=== PATIENT | male | born 1955 | race Caucasian/White ===

== ENCOUNTER 2024-02-18 07:56 | Inpatient (IN) | payer MEDICARE, BC, SELFPAY ==
[2024-02-18] VITALS (40 sets, daily range): BP systolic 123–171; BP diastolic 69–112; PULSE 56–82; RESP 11–99; TEMP 36.2–37; O2SAT 93–100; BMI 36.2
--- NOTE | 2024-02-18 07:59 | EKG_ITS ---
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
--- NOTE | 2024-02-18 07:59 | XR_ITS ---
Examination: CTA carotids with intravenous contrast CTA brain, head with intravenous contrast. 2-D sagittal, coronal reconstructions. 3-D reconstructions. Exam date and time: February 18, 2024 0815 hours INDICATIONS: Stroke alert, onset focal neurologic deficit CTDI: vol (mGy) 50.22 DLP: (mGycm) 529.72 Technique: Multiple CTA axial brain, head carotid images post intravenous contrast injection 75 cc, Isovue-370. 2-D sagittal, coronal reconstructions. 3-D reconstructions, 3-D post processing including vascular maximum intensity projection images. Low dose protocols were performed. One or more of the following dose reduction techniques were used; automated exposure control, adjustment of the mA and/or KV according to patient size, use of iterative reconstruction technique. Findings: Bilateral thyroid nodules, the largest on the right side 13 mm No significant common carotid carotid bifurcation or internal carotid artery stenoses Codominant vertebral arteries with no critical stenoses Petrous juxtasellar supraclinoid internal carotid arteries do fill The M1 segments middle cerebral arteries as well as middle cerebral artery trifurcation vessels fill Basilar artery posterior cerebral arteries fill with large large vessel occlusions Anterior cerebral arteries fill IMPRESSION: Bilateral thyroid nodules, recommend dedicated thyroid sonography follow-up No significant neck arterial stenoses No cerebral large vessel arterial occlusions depicted, cerebral assessment is limited as the 3-D images are technically poor
--- NOTE | 2024-02-18 07:59 | XR_ITS ---
Examination: CT brain head without contrast. 2-D sagittal coronal reconstructions Date and time of exam:February 17, 2024 at 0803 hrs. Indications: Stroke alert, onset left-sided facial droop this morning CTDI: vol (mGy):51.2 DLP: (mGycm):1169 Technique: Multiple CT axial sections of the brain have been obtained, 5 mm slice thickness. Contrast has not been administered. 2-D sagittal, coronal reconstructions have been obtained Low dose protocols were performed. One or more of the following dose reduction techniques were used; automated exposure control, adjustment of the mA and/or KV according to patient size, use of iterative reconstruction technique. Findings: No significant ventricular enlargement. Intra-axial or extra-axial hemorrhage density is not seen. No mass effect or midline shift Basal cisterns are not remarkable. Fourth ventricle is midline. Cranial vault intact. Impression: Negative for acute hemorrhage, mass effect or midline shift
--- NOTE | 2024-02-18 08:02 | PD.EDNEURO ---
Neuro Symptoms Deficit-RME/HPI General Stated Complaint: STROKE Time Seen by Provider: 02/18/24 07:59 Arrival date/time: 02/18/24 07:56 RME / HPI RME / HPI Narrative: 68 year old male with history of seizures presents to the ED BIBA from home for evaluation of stroke like symptoms today. Per medics, family at home reported patient woke up around 5 am today at his usual state of health. Noticed at around 07:25 am today the patient had left facial droop and left sided weakness. On their evaluation patient had obvious left facial droop, slurred speech, and prehospital BS 153. While in the ED patient reports having a seizure this morning although was not witnessed by any of his family. States with his previous seizures, he typically feels tired afterward, but the symptoms today are new for him. Denies any previous history of CVA. Denies recent illness, fevers, chills, chest pain, cough, shortness of breath, abdominal pain, n/v/d, or urinary symptoms. Related Data Home Medications ?Medication ?Instructions ?Recorded ?Confirmed levetiracetam 750 mg 1,500 mg PO BID Seizures ##30 12/23/12 02/18/24 tablet,extended release 24 hr (Keppra XR) zonisamide 100 mg capsule 300 mg PO BID Seizures #0 caps 12/23/12 02/18/24 clonazepam 1 mg tablet 1 mg PO BID PRN Seizures 02/18/24 02/18/24 omeprazole 40 mg capsule,delayed 40 mg PO QDAY 02/18/24 02/18/24 release phenytoin sodium extended 100 mg 100 mg PO TID 02/18/24 02/18/24 capsule Allergies Allergy/AdvReac Type Severity Reaction Status Date / Time No Known Allergies Allergy Verified 11/23/23 09:09 Review of Systems Review of Systems Narrative Review of Systems: Constitutional: DENIES; Fevers Eyes: DENIES; Loss of vision Head/Ear/Nose: DENIES; Loss of hearing Throat: DENIES; Dysphagia Cardiovascular: DENIES; Chest pain, dyspnea or syncope Respiratory: DENIES; Shortness of breath Gastrointestinal: DENIES; Rectal bleeding or melena. Genitourinary: DENIES; Dysuria (painful or difficult urination) Musculoskeletal: DENIES; Arthralgia (pain in a joint),; Skin: DENIES; Rash Neurological: SEE HPI +Left sided weakness, slurred speech, left facial droop, seizure per patient Psychiatric: DENIES; recent major life stressor, emotional problem, illicit drug use or abuse Endocrinology: DENIES; Weight change Hematologic/Lymphatic: DENIES; Abnormal bruising Allergic/Immunologic: DENIES; Urticaria (hives) Past Medical History Past Medical History NEUROLOGIC: Positive Neurological Disorders, Seizures and Head Trauma (from seizure) RESPIRATORY: Positive Pneumonia ENT: Positive Head Trauma (from seizure) OTHER HISTORY: Positive Hospitalization, Chicken Pox, Measles and Mumps Surgical History SURGICAL: Positive Vasectomy Social History SMOKING STATUS: Never smoker ED Exam Narrative Physical exam: Physical Exam: General: The vital signs were reviewed. Patient is brought in by EMS for stroke alert has obvious dense left hemiparesis and slurring of his words. They also think he may have had a seizure prior to the onset of this see MDM for further discussion. the patient is non-toxic, in no apparent distress and appears healthy with a patent airway, no respiratory distress and has no apparent circulatory problems. Head & Scalp: Normocephalic, atraumatic. Face: Appears normal and is without lesions, deformity. Ears: Left external pinna appears normal. Right external pinna appears normal. Eyes: The sclera is anicteric. No obvious photophobia. The Left and Right Orbit/Lid/Conjunctiva appears normal without swelling, discoloration or injection. Nose: The nose is without deformity, discharge or tenderness; Throat: Appears normal. The mucous membranes are pink and moist without exudates, redness or mass seen. The tongue appears normal. Neck: The neck is supple and no apparent mass or adenopathy. Chest: The chest wall is normal in size and symmetry and has no chest wall tenderness or crepitus. The patient displays normal ventilator effort without retractions, accessory muscle use and has adequate air movement bilaterally with no wheezes and no rales. Cardiovascular: Regular rate and rhythm; No murmurs, rubs, or gallops; Gastrointestinal: The abdomen appears normal. No obvious hernias or mass. The abdomen is soft and benign, non-distended, with no pain, no guarding and no rebound tenderness. Bowel sounds are present and normal sounding. No CVA tenderness. Genitourinary: Back/Spine: Normal inspection Extremities/Musculoskeletal/lymphatic: The bilateral upper and lower extremities are warm. There is no evidence of arterial insufficiency. There is no evidence of venous insufficiency/edema. There is no apparent, injury or trauma. Skin: The skin is warm, dry and intact. No rashes. No petechia. No purpura. No abnormal bruising. The color is appropriate with no cyanosis. Mental status/Psychiatric: Mental status is appropriate for age. The patient has no apparent delusions, visual hallucinations, no apparent audible hallucinations. The patient has no apparent suicidal thoughts/ideation and no apparent homicidal thoughts/ideation. Neurological: The patient is awake, alert, interactive, cordial, cooperative and is oriented to name and situation. The patient follows commands in the ambulance bay has obvious slurring of his words hard to understand at times. He appears to answer his questions appropriately he is got weakness of his right leg 3/5 and is got a dense paresis of his left leg and left arm and can squeeze with his right arm with fairly good strength. Evidently the symptoms are acute on the left side for the last 35 minutes prior to arrival and therefore stroke alert was called. Course Quality Measures Suspected type of Stroke: Unknown at this time Last known well (date): 02/18/24 Last known well (time): 07:25 Tenecteplase given: within 60 min of arrival stroke Orders Category Date Time Status Bedside Blood Glucose NOW Care 02/18/24 07:59 Active Retail Advertising Account Executive NOW Care 02/18/24 07:59 Active Continuous Pulse Oximetry NOW Care 02/18/24 07:59 Active EKG (ED ONLY) *Do not use* NOW Care 02/18/24 07:59 Completed In and Out Catheter NEEDED Care 02/18/24 07:59 Active Insert IV NOW Care 02/18/24 07:59 Active NIH Stroke Scale now Care 02/18/24 07:59 Active NPO NOW Care 02/18/24 07:59 Active Neuro Check Q1H Care 02/18/24 08:00 Active Nurse Swallow Screen x1 Care 02/18/24 07:59 Active Consult to Neurology / Tele-Neurology Routine Cons 02/18/24 07:[address] angio stroke protocol Stat Exams 02/18/24 07:[address] stroke protocol Stat Exams 02/18/24 07:59 Completed EKG (ED Only) Stat Exams 02/18/24 07:59 Draft Blood Culture (Lab) Stat Lab 02/18/24 08:55 Received CBC Stat Lab 02/18/24 08:50 Completed Comprehensive Metabolic Panel Stat Lab 02/18/24 08:10 Completed Drug Screen,Urine Stat Lab 02/18/24 09:00 Completed HCG Titer if Positive Stat Lab 02/18/24 08:10 Completed Lactate (Lactic Acid) Stat Lab 02/18/24 08:50 Completed Magnesium Stat Lab 02/18/24 08:10 Completed Partial Thromboplastin Time Stat Lab 02/18/24 08:10 Completed Prothrombin Time with INR Stat Lab 02/18/24 08:10 Completed Troponin I Stat Lab 02/18/24 08:10 Completed Urinalysis Stat Lab 02/18/24 09:47 Ordered Urine Culture Stat Lab 02/18/24 09:47 Ordered Venous Blood Gas Stat Lab 02/18/24 08:50 Completed Ondansetron Inj [Zofran Inj] Med 02/18/24 07:59 Active 4 mg IV Q4HR PRN Tenecteplase Inj [TNKase Inj] Med 02/18/24 08:37 Discontinued 25 mg IV X1 ONE Tenecteplase Inj [TNKase Inj] Med 02/18/24 08:35 Discontinued 50 mg .ROUTE .STK-MED ONE Oxygen Delivery NOW RT 02/18/24 07:59 Active Vital Signs Vital signs: Vital Signs Pulse Rate 79 02/18/24 08:42 Respiratory Rate 20 02/18/24 08:42 Pulse Oximetry (%) 93 L 02/18/24 08:42 Pulse ox is 98% on room air which is adequate. Neuro Symptoms / Deficit MDM Narrative MDM Narrative:: IKristi am scribing for and in the presence of Dr. Weaver. Patient comes in as a stroke alert is obvious dense left hemiparesis slurring of his words and initial CT scan is negative for any blood in the teleneurologist has seen the patient and is ordered thrombolytics. Patient be an obvious admit to the ICU. On my concerns that since he might of had a seizure before all this is as a Jung's paralysis although there is no previous history of this. Critical care is been called and will be admitting this patient. Patient appears to be more alert and speaking better and moving his left leg now. Note the symptoms are rapidly improving immediately after given the TNK although I am not certain that is the cause of this.. Patient data External records reviewed:: [facility] previous records (I reviewed ED visit on 07/14/2025) Clinical information provided by:: patient and EMS (Provided prehospital course) Social determinants that could affect healthcare access:: none Patient has the following chronic illnesses:: Seizures How is presenting disease/condition affected by chronic disease/condition?: exacerbated by Evaluation data The following diagnostics were reviewed and interpreted by me:: lab results, radiology exam(s) and EKG tracing(s) (Sinus rhythm, rate 73, no STEMI. ) Lab and/or radiology exams considered but not ordered:: None Interpretation Summary: Ordering Physician: Chance Weaver MD Date of Service: 02/18/24 Procedure(s): CT stroke protocol Accession Number(s): [id number] cc: Chance Weaver MD; Kushal Mena MD~ Examination: CT brain head without contrast. 2-D sagittal coronal reconstructions Date and time of exam:February 17, 2024 at 0803 hrs. Indications: Stroke alert, onset left-sided facial droop this morning CTDI: vol (mGy):51.2 DLP: (mGycm):1169 Technique: Multiple CT axial sections of the brain have been obtained, 5 mm slice thickness. Contrast has not been administered. 2-D sagittal, coronal reconstructions have been obtained Low dose protocols were performed. One or more of the following dose reduction techniques were used; automated exposure control, adjustment of the mA and/or KV according to patient size, use of iterative reconstruction technique. Findings: No significant ventricular enlargement. Intra-axial or extra-axial hemorrhage density is not seen. No mass effect or midline shift Basal cisterns are not remarkable. Fourth ventricle is midline. Cranial vault intact. Impression: Negative for acute hemorrhage, mass effect or midline shift Dictated By: Kushal Mena MD Signed By: <Electronically signed by Kushal Mena MD in [place]> 02/18/24 0821 Ordering Physician: Chance Weaver MD Date of Service: 02/18/24 Procedure(s): CT angio stroke protocol Accession Number(s): [id number] cc: Chance Weaver MD; Kushal Mena MD~ Examination: CTA carotids with intravenous contrast CTA brain, head with intravenous contrast. 2-D sagittal, coronal reconstructions. 3-D reconstructions. Exam date and time: February 18, 2024 0815 hours INDICATIONS: Stroke alert, onset focal neurologic deficit CTDI: vol (mGy) 50.22 DLP: (mGycm) 529.72 Technique: Multiple CTA axial brain, head carotid images post intravenous contrast injection 75 cc, Isovue-370. 2-D sagittal, coronal reconstructions. 3-D reconstructions, 3-D post processing including vascular maximum intensity projection images. Low dose protocols were performed. One or more of the following dose reduction techniques were used; automated exposure control, adjustment of the mA and/or KV according to patient size, use of iterative reconstruction technique. Findings: Bilateral thyroid nodules, the largest on the right side 13 mm No significant common carotid carotid bifurcation or internal carotid artery stenoses Codominant vertebral arteries with no critical stenoses Petrous juxtasellar supraclinoid internal carotid arteries do fill The M1 segments middle cerebral arteries as well as middle cerebral artery trifurcation vessels fill Basilar artery posterior cerebral arteries fill with large large vessel occlusions Anterior cerebral arteries fill IMPRESSION: Bilateral thyroid nodules, recommend dedicated thyroid sonography follow-up No significant neck arterial stenoses No cerebral large vessel arterial occlusions depicted, cerebral assessment is limited as the 3-D images are technically poor Dictated By: Kushal Mena MD Signed By: <Electronically signed by Kushal Mena MD in [place]> 02/18/24 0922 Medications / Prescriptions Medications or Prescriptions considered but not ordered:: None Medication administrations:: Medication Administration History Acetaminophen (Acetaminophen 325 Mg Tablet) 650 mg PO Q4HR PRN PRN Reason: PAIN SCALE 1-3 (mild Stop: 03/19/24 09:18 Acetaminophen (Acetaminophen Supp 650 Mg Supp) 650 mg AK Q4HR PRN PRN Reason: PAIN SCALE 1-3 (mild Stop: 03/19/24 09:18 Al Hydrox/Mg Hydrox/Simethicone (Mg Hyd/Al Hyd/Daniel (Maalox Reg) Susp 30 Ml Udc) 30 ml PO Q4HR PRN PRN Reason: Heartburn or Upset Stomach Stop: 03/19/24 09:18 Nicardipine/Sodium Chloride (Cardene Ivpb) 20 mg in 200 mls @ 50 mls/hr IV .Q4H PRN; Protocol PRN Reason: PER PROTOCOL Stop: 03/19/24 09:23 Sodium Chloride (Ns) 1,000 mls @ 50 mls/hr IV .Q20H GERARDO Stop: 03/19/24 15:46 Labetalol HCl (Labetalol Inj 5 Mg/Ml Vial 20 Ml) 10 mg IV X1 PRN PRN Reason: BP 180/105 and HR > 70 Magnesium Hydroxide (Milk Of Magnesia Susp 30 Ml Udc) 30 ml PO QDAY PRN PRN Reason: CONSTIPATION Stop: 03/19/24 09:18 Nitroglycerin (Nitroglycerin 0.4 Mg Subl Btl #25) 0.4 mg SL Q5MIN PRN PRN Reason: CHEST PAIN Ondansetron HCl (Ondansetron Inj 2 Mg/Ml Inj 2 Ml) 4 mg IV Q4HR PRN PRN Reason: NAUSEA OR VOMITING Stop: 03/19/24 07:58 Discontinued Medications Labetalol HCl (Labetalol Inj 5 Mg/Ml Vial 20 Ml) 10 mg IV X1 PRN PRN Reason: BP 180/105 Stop: 03/19/24 09:23 Tenecteplase (Tenecteplase Inj 50 Mg Vial) 25 mg IV X1 ONE Stop: 02/18/24 08:38 Last Admin: 02/18/24 08:46 Dose: 25 mg Documented By: AM Co-signed By: MEREDITH Tenecteplase (Tenecteplase Inj 50 Mg Vial) Confirm Administered Dose 50 mg .ROUTE .STK-MED ONE Stop: 02/18/24 08:36 Last Admin: 02/18/24 08:47 Dose: Not Given Documented By: AM Non-Admin Reason: Override Medication See above Consultations Consultation(s) initiated? (list below): Yes Consultation #1 (Physician, Specialty, Details): I spoke with teleneurologist Dr. Menendez, reports patient is a candidate for TNKase and will be ordered. Time: 08:50 Consultation #2 (Physician, Specialty, Details): I spoke with burn nurse Dr. Duong as noted above. Diagnosis Neuro Differential Diagnosis: subarachnoid hemorrhage, cerebrovascular accident, transient cerebral ischemia and other (Seizure) Most likely diagnosis given after review of the tests above:: Acute left hemiparesis Slurred speech seizure disorder Admission Indicated Admission indicated?: indicated Admission Request Was there a request for admission?: Yes Admission Attestation Admission request attestation: Discussed case with [] from Hospitalist service regarding admission. Discussed patients ED course, exam findings, labs, and radiology results. The Hospitalist [agrees,declines] to accept the patient for admission. Disposition Plan Disposition Plan: Admit Critical Care Time Critical Care Time Critical Care Time: Yes Total Critical Care Time (min.): 45 Attestation: The high probability of sudden, clinically significant deterioration in the patient's condition required the highest level of my preparedness to intervene urgently. The services I provided to this patient were to treat and/or prevent clinically significant deterioration. Services included the following: chart data review, reviewing nursing notes and/or old charts, documentation time, building energy consultant collaboration regarding findings and treatment options, medication orders and management, direct patient care, vital sign assessments and ordering, interpreting and reviewing diagnostic studies and lab tests. Aggregate critical care time includes only time during which I was engaged in work directly related to the patient's care, as described above, whether at bedside or elsewhere in the Emergency Department. It did not include time spent performing other reported procedures or the services of residents, students, nurses or physician assistants. Discharge Plan Plan Patient Disposition: Admit Acute Care w/in Hospital Problem List Clinical Impression: Acute left hemiparesis, Slurred speech, Hx of seizure disorder
[2024-02-18 08:37] LABS: HCG Titer if Positive Negative
[2024-02-18 08:39] LABS: Alanine Aminotransferase 17 U/L (10-49); Albumin, Serum 4.1 gm/dL (3.4-4.8); Albumin/Globulin Ratio 1.6 (1.2-2.2); Alkaline Phosphatase 94 U/L (46-116); Anion Gap 8 (7-16); Aspartate Amino Transferase 21 U/L (0-34); BUN/Creatinine Ratio 18 Ratio (12-20); Bilirubin,Total 0.3 mg/dL (0.3-1.2); Blood Urea Nitrogen 18 mg/dL (9-23); Calcium 9.5 mg/dL (8.3-10.6); Calcium (Corrected) 9.5 mg/dL (8.5-10.1); Carbon Dioxide 22.6 mMol/L (20.0-31.0); Chloride 108 mMol/L (98-107); Estimated Creatinine Clearance 86.7 mL/min (>60); Globulin 2.5 gm/dL (2.3-3.5); Glucose 154 mg/dL (74-106); Osmolality,Calculated 282 (275-295); Potassium 3.9 mMol/L (3.4-5.1); Sodium 139 mMol/L (136-145); Total Protein 6.6 gm/dL (5.7-8.2); Troponin I < 0.020 ng/mL (0.0-0.045); eGFR > 60 See Note
[2024-02-18 08:41] LABS: INR 1.1 (0.9-1.3); Partial Thromboplastin Time 20.8 Seconds (22.0-36.0); Prothrombin Time 12.3 Seconds (9.0-12.2)
[2024-02-18] MEDS: TENECTEPLASE INJ 50 MG VIAL 25 MG IV (08:46)
--- NOTE | 2024-02-18 08:50 | PD.TNEURO ---
Tele Neuro Consultation Consultation Date 02/18/24 Laboratory-Coagulation Panel PT 12.3 Seconds (9.0-12.2) H 02/18/24 08:10 INR 1.1 (0.9-1.3) 02/18/24 08:10 APTT 20.8 Seconds (22.0-36.0) L 02/18/24 08:10 Consultation Narrative [facility] TeleNeurology Consult Services Patient Name:???Brock Mcintyre Date of :???1955 Identification Number:??? Date of Service:???02/18/2024 07:53:52 Diagnosis:?I63.89 - Cerebrovascular accident (CVA) due to other mechanism ([facility]) Impression: ?Acute onset of left-sided weakness involving the face, upper and lower extremity with considerable dysarthria, unclear if it was preceded by a seizure event. Patient has a known history of seizures, however there is no clear history of Ujng's paralysis after seizure. Will treat this as an acute vascular event. ?Concern is for right basal ganglia versus pontine infarct. ?Head CT appears unremarkable with no hemorrhage or acute ischemic changes. ?Patient qualifies for IV thrombolysis. Last well-known less than 4-1/2 hours. ?Risks and benefits of IV thrombolysis was discussed in detail with the who was reached at [phone]. Indications and contraindications were also discussed in detail. ? agrees to IV thrombolytic treatment recommendation. ?TNKase was administered without any complication. ? ?Seizure recommendations ?Patient displayed considerable improvement soon after TNKase administration. Likely Jung's paralysis after breakthrough seizures. ?Please obtain Dilantin level. Restart home seizure medications. Obtain MRI brain with and without contrast. If MRI brain is negative for any acute ischemia, most likely postseizure Jung's paralysis. May need AED adjustment. Our recommendations are outlined below. Recommendations: IV Tenecteplase recommended. I confirmed the following. (Patient name, , MRN, Blood Pressure, dose of Thrombolytic and waste, weight completed by stretcher/scale not stated weight, have ED staff inform ED MD of thrombolytic decision) Thrombolytic bolus given Without Complication. IV Tenecteplase Total Dose ? 25.0 mg Routine post Thrombolytic monitoring including neuro checks and blood pressure control during/after treatment Monitor blood pressure Check blood pressure and neuro assessment every 15 min for 2 h, then every 30 min for 6 h, and finally every hour for 16 h. Manage Blood Pressure per post Thrombolytic protocol. ? Follow designated hospital protocol for admission and post thrombolytic care ? CT brain 24 hours post Thrombolytic ? NPO until swallowing screen performed and passed ? No antiplatelet agents or anticoagulants (including heparin for DVT prophylaxis) in first 24 hours ? No Cohen catheter, nasogastric tube, arterial catheter or central venous catheter for 24 hr, unless absolutely necessary ? Telemetry ? Bedside swallow evaluation ? HOB less than 30 degrees ? Euglycemia ? Avoid hyperthermia, PRN acetaminophen ? DVT prophylaxis ? Inpatient Neurology Consultation ? Stroke evaluation as per inpatient neurology recommendations Discussed with ED physician Advanced Imaging:Advanced imaging has been ordered. Results pending. Metrics: Last Known Well: 02/18/2024 06:00:00 Dispatch Time: 02/18/2024 07:53:52 Arrival Time: 02/18/2024 07:53:57 Initial Response Time: 02/18/2024 07:58:06Symptoms: Left sided weakness. Initial patient interaction: 02/18/2024 08:13:56 NIHSS Assessment Completed: 02/18/2024 08:16:30Patient is a candidate for Thrombolytic. Thrombolytic Medical Decision: 02/18/2024 08:19:08 Needle Time: 02/18/2024 08:44:43Weight Noted by Staff: 108.4 kg I personally Reviewed the CT Head and it Showed no acute changes Primary Provider Notified of Diagnostic Impression and Management Plan on: 02/18/2024 08:48:24 Thrombolytic Contraindications: Last Known Well > 4.5 hours:?No CT Head showing hemorrhage:?No Ischemic stroke within 3 months:?No Severe head trauma within 3 months:?No Intracranial/intraspinal surgery within 3 months:?No History of intracranial hemorrhage:?No Symptoms and signs consistent with an SAH:?No GI malignancy or GI bleed within 21 days:?No Coagulopathy: Platelets <100 000 /mm3, INR >1.7, aPTT>40 s, or PT >15 s:?No Treatment dose of LMWH within the previous 24 hrs:?No Use of NOACs in past 48 hours:?No Glycoprotein IIb/IIIa receptor inhibitors use:?No Symptoms consistent with infective endocarditis:?No Suspected aortic arch dissection:?No Intra-axial intracranial neoplasm:?No Thrombolytic Decision and Management Plan: Management with thrombolytic treatment was explained to the Family as was risks and benefits and alternatives to the treatment. Patient agrees with the decision to proceed with thrombolytic treatment. . All questions were answered and the Family expressed understanding of the treatment plan. History of Present Illness:Patient is a 68 year old Male. Patient was brought by EMS for symptoms of Left sided weakness. Patient is a 68-year-old male with a past medical history of seizures, GERD is being evaluated for concerns of left-sided weakness. Patient woke up at approximately 6 AM this morning. As per who was reached at [phone] patient was normal and went and took a shower at approximately 6 to 6:30 AM. Soon after that patient had a seizure, unclear if the witnessed it. And after that he has been having left-sided weakness involving the face and arm. mentions that he regularly takes his seizure medications. His medications for seizures include Dilantin, Keppra, zonisamide and clonazepam. Patient mentions that he typically does not have weakness after his seizure. Mentions that this is all new. ? Past Medical History: ?Stroke ?Seizures ?There is no history of Hypertension ?There is no history of Diabetes Mellitus ?There is no history of Hyperlipidemia Other PMH:? GERD Medications: No Anticoagulant use? No Antiplatelet use Reviewed EMR for current medications Allergies:? Description:?As per chart Social History: Smoking: No Alcohol Use: No Drug Use: No Family History: There is no family history of premature cerebrovascular disease pertinent to this consultation ROS : 14 Points Review of Systems was performed and was negative except mentioned in HPI. Past Surgical History: There Is No Surgical History Contributory To Today?s Visit ? Examination: BP(142/78),?Pulse(72),?Blood Glucose(153) 1A: Level of Consciousness - Alert; keenly responsive?+ 0 1B: Ask Month and Age - Both Questions Right?+ 0 1C: Blink Eyes & Squeeze Hands - Performs Both Tasks?+ 0 2: Test Horizontal Extraocular Movements - Normal?+ 0 3: Test Visual Oneal - No Visual Loss?+ 0 4: Test Facial Palsy (Use Grimace if Obtunded) - Minor paralysis (flat nasolabial fold, smile asymmetry)?+ 1 5A: Test Left Arm Motor Drift - No Effort Against [place]?+ 3 5B: Test Right Arm Motor Drift - No Drift for 10 Seconds?+ 0 6A: Test Left Leg Motor Drift - Drift, hits bed?+ 2 6B: Test Right Leg Motor Drift - No Drift for 5 Seconds?+ 0 7: Test Limb Ataxia (FNF/Heel-Powell) - No Ataxia?+ 0 8: Test Sensation - Normal; No sensory loss?+ 0 9: Test Language/Aphasia - Normal; No aphasia?+ 0 10: Test Dysarthria - Severe Dysarthria: Unintelligble Slurring or Out of Proportion to Aphasia?+ 2 11: Test Extinction/Inattention - No abnormality?+ 0 NIHSS Score:?8 Pre-Morbid Modified Kenton Scale:Unable to assess Spoke with :?ED Provider This consult was conducted in real time using interactive audio and video technology. Patient was informed of the technology being used for this visit and agreed to proceed. Patient located in hospital and provider located at home/office setting. Patient is being evaluated for possible acute neurologic impairment and high probability of imminent or life-threatening deterioration. I spent total of 60 minutes providing care to this patient, including time for face to face visit via telemedicine, review of medical records, imaging studies and discussion of findings with providers, the patient and/or family. Dr Rajeev Menendez [facility] For Inpatient follow-up with [facility] physician please call [facility] at . As we are not an outpatient service for any post hospital discharge needs please contact the hospital for assistance. If you have any questions for the [facility] physicians or need to reconsult for clinical or diagnostic changes please contact us via [facility] at . ?
--- NOTE | 2024-02-18 09:05 | PC.NURSE ---
blood pressure cuff readjusted.
[2024-02-18 09:14] LABS: Collection Type, Urine Catheter; Squamous Epithelial Cell,Urine 0 /hpf (0-5)
[2024-02-18 09:18] LABS: Base Excess, Venous -4 (-3-3); O2 Saturation, Venous 97 % (96-97); PCO2, Venous 42 mmHg (36-56); PO2, Venous 81 mmHg (15-58); pH, Venous 7.32 (7.33-7.66)
[2024-02-18 09:19] LABS: Lactate (Lactic Acid) 1.6 mMol/L (0.4-2.0)
--- NOTE | 2024-02-18 09:22 | ECHO_ITS ---
Transthoracic Echo Report Ht (in): 68 Wt (lb): 239 Exam Location: Portable Status: Preadmit Fast Food Manager: Sharda Mora Indications: Procedure Performed: BP: 138 / 81 HR: 60 Rhythm: Sinus Technical Quality: Technically difficult study Contrast: Agitated Saline Total Dose (mL): MEASUREMENTS (Male / Female) Normal Values 2D ECHO LV Diastolic Diameter PLAX 4.7 cm 4.2 - 5.9 / 3.9 - 5.3 cm LV Systolic Diameter PLAX 3.3 cm IVS Diastolic Thickness 1.0 cm 0.6 - 1.0 / 0.6 - 0.9 cm LVPW Diastolic Thickness 1.0 cm 0.6 - 1.0 / 0.6 - 0.9 cm LV Relative Wall Thickness 0.4 LVOT Diameter 1.8 cm LA Volume Index 22.7 cm?/m? 16 - 28 cm?/m? Ascending Aorta Diameter 3.3 cm M-MODE Aortic Root Diameter MM 2.9 cm LA Systolic Diameter MM 4.0 cm LA Ao Ratio MM 1.4 AV Cusp Separation MM 1.7 cm DOPPLER AV Peak Velocity 112.0 cm/s AV Peak Gradient 5.0 mmHg AV Mean Gradient 3.0 mmHg AV Velocity Time Integral 26.6 cm LVOT Peak Velocity 96.1 cm/s LVOT Peak Gradient 3.7 mmHg LVOT Velocity Time Integral 23.0 cm LVOT Cardiac Index 1510.8 cm?/min?m? AV Area Cont Eq vti 2.2 cm? AV Area Cont Eq pk 2.2 cm? MV Peak Velocity 80.3 cm/s MV Peak Gradient 2.6 mmHg MV Mean Velocity 44.2 cm/s MV Mean Gradient 1.0 mmHg MV Area PHT 3.4 cm? MR Peak Velocity 349.0 cm/s MR Peak Gradient 48.7 mmHg Mitral E Point Velocity 64.0 cm/s Mitral A Point Velocity 89.2 cm/s Mitral E to A Ratio 0.7 LV E' Lateral Velocity 10.4 cm/s Mitral E to LV E' Lateral Ratio 6.2 LV E' Septal Velocity 8.2 cm/s Mitral E to LV E' Septal Ratio 7.8 FINDINGS Left Ventricle Normal left ventricular size, wall thickness, systolic function with no obvious regional wall motion abnormalities. The ejection fraction is visually estimated at 55-60%. Right Ventricle The right ventricle is normal in size and systolic function. Left Atrium The left atrium is normal by two-dimensional, color flow and Doppler imaging with no structural abnormalities, no thrombus formation present. Right Atrium The right atrium is normal by two-dimensional imaging, color flow and Doppler imaging with no struct ural abnormalities, no thrombus formation present. Atrial Septum The interatrial septum appears normal with no evidence of a shunt. Aorta The aorta is normal by two-dimensional, color flow and Doppler interrogation. Mitral Valve The mitral valve is normal by two-dimensional, color flow and Doppler interrogation. There is mild m itral valve regurgitation. Aortic Valve The aortic valve is trileaflet and normal by two-dimensional, color flow and Doppler interrogation. There is trace aortic valve regurgitation. Tricuspid Valve The tricuspid valve is normal by two-dimensional, color flow and Doppler interrogation. There is tra ce tricuspid valve regurgitation. Pulmonic Valve There is trace pulmonic valve regurgitation. Vessels The pulmonary artery appears normal. The inferior vena cava pulmonary and hepatic veins appear kae l. Pericardium The pericardium is normal by two-dimensional imaging. There is no significant pericardial effusion. CONCLUSIONS Indication: CVA Negative bubble study. Suboptimal images due to body habitus. Consider LIAT if high clinical suspicio n. Normal LV size and function. Stage I diastolic dyfunction. Estimated EF 55-60% Normal RV size and function. Mild MR. Trace AI, TR. PI. Constantine Thompson (Electronically Signed) Final Date: 18 February 2024 18:00
[2024-02-18 09:23] LABS: Bilirubin,Urine Negative (Negative); Blood,Urine Negative (Negative); Clarity,Urine Clear (Clear/Hazy); Color,Urine Colorless (Lt Yel-Yel); Glucose, Urine Negative (Negative); Ketones,Urine Negative (Negative); Leukocyte Esterase,Urine Negative (Negative); Nitrite,Urine Negative (Negative); Protein,Urine Negative (Neg - Trace); RBC,Urine < 1 /hpf (0-3); Urobilinogen,Urine Negative mg/dL (0.0-1.0); WBC,Urine < 1 /hpf (0-5)
[2024-02-18 09:24] LABS: Basophils % (Auto) 1 % (0-2.5); Eosinophils # (Auto) 0.2 Thou/mm3 (0.0-0.5); Eosinophils % (Auto) 2 % (0-10); Hematocrit 41.4 % (41.0-53.0); Immature Granulocytes % (Auto) 2 % (0-0); Immature Granulocytes Auto 0.13 Thou/mm3 (0.00-0.00); Lymphocytes # (Auto) 1.2 Thou/mm3 (1.0-4.8); Lymphocytes % (Auto) 16 % (10-50); Mean Corpuscular HGB Conc 33.8 g/dl (31.0-37.0); Mean Corpuscular Hemoglobin 32.9 pg (25.0-35.0); Mean Corpuscular Volume 97 fL (80-100); Monocytes # (Auto) 0.9 Thou/mm3 (0.0-0.8); Monocytes % (Auto) 11 % (0-12); Neutrophils # (Auto) 5.4 Thou/mm3 (1.8-7.7); Neutrophils % (Auto) 69 % (37-80); Nucleated Red Blood Cell % 0 /100 WBC (0); Platelet Count 251 Thou/mm3 (140-440); RDW Standard Deviation 47.7 fL (35.1-43.9); Red Blood Count 4.25 Miln/mm3 (4.50-5.90); White Blood Count 7.9 Thou/mm3 (3.8-10.6)
[2024-02-18 09:32] LABS: Amphetamine/Methamp Scrn,U Negative (Negative); Benzodiazepines Screen,Urine Negative (Negative); Benzoylecgonine Screen, Ur Negative (Negative); Opiate Screen,Urine Negative (Negative); THC Screen,Urine Negative (Negative)
--- NOTE | 2024-02-18 09:32 | PC.NURSE ---
client project coordinator: late entry for 0835 - noted difficulty placing IV, requiring multiple attempts by bedside RN.
--- NOTE | 2024-02-18 10:04 | PC.NURSE ---
pt now has a left sided facial droop and cannot left left arm. Charge nurse notified because another stroke alert was going to be called. per charge nurse, Pt does not need another stroke alert, just call the admitting doctor.
--- NOTE | 2024-02-18 10:11 | PC.NURSE ---
Dr. Diego contacted . Charge nurse called department coordinator. Kandice at bedside. Kandice calling Dr. Dumont for another head CT.
--- NOTE | 2024-02-18 10:19 | PC.NURSE ---
1017 pt still has slight facial droop, but pt can move left arm now.
--- NOTE | 2024-02-18 11:22 | PC.NURSE ---
Pt back in room. Pt was taken to CT but was not able to be seen due to procedure being performed. Pt was taken to MRI, but MRI was unable completed diagnostic due to pt having a VNS.
--- NOTE | 2024-02-18 11:22 | PC.NURSE ---
[employer]: Case # [id number] has been created for a second teleneuro consult,
--- NOTE | 2024-02-18 11:25 | PC.NURSE ---
neuro tele doc talking to stacie
--- NOTE | 2024-02-18 11:32 | PC.CC ---
Patient is a 68 year-old male BIBA from home for CVA. Ayse OQUENDO made [id number] contact with patient. ASW introduced self, role, and reason for visit. Patient was able to answerr questions by nodding head in yes or no. Patient appeared alert and oriented to self, location, and situation. At bedside was patient's Diane Mcintyre whom patient provided consent to remain in the room during assessment. Patient engaged in assessment as well. Patient lives at home with his and confirmed information on demographics. Prior to patient coming to the hospital he was able to complete his own ADLs and ambulate independently. However, RN Samia reports the patient could no longer stand and is unstable. Patient receives primary care with Dr. Fulton and uses [facility] for prescription medication. Upon discharge patient's reported she is open to the patient going to a SNF if this is what he needs as she is not able to assist with ADLs as patient is much bigger than her. guest services agent to follow up with any discharge needs.
--- NOTE | 2024-02-18 11:42 | XR_ITS ---
Examination: CT brain head without contrast. 2-D sagittal coronal reconstructions Date and time of exam:February 18, 2024 1146 hours Comparison February 18, 2024 0808 hours CTDI: vol (mGy):48.9 DLP: (mGycm):999 Technique: Multiple CT axial sections of the brain have been obtained, 5 mm slice thickness. Contrast has not been administered. 2-D sagittal, coronal reconstructions have been obtained Low dose protocols were performed. One or more of the following dose reduction techniques were used; automated exposure control, adjustment of the mA and/or KV according to patient size, use of iterative reconstruction technique. Findings: No significant ventricular enlargement. Intra-axial or extra-axial hemorrhage density is not seen. No mass effect or midline shift Basal cisterns are not remarkable. Fourth ventricle is midline. Cranial vault intact. Impression: Examination is postcontrast which significantly limits assessment for hemorrhage No mass effect No gross hemorrhage
--- NOTE | 2024-02-18 11:56 | PD.TNEURO ---
Tele Neuro Consultation Consultation Date 02/18/24 Most Recent Vital Signs Last Vital Signs Pulse 60 02/18/24 11:20 Resp 19 02/18/24 11:20 BP 138/81 H 02/18/24 11:20 Pulse Ox 98 02/18/24 11:20 O2 Del Method Room Air 02/18/24 11:20 Laboratory-Coagulation Panel PT 12.3 Seconds (9.0-12.2) H 02/18/24 08:10 INR 1.1 (0.9-1.3) 02/18/24 08:10 APTT 20.8 Seconds (22.0-36.0) L 02/18/24 08:10 Consultation Narrative [facility] Tele[facility]urology Consult Services Patient Name:???Brock Mcintyre Date of :???1955 Identification Number:??? Date of Service:???02/18/2024 11:22:16 Diagnosis:?I63.89 - Cerebrovascular accident (CVA) Impression: ?68 y/o with h/o epilepsy s/p VNS who presented to the ED with left sided weakness s/p seizure. TNK given already. Pending admission Our recommendations are outlined below. Recommendations: ? Neuro Checks ? Bedside Swallow Eval ? DVT Prophylaxis ? IV Fluids, Normal Saline ? Head of Bed 30 Degrees ? Euglycemia and Avoid Hyperthermia (PRN Acetaminophen) ?Admit to ICU s/p TNK Sign Out: ? Discussed with Primary Attending ? Discussed with Rapid Response Team Advanced Imaging: Advanced Imaging Deferred because: Already done Metrics: Last Known Well: 02/18/2024 06:00:00 Dispatch Time: 02/18/2024 11:22:16 Arrival Time: 02/18/2024 07:53:00 Initial Response Time: 02/18/2024 11:24:36Symptoms: left sided weakness. Initial patient interaction: 02/18/2024 11:24:36 NIHSS Assessment Completed: 02/18/2024 11:32:58Patient is not a candidate for Thrombolytic. Thrombolytic Medical Decision: 02/18/2024 11:32:58Patient was not deemed candidate for Thrombolytic because of following reasons: other diagnosis suspected Patient already received another TNK. I personally Reviewed the CT Head and it Showed No Acute Hemorrhage or Acute Core Infarct Primary Provider Notified of Diagnostic Impression and Management Plan on: 02/18/2024 11:55:25 History of Present Illness:Patient is a 68 year old Male. Patient was brought by EMS for symptoms of left sided weakness. 68 y/o with h/o epilepsy s/p VNS who presented to the ED with left sided weakness s/p seizure. Last known well at 0600. Patient received TNK at 0844. Repeat stroke alert called for left sided weakness. NIHSS [address] Menendez's initial consult. Pending admission s/p TNK. CT brain, CTA head and CTA neck done earlier. NIHSS 3 now. Patient reports his symptoms have improved since TNK. He denies headache. Repeat CT brain reviewed. Past Medical History: ?There is no history of Hypertension ?There is no history of Diabetes Mellitus ?There is no history of Hyperlipidemia ?There is no history of Atrial Fibrillation ?There is no history of Coronary Artery Disease ?There is no history of Stroke ?There is no history of Covid-19 ?There is no history of Seizures ?There is no history of Migraine Headaches ?There is no history of Dementia/MCI Other PMH:? as per HPI Medications: No Anticoagulant use? No Antiplatelet use Reviewed EMR for current medications Allergies:? NKDA Social History: Smoking: No Alcohol Use: No Drug Use: No Family History: There is no family history of premature cerebrovascular disease pertinent to this consultation ROS : 14 Points Review of Systems was performed and was negative except mentioned in HPI. Past Surgical History: There Is No Surgical History Contributory To Today?s Visit Examination: BP(138/81),?Pulse(61),?Blood Glucose(162) 1A: Level of Consciousness - Alert; keenly responsive?+ 0 1B: Ask Month and Age - Both Questions Right?+ 0 1C: Blink Eyes & Squeeze Hands - Performs Both Tasks?+ 0 2: Test Horizontal Extraocular Movements - Normal?+ 0 3: Test Visual Oneal - No Visual Loss?+ 0 4: Test Facial Palsy (Use Grimace if Obtunded) - Minor paralysis (flat nasolabial fold, smile asymmetry)?+ 1 5A: Test Left Arm Motor Drift - No Drift for 10 Seconds?+ 0 5B: Test Right Arm Motor Drift - No Drift for 10 Seconds?+ 0 6A: Test Left Leg Motor Drift - Drift, but doesn't hit bed?+ 1 6B: Test Right Leg Motor Drift - No Drift for 5 Seconds?+ 0 7: Test Limb Ataxia (FNF/Heel-Powell) - No Ataxia?+ 0 8: Test Sensation - Normal; No sensory loss?+ 0 9: Test Language/Aphasia - Normal; No aphasia?+ 0 10: Test Dysarthria - Mild-Moderate Dysarthria: Slurring but can be understood?+ 1 11: Test Extinction/Inattention - No abnormality?+ 0 NIHSS Score:?3 Pre-Morbid Modified Hancock Scale:0 Points = No symptoms at all Spoke with :?Dr. Amezcua (Maintenance Pipefitter) This consult was conducted in real time using interactive audio and video technology. Patient was informed of the technology being used for this visit and agreed to proceed. Patient located in hospital and provider located at home/office setting. Patient is being evaluated for possible acute neurologic impairment and high probability of imminent or life-threatening deterioration. I spent total of 35 minutes providing care to this patient, including time for face to face visit via telemedicine, review of medical records, imaging studies and discussion of findings with providers, the patient and/or family. Dr Andrés Guadalupe [facility] For Inpatient follow-up with [facility] physician please call [facility] at . As we are not an outpatient service for any post hospital discharge needs please contact the hospital for assistance. If you have any questions for the [facility] physicians or need to reconsult for clinical or diagnostic changes please contact us via [facility] at .
--- NOTE | 2024-02-18 12:09 | ESHP_ITS ---
<Statement entered by Jordan Duong MD - 02/19/24 14:03> TOTAL TIME: 45MINUTES ON DIRECT MEDICAL CARE, MANAGEMENT - COORDINATION AND COUNSELING > 50% OF TOTAL TIME I saw and evaluated the patient. I reviewed the resident?s note and agree with findings and plan as documented in the resident?s note. Documentation for date of: 02/18/24 HPI History of Present Illness History of present illness: Mr. Mcintyre is a 68-year-old male with past medical history significant of seizure disorder (on Keppra and zonisamide) since the age of 57 years old. Patient's at bedside and contributed to the majority of the history. Pt. this morning has a seizure which according to his is very typical because he has a seizure every single day. after the seizure which lasted 30 mins.. Pt denied postictal state, pt. showered and sat down for breakfast. after a few minutes he was not able to move his left arm and also felt like his coffee was leaking from the side of his mouth on the left and felt as though his lips were swelling. Pts observed his left side of the face was drooping. At this time, the said he did not have slurred speech but was unable to finish sentences. Pt. denied syncope, dizziness, changes to vision, nausea or vomiting. Patient's states that approximately a week ago patient fell and hit the back of his head, the patient denied any headaches or prior history of similar episodes. Patient sees Dr. Vences outpatient for the management of seizure disorder patient states he has a vagal nerve stimulator. ED course: Initial vitals included blood pressure 171/89 and all other labs include CBC, CMP, VBG, urinalysis and urine toxicology was within normal limits. In the ED patient received tenecteplase 25 Mg x 1 at 8:37 AM and tele -neuro was consulted at that time NIHSS score was 8 Images: Head CT-negative for acute hemorrhage, mass effect or midline shift Head/Neck CTA-bilateral thyroid nodules, no significant neck arterial stenosis, no cerebral large vessel arterial occlusion depicted EKG- sinus rhythm with first-degree AV block Echo- stage 1 diastolic dysfunction with ejection fraction 55 to 60% Home meds: Dilantin, Keppra, zonisamide and clonazepam Social: denies tobacco use, alcohol use or illicit drugs Review of Systems Review of Systems Systems Reviewed: All systems reviewed, normal except as documented Exam Vital Signs Pulse Resp BP Pulse Ox O2 Del Method 60 19 138/81 H 98 Room Air 02/18/24 11:20 02/18/24 11:20 02/18/24 11:20 02/18/24 11:20 02/18/24 11:20 Narrative Exam GENERAL: A&Ox3 . Awake, Not in acute distress NEURO: no focal neurological deficits HEENT: Atraumatic, Normocephalic. mucous membranes moist. Eyes open, symmetrical, & clear HEART: Normal Heart Sounds LUNGS: Clear to auscultation with no wheezing or crackles. ABDOMEN: soft, non-distended, non-tender, bowel sounds heard, no guarding or rebound tenderness SKIN: No Rash or ecchymoses EXTREMITIES: No edema, tenderness, able to move all 4 extremities, pedal pulses palpated Results: Labs 02/18/24 08:50 02/18/24 08:10 Labs: Short CBC 02/18/24 Range/Units 08:50 WBC 7.9 (3.8-10.6) Thou/mm3 Hgb 14.0 (13.5-16.0) g/dL Hct 41.4 (41.0-53.0) % Plt Count 251 (140-440) Thou/mm3 BMP 02/18/24 08:10 Sodium 139 Potassium 3.9 Chloride 108 H Carbon Dioxide 22.6 BUN 18 Creatinine 1.0 Glucose 154 H Calcium 9.5 Cardiac Enzymes 02/18/24 Range/Units 08:10 Troponin I < 0.020 (0.0-0.045) ng/mL Liver Function 02/18/24 Range/Units 08:10 Total Bilirubin 0.3 (0.3-1.2) mg/dL AST 21 (0-34) U/L ALT 17 (10-49) U/L Alkaline Phosphatase 94 (46-116) U/L Albumin 4.1 (3.4-4.8) gm/dL Urine 02/18/24 Range/Units 09:00 Urine Color Colorless A (Lt Yel-Yel) Urine Clarity Clear (Clear/Hazy) Urine pH 7.0 (5.0-7.0) Ur Specific [place] 1.020 (1.001-1.035) Urine Protein Negative (Neg - Trace) Urine Glucose (UA) Negative (Negative) ABG Interpretation ABG results: 02/18/24 08:50 VBG pH 7.32 L VBG pCO2 42 VBG pO2 81 H VBG Base Excess -4 L Quality Measures Quality Measures stroke Suspected type of Stroke: Unknown at this time Last known well (date): 02/18/24 Last known well (time): 07:25 Tenecteplase given: within 60 min of arrival Rehab services: Speech Language Pathology eval ordered VTE Prophylaxis: not indicated Antithrombotic by day 2:: contraindicated (describe) (pt. received TKA) Statin ordered: not ordered Anticoagulation ordered for A-fib or flutter (current or hx): not indicated Advance care planning discussed with:: patient and spouse Medications Home Medications and Allergies Home Medications ?Medication ?Instructions ?Recorded ?Confirmed ?Type levetiracetam 750 mg 1,500 mg PO BID Seizures ##30 12/23/12 02/18/24 History tablet,extended release 24 hr (Keppra XR) zonisamide 100 mg capsule 300 mg PO BID Seizures #0 caps 12/23/12 02/18/24 History clonazepam 1 mg tablet 1 mg PO BID PRN Seizures 02/18/24 02/18/24 History omeprazole 40 mg capsule,delayed 40 mg PO QDAY 02/18/24 02/18/24 History release phenytoin sodium extended 100 mg 100 mg PO TID 02/18/24 02/18/24 History capsule Allergies Allergy/AdvReac Type Severity Reaction Status Date / Time No Known Allergies Allergy Verified 11/23/23 09:09 Visit Medications Acetaminophen (Acetaminophen 325 Mg Tablet) 650 mg PO Q4HR PRN PRN Reason: PAIN SCALE 1-3 (mild Stop: 03/19/24 09:18 Acetaminophen (Acetaminophen Supp 650 Mg Supp) 650 mg [place] Q4HR PRN PRN Reason: PAIN SCALE 1-3 (mild Stop: 03/19/24 09:18 Al Hydrox/Mg Hydrox/Simethicone (Mg Hyd/Al Hyd/Daniel (Maalox Reg) Susp 30 Ml Udc) 30 ml PO Q4HR PRN PRN Reason: Heartburn or Upset Stomach Stop: 03/19/24 09:18 Nicardipine/Sodium Chloride (Cardene Ivpb) 20 mg in 200 mls @ 50 mls/hr IV .Q4H PRN; Protocol PRN Reason: PER PROTOCOL Stop: 03/19/24 09:23 Labetalol HCl (Labetalol Inj 5 Mg/Ml Vial 20 Ml) 10 mg IV X1 PRN PRN Reason: BP 180/105 Stop: 03/19/24 09:23 Magnesium Hydroxide (Milk Of Magnesia Susp 30 Ml Udc) 30 ml PO QDAY PRN PRN Reason: CONSTIPATION Stop: 03/19/24 09:18 Nitroglycerin (Nitroglycerin 0.4 Mg Subl Btl #25) 0.4 mg SL Q5MIN PRN PRN Reason: CHEST PAIN Ondansetron HCl (Ondansetron Inj 2 Mg/Ml Inj 2 Ml) 4 mg IV Q4HR PRN PRN Reason: NAUSEA OR VOMITING Stop: 03/19/24 07:58 Discontinued Medications Tenecteplase (Tenecteplase Inj 50 Mg Vial) 25 mg IV X1 ONE Stop: 02/18/24 08:38 Last Admin: 02/18/24 08:46 Dose: 25 mg Assessment & Plan Plan Mr. Mcintyre is a 68-year-old male with past medical history significant of seizure disorder (on Keppra and zonisamide) since the age of 57 years old. Patient's at bedside and contributed to the majority of the history. Pt. this morning has a seizure which according to his is very typical because he has a seizure every single day. after the seizure which lasted 30 mins.. Pt denied postictal state, pt. showered and sat down for breakfast. after a few minutes he was not able to move his left arm and also felt like his coffee was leaking from the side of his mouth on the left and felt as though his lips were swelling. Pts observed his left side of [facility] face was drooping. At this time, the said he did not have slurred speech but was unable to finish sentences. Pt. denied syncope, dizziness, changes to vision, nausea or vomiting. Neuro: #stroke like symptoms DDx: Acute CVA vs. TIA vs todds paralysis -LKW: 6 am -NIHSS Score: 8 -pre morbid rank scale- Unable to assess -Tele neuro consulted, recommendations appreciated -Head/Neck CTA : bilateral thyroid nodules, no significant neck arterial stenosis, no cerebral large vessel arterial occlusion depicted -Head CT: negative for acute hemorrhage, mass effect or midline shift -Echo: stage 1 diastolic dysfunction with ejection fraction 55 to 60%, Negative bubble study Plan: -patient received tenecteplase 25 Mg x 1 at 8:37 AM on 02/17 - Neuro checks q4HR - Keep head of bed elevated at 30 degrees - Euglycemia and Avoid Hyperthermia (PRN Acetaminophen) -?allow permissive HTN for first 24 hours than slowly and gradually goal normotension thereafter -?MRI brain pending -No antiplatelet agents or anticoagulants (including heparin for DVT prophylaxis) in first 24 hours -Repeat CT brain 24 hours post thrombolytic - follow up lipid panel, HbA1c, TSH with free T4 Cardiovasc: #stage 1 diastolic dysfunction -echo done 02/17- EF 55-60% -does not appear to be in CHF exacerbation, not fluid overload -continue to monitor -outpatient follow up with cardiology Pulm: #no active problems Renal: #no active problems GI: #GI ppx - non indicated #Diet - NPO until nurse swallow screen performed and passed Endo: #Thyroid Nodules -Head/Neck CTA-bilateral thyroid nodules -TSH and free T4 ordered Heme/Onc: #DVT ppx - Pt received TKA, will deffer DVT prophylaxis at this time Infxs: #no active problems Skin/Musc #no active problems Disposition: ICU for 24 hour monitoring post TKA DVT Prophylaxis: Pt received TKA, will deffer DVT prophylaxis at this time GI Prophylaxis: no indicated Diet: NPO until nurse swallow screen performed and passed Code status: Full Assessment and plan discussed with my attending physician Dr. Dr. Diego (PGY-1)- Internal medicine resident
[2024-02-18 14:30] LABS: Fentanyl Screen,Urine Negative (Negative)
[2024-02-18 15:32] LABS: Barbiturate Screen,Urine Negative (Negative)
[2024-02-18] MEDS: ZONISAMIDE 100 MG CAPSULE 300 MG PO (20:03)
[2024-02-18] MEDS: levETIRAcetam 250 MG TABLET 1500 MG PO (20:03)
[2024-02-18] MEDS: PHENYTOIN 100 MG CAPSR PO (21:16)
[2024-02-19] VITALS (18 sets, daily range): BP systolic 110–150; BP diastolic 67–97; PULSE 50–78; RESP 12–99; TEMP 36.2–37.1; O2SAT 95–99; BMI 34.2; BMI 12.0
--- NOTE | 2024-02-19 | XR_ITS ---
Examinations: MRI Brain without intravenous contrast. MRA brain without intravenous contrast. MRA carotids without intravenous contrast 3-D vascular reconstructions Date and time of exam: February 19, 2024 1440 hours INDICATIONS: Onset focal neurologic deficit left-sided body weakness slurred speech beginning yesterday Technique: Multiple axial and sagittal images of the brain have been obtained Limited images Findings: Sell[place] is not enlarged. The optic chiasm and infundibular stalk are not remarkable. Prepontine and interpeduncular cisterns are not enlarged. No localized enlargement of the medulla or jessica. Fourth ventricle and cerebellar tonsils normal in position. Subacute hemorrhage is not seen. Fourth ventricle is midline. Mass in the cerebellopontine angle region is not evident. 7th and 8th nerve complexes exhibits symmetry. Globes are symmetrical with no retro-orbital mass. Increased white matter signal moderate Diffusion-weighted images demonstrate 25 mm focus restricted diffusion right caudate nucleus Mass-effect upon the ventricular system is not identified. 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
[2024-02-19] MEDS: PHENYTOIN 100 MG CAPSR PO ×3 (05:07→21:34)
[2024-02-19 06:05] LABS: Basophils # (Auto) 0.1 Thou/mm3 (0.0-0.2); Basophils % (Auto) 1 % (0-2.5); Eosinophils # (Auto) 0.2 Thou/mm3 (0.0-0.5); Eosinophils % (Auto) 2 % (0-10); Hematocrit 42.8 % (41.0-53.0); Hemoglobin 14.5 g/dL (13.5-16.0); Immature Granulocytes % (Auto) 2 % (0-0); Lymphocytes # (Auto) 1.8 Thou/mm3 (1.0-4.8); Lymphocytes % (Auto) 18 % (10-50); Mean Corpuscular HGB Conc 33.9 g/dl (31.0-37.0); Mean Corpuscular Hemoglobin 32.7 pg (25.0-35.0); Mean Corpuscular Volume 96 fL (80-100); Monocytes % (Auto) 11 % (0-12); Neutrophils # (Auto) 6.3 Thou/mm3 (1.8-7.7); Neutrophils % (Auto) 66 % (37-80); Nucleated Red Blood Cell % 0 /100 WBC (0); Platelet Count 248 Thou/mm3 (140-440); Red Blood Count 4.44 Miln/mm3 (4.50-5.90); White Blood Count 9.6 Thou/mm3 (3.8-10.6)
[2024-02-19 06:10] LABS: Glucose Estimated Average 108 mg/dL (80-131); Hemoglobin A1C 5.4 % Hgb (4.8-6.0)
[2024-02-19 06:37] LABS: Albumin, Serum 4.3 gm/dL (3.4-4.8); Anion Gap 7 (7-16); BUN/Creatinine Ratio 15 Ratio (12-20); Blood Urea Nitrogen 15 mg/dL (9-23); Calcium 9.7 mg/dL (8.3-10.6); Calcium (Corrected) 9.7 mg/dL (8.5-10.1); Carbon Dioxide 26.1 mMol/L (20.0-31.0); Cardiac Risk Estimate 3.5 RATIO (4.0-6.7); Chloride 108 mMol/L (98-107); Cholesterol 183 mg/dL (132-200); Estimated Creatinine Clearance 84.4 mL/min (>60); Free T4 (Free Thyroxine) 1.04 ng/dL (0.89-1.76); Glucose 99 mg/dL (74-106); HDL Cholesterol 53 mg/dL (40-60); LDL Cholesterol,Calculated 110 mg/dL (0-130); Magnesium 2.2 mg/dL (1.6-2.6); Osmolality,Calculated 282 (275-295); Phosphorous 3.2 mg/dL (2.4-5.1); Potassium 4.9 mMol/L (3.4-5.1); Sodium 141 mMol/L (136-145); Thyroid Stimulating Hormone 1.82 uIU/mL (0.55-4.78); Triglycerides 101 mg/dL (30-150); eGFR > 60 See Note
[2024-02-19] MEDS: ZONISAMIDE 100 MG CAPSULE 300 MG PO ×2 (09:06→21:34)
[2024-02-19] MEDS: levETIRAcetam 250 MG TABLET 1500 MG PO ×2 (09:06→21:34)
--- NOTE | 2024-02-19 09:29 | PC.SS ---
[employer] conducted bedside contact with the patient. Patient confirmed plan to transition to SNF upon discharge. No preferred SNF identified. SNF referral to be submitted.
--- NOTE | 2024-02-19 09:47 | PC.SS ---
SNF referrals submitted on [facility]. Awaiting responses.
--- NOTE | 2024-02-19 09:54 | ESPR_ITS ---
<Statement entered by Jordan Duong MD - 02/20/24 20:50> TOTAL TIME: 45MINUTES ON DIRECT MEDICAL CARE, MANAGEMENT - COORDINATION AND COUNSELING > 50% OF TOTAL TIME I saw and evaluated the patient. I reviewed the resident?s note and agree with findings and plan as documented in the resident?s note. still has left sided weakness and facial droop (ipsilateral symptoms) pending MRI once Dr. Vences deactivates neuro stimulator BP is within acceptable limits Documentation for date of: 02/19/24 Subjective Subjective Interval history: 02/18: no acute overnight events. Pt. neurological symptoms remain stable, he continues to have mild weakness in the left upper and lower extremities. Pt has mild drooping of the his left sided lips. His BP remains stable, he has no other complaints. MRI read is pending. Exam Vital Signs Temp Pulse Resp BP Pulse Ox O2 Del Method 97.2 F 61 16 150/84 H 97 Room Air 02/19/24 04:00 02/19/24 07:00 02/19/24 07:00 02/19/24 07:00 02/19/24 07:00 02/19/24 07:00 Narrative Exam GENERAL: A&Ox3 . Awake, Not in acute distress NEURO: no neurologic deficit noted HEENT: Atraumatic, Normocephalic. mucous membranes moist. Eyes open, symmetrical, & clear HEART: Normal Heart Sounds LUNGS: Clear to auscultation with no wheezing or crackles. ABDOMEN: soft, non-distended, non-tender, bowel sounds heard, no guarding or rebound tenderness SKIN: No Rash or ecchymoses EXTREMITIES: No edema, tenderness, weakness in left upper and lower extremities, pedal pulses palpated Objective Labs 02/19/24 05:22 02/19/24 05:22 Labs: Laboratory Results - last 24 hr 02/18/24 02/18/24 02/19/24 08:50 09:00 05:22 WBC 7.9 9.6 RBC 4.25 L 4.44 L Hgb 14.0 14.5 Hct 41.4 42.8 MCV 97 96 MCH 32.9 32.7 MCHC 33.8 33.9 RDW Std Deviation 47.7 H 47.0 H Plt Count 251 248 Neut % (Auto) 69 66 Lymph % (Auto) 16 18 [place] % (Auto) 11 11 Eos % (Auto) 2 2 Baso % (Auto) 1 1 Neut # (Auto) 5.4 6.3 Lymph # (Auto) 1.2 1.8 [place] # (Auto) 0.9 H 1.0 H Eos # (Auto) 0.2 0.2 Baso # (Auto) 0.0 0.1 Immature Gran # (Auto) 0.13 H 0.20 H Absolute Nucleated RBC 0.00 0.00 Immature Gran % 2 H 2 H Nucleated RBC % 0 0 Sodium 141 Potassium 4.9 D Chloride 108 H Carbon Dioxide 26.1 Anion Gap 7 BUN 15 Creatinine 1.0 Estim Creat Clear Calc 84.4 eGFR > 60 BUN/Creatinine Ratio [address] Glu mg/dL 108 Hemoglobin A1c 5.4 Calculated Osmolality 282 Calcium 9.7 Corrected Calcium 9.7 Phosphorus 3.2 Magnesium 2.2 Albumin 4.3 Triglycerides 101 Cholesterol 183 LDL Cholesterol, Calc 110 HDL Cholesterol 53 Cholesterol/HDL Ratio 3.5 L TSH 1.82 Free T4 1.04 Urine Fentanyl Screen Negative Ur Barbiturates Screen Negative ABG Interpretation ABG results: 02/18/24 08:50 VBG pH 7.32 L VBG pCO2 42 VBG pO2 81 H VBG Base Excess -4 L Quality Measures Quality Measures stroke Suspected type of Stroke: Acute Ischemic Last known well (date): 02/18/24 Last known well (time): 07:25 Tenecteplase given: within 60 min of arrival Rehab services: Speech Language Pathology eval ordered VTE Prophylaxis: not ordered Antithrombotic by day 2:: not indicated (describe) Statin ordered: not ordered Anticoagulation ordered for A-fib or flutter (current or hx): not indicated Advance care planning discussed with:: patient and spouse Assessment & Plan Assessment Current Active Medications: Generic Name Dose Route Start Last Admin Trade Name Freq PRN Reason Stop Dose Admin Acetaminophen 650 mg 02/18/24 09:19 Acetaminophen 325 Mg Tablet PO 03/19/24 09:18 Q4HR PRN PAIN SCALE 1-3 (mild Acetaminophen 650 mg 02/18/24 09:19 Acetaminophen Supp 650 Mg Supp [place] 03/19/24 09:18 Q4HR PRN PAIN SCALE 1-3 (mild Al Hydrox/Mg Hydrox/Simethicone 30 ml 02/18/24 09:19 Mg Hyd/Al Hyd/Daniel (Maalox Reg) Susp 30 Ml Udc PO 03/19/24 09:18 Q4HR PRN Heartburn or Upset Stomach Clonazepam 1 mg 02/18/24 18:44 Clonazepam 0.5 Mg Tablet PO 02/23/24 18:43 BID PRN Seizures Labetalol HCl 10 mg 02/18/24 15:48 Labetalol Inj 5 Mg/Ml Vial 20 Ml IV X1 PRN BP 180/105 and HR > 70 Levetiracetam 1,500 mg 02/18/24 21:00 02/19/24 09:06 Levetiracetam 250 Mg Tablet PO 03/19/24 20:59 1,500 mg BID GERARDO Administration Magnesium Hydroxide 30 ml 02/18/24 09:19 Milk Of Magnesia Susp 30 Ml Udc PO 03/19/24 09:18 QDAY PRN CONSTIPATION Nitroglycerin 0.4 mg 02/18/24 09:19 Nitroglycerin 0.4 Mg Subl Btl #25 SL Q5MIN PRN CHEST PAIN Ondansetron HCl 4 mg 02/18/24 07:59 Ondansetron Inj 2 Mg/Ml Inj 2 Ml IV 03/19/24 07:58 Q4HR PRN NAUSEA OR VOMITING Phenytoin 100 mg 02/18/24 22:00 02/19/24 05:07 Phenytoin 100 Mg Capsr PO 03/19/24 21:59 100 mg TID GERARDO Administration Zonisamide 300 mg 02/18/24 21:00 02/19/24 09:06 Zonisamide 100 Mg Capsule PO 03/19/24 20:59 300 mg BID GERARDO Administration Plan Mr. Mcintyre is a 68-year-old male with past medical history significant of seizure disorder (on Keppra and zonisamide) since the age of 57 years old. Patient's at bedside and contributed to the majority of the history. Pt. this morning has a seizure which according to his is very typical because he has a seizure every single day. after the seizure which lasted 30 mins.. Pt denied postictal state, pt. showered and sat down for breakfast. after a few minutes he was not able to move his left arm and also felt like his coffee was leaking from the side of his mouth on the left and felt as though his lips were swelling. Pts observed his left side of thh face was drooping. At this time, the said he did not have slurred speech but was unable to finish sentences. Pt. denied syncope, dizziness, changes to vision, nausea or vomiting. Neuro: #stroke like symptoms- resolving DDx: Acute CVA vs. evolving TIA vs todds paralysis -LKW: 6 am -NIHSS Score: 8 -pre morbid rank scale- Unable to assess -Tele neuro consulted, recommendations appreciated -Head/Neck CTA : bilateral thyroid nodules, no significant neck arterial stenosis, no cerebral large vessel arterial occlusion depicted -Head CT: negative for acute hemorrhage, mass effect or midline shift -Echo: stage 1 diastolic dysfunction with ejection fraction 55 to 60%, Negative bubble study Plan: -patient received tenecteplase 25 Mg x 1 at 8:37 AM on 02/17 - Neuro checks q4HR - Keep head of bed elevated at 30 degrees - Euglycemia and Avoid Hyperthermia (PRN Acetaminophen) -?allow permissive HTN for first 24 hours than slowly and gradually goal normotension thereafter -?MRI brain done- pending reading -No antiplatelet agents or anticoagulants (including heparin for DVT prophylaxis) in first 24 hours -Hospitalist team may consider Repeat CT brain 24 hours post thrombolytic - follow up lipid panel, HbA1c, TSH with free T4- all came back within normal limits Cardiovasc: #stage 1 diastolic dysfunction -echo done 02/17- EF 55-60% -does not appear to be in CHF exacerbation, not fluid overload -continue to monitor -outpatient follow up with cardiology Pulm: #no active problems Renal: #no active problems GI: #GI ppx - non indicated #Diet- dysphagia 3-advance Endo: #Thyroid Nodules -Head/Neck CTA-bilateral thyroid nodules -TSH (1.82) and free T4 (1.04) Heme/Onc: #DVT ppx -hospitalist team may resume Lovenox for DVT prophylaxis as it has been more than 24 hours since Infxs: #no active problems Skin/Musc #no active problems Disposition: ICU for 24 hour monitoring post tenecteplase administration DVT Prophylaxis: hospitalist team may resume Lovenox for DVT prophylaxis as it has been more than 24 hours since GI Prophylaxis: no indicated Diet: dysphagia 3-advance Code status: Full Assessment and plan discussed with my attending physician Dr. Dr. Diego (PGY-1)- Internal medicine resident
--- NOTE | 2024-02-19 09:54 | PC.SS ---
PASSR completed. Level I criteria. No PASSR follow up required.
--- NOTE | 2024-02-19 10:59 | PD.RESPRO ---
Documentation for date of: 02/19/24 Subjective Subjective Interval history: Patient received tpa yesterday at 8:37 AM. Seen and examined this AM in ICU, current NIHSS 9. Exam Vital Signs Temp Pulse Resp BP Pulse Ox O2 Del Method 98.7 F 53 L 15 130/82 99 Room Air 02/19/24 08:00 02/19/24 10:00 02/19/24 10:00 02/19/24 10:00 02/19/24 10:00 02/19/24 10:00 Narrative Exam GENERAL: Awake, alert and oriented. No acute distress. HEENT: Normocephalic, atraumatic and nontender.? Pupils are equal and reactive to light and accommodation.? Oral mucosa moist. NECK: Supple without adenopathy. [place] midline. Nontender, carotid pulse 2+ bilaterally without bruits, no JVD.? CHEST: Heart rate and rythm normal, no murmurs, gallops auscultated. S1 & 2 normal insensity. Nontender on palpation, no deformity and no crepitus. LUNGS: Lung sounds are clear.? No wheezing, rales or ronchi.? No intercostal subcostal retraction. Room air ABDOMEN: Soft,symmetric , nontender, no guarding or rebound tenderness. No abnormal masses palpated.?? Bowel sounds are normoactive in all 4 quadrants. SKIN: No rashes noted. NEURO:? 1A: Level of Consciousness - Alert; keenly responsive?+ 0 1B: Ask Month and Age - Both Questions Right?+ 0 1C: Blink Eyes & Squeeze Hands - Performs Both Tasks?+ 0 2: Test Horizontal Extraocular Movements - Normal?+ 0 3: Test Visual Noeal - No Visual Loss?+ 0 4: Test Facial Palsy (Use Grimace if Obtunded) - Minor paralysis (flat nasolabial fold, smile asymmetry)?+ 2 5A: Test Left Arm Motor Drift - No Effort Against [place]?+ 3 5B: Test Right Arm Motor Drift - No Drift for 10 Seconds?+ 0 6A: Test Left Leg Motor Drift - No effort agains gravity?+ 3 6B: Test Right Leg Motor Drift - No Drift for 5 Seconds?+ 0 7: Test Limb Ataxia (FNF/Heel-Powell) - No Ataxia?+ 0 8: Test Sensation - Normal; No sensory loss?+ 0 9: Test Language/Aphasia - Normal; No aphasia?+ 0 10: Test Dysarthria - Severe Dysarthria: Slurring but can be understood?+ 1 11: Test Extinction/Inattention - No abnormality?+ 0 NIHSS Score:?9 Objective Labs 02/20/24 04:29 02/20/24 04:29 Labs: Laboratory Results - last 24 hr 02/18/24 02/19/24 09:00 05:22 WBC 9.6 RBC 4.44 L Hgb 14.5 Hct 42.8 MCV 96 MCH 32.7 MCHC 33.9 RDW Std Deviation 47.0 H Plt Count 248 Neut % (Auto) 66 Lymph % (Auto) 18 [place] % (Auto) 11 Eos % (Auto) 2 Baso % (Auto) 1 Neut # (Auto) 6.3 Lymph # (Auto) 1.8 [place] # (Auto) 1.0 H Eos # (Auto) 0.2 Baso # (Auto) 0.1 Immature Gran # (Auto) 0.20 H Absolute Nucleated RBC 0.00 Immature Gran % 2 H Nucleated RBC % 0 Sodium 141 Potassium 4.9 D Chloride 108 H Carbon Dioxide 26.1 Anion Gap 7 BUN 15 Creatinine 1.0 Estim Creat Clear Calc 84.4 eGFR > 60 BUN/Creatinine Ratio [address] Glu mg/dL 108 Hemoglobin A1c 5.4 Calculated Osmolality 282 Calcium 9.7 Corrected Calcium 9.7 Phosphorus 3.2 Magnesium 2.2 Albumin 4.3 Triglycerides 101 Cholesterol 183 LDL Cholesterol, Calc 110 HDL Cholesterol 53 Cholesterol/HDL Ratio 3.5 L TSH 1.82 Free T4 1.04 Urine Fentanyl Screen Negative Ur Barbiturates Screen Negative ABG Interpretation ABG results: 02/18/24 08:50 VBG pH 7.32 L VBG pCO2 42 VBG pO2 81 H VBG Base Excess -4 L Quality Measures Quality Measures stroke Suspected type of Stroke: Unknown at this time Last known well (date): 02/18/24 Last known well (time): 07:25 Tenecteplase given: within 60 min of arrival Rehab services: PT evaluation ordered and Speech Language Pathology eval ordered VTE Prophylaxis: not indicated Antithrombotic by day 2:: not indicated (describe) Statin ordered: >75 y/o moderate or high intensity dose Anticoagulation ordered for A-fib or flutter (current or hx): not indicated Advance care planning discussed with:: patient Assessment & Plan Assessment Current Active Medications: Generic Name Dose Route Start Last Admin Trade Name Freq PRN Reason Stop Dose Admin Acetaminophen 650 mg 02/18/24 09:19 Acetaminophen 325 Mg Tablet PO 03/19/24 09:18 Q4HR PRN PAIN SCALE 1-3 (mild Acetaminophen 650 mg 02/18/24 09:19 Acetaminophen Supp 650 Mg Supp [place] 03/19/24 09:18 Q4HR PRN PAIN SCALE 1-3 (mild Al Hydrox/Mg Hydrox/Simethicone 30 ml 02/18/24 09:19 Mg Hyd/Al Hyd/Daniel (Maalox Reg) Susp 30 Ml Udc PO 03/19/24 09:18 Q4HR PRN Heartburn or Upset Stomach Clonazepam 1 mg 02/18/24 18:44 Clonazepam 0.5 Mg Tablet PO 02/23/24 18:43 BID PRN Seizures Labetalol HCl 10 mg 02/18/24 15:48 Labetalol Inj 5 Mg/Ml Vial 20 Ml IV X1 PRN BP 180/105 and HR > 70 Levetiracetam 1,500 mg 02/18/24 21:00 02/19/24 09:06 Levetiracetam 250 Mg Tablet PO 03/19/24 20:59 1,500 mg BID GERARDO Administration Magnesium Hydroxide 30 ml 02/18/24 09:19 Milk Of Magnesia Susp 30 Ml Udc PO 03/19/24 09:18 QDAY PRN CONSTIPATION Nitroglycerin 0.4 mg 02/18/24 09:19 Nitroglycerin 0.4 Mg Subl Btl #25 SL Q5MIN PRN CHEST PAIN Ondansetron HCl 4 mg 02/18/24 07:59 Ondansetron Inj 2 Mg/Ml Inj 2 Ml IV 03/19/24 07:58 Q4HR PRN NAUSEA OR VOMITING Phenytoin 100 mg 02/18/24 22:00 02/19/24 05:07 Phenytoin 100 Mg Capsr PO 03/19/24 21:59 100 mg TID GERARDO Administration Zonisamide 300 mg 02/18/24 21:00 02/19/24 09:06 Zonisamide 100 Mg Capsule PO 03/19/24 20:59 300 mg BID GERARDO Administration Plan 68-year-old male with past medical history significant of seizure disorder (on Keppra and zonisamide). Patient had a seizure the morning of admission which lasted 30 mins, denied postictal state, showered and sat down for breakfast after a few minutes he was not able to move his left arm and also felt like his coffee was leaking from the side of his mouth. Patient presented to the ED and received tpa at 8:37, admitted to ICU for observation #Acute CVA -Initial NIHSS score 8 -Initial CT no hemorrhage, no midline shift. -Teleneuro consulted, TPA given at 8:37 -Current NIHSS 9 -Follow up MRI -Can start Plavix today after MRI rules out bleeding Patient's care discussed with attending physician, Dr Vangie Tubbs MD PGY3 Attending Provider Attestation/Addendum I personally have seen and examined the patient at the bedside and agree with resident findings, assessment and plan of care. Continue with aspirin, Plavix and statin. Reassurance given to the patient and family regarding the acute stroke involving the right basal ganglia. His left hemiparesis including the face arm and leg should improve with time gradually with the inpatient rehab. Continue to monitor him closely for breakthrough seizures on current AEDs.
--- NOTE | 2024-02-19 13:44 | PC.PT ---
PT Eval completed. Patient will benefit for an acute rehab placement.
--- NOTE | 2024-02-19 15:08 | XR_ITS ---
Examination: CT brain head without contrast. 2-D sagittal coronal reconstructions Date and time of exam:February 19, 2024 1803 hrs. Comparison February 18, 2024 Indications: History stroke alert, 24 hours post TPA CTDI: vol (mGy):51.9 DLP: (mGycm):1155 Technique: Multiple CT axial sections of the brain have been obtained, 5 mm slice thickness. Contrast has not been administered. 2-D sagittal, coronal reconstructions have been obtained Low dose protocols were performed. One or more of the following dose reduction techniques were used; automated exposure control, adjustment of the mA and/or KV according to patient size, use of iterative reconstruction technique. Findings: No significant ventricular enlargement. Acute nonhemorrhagic infarct right caudate nucleus Intra-axial or extra-axial hemorrhage density is not seen. No mass effect or midline shift Basal cisterns are not remarkable. Fourth ventricle is midline. Cranial vault intact. Impression: Acute nonhemorrhagic infarct right caudate nucleus No hemorrhagic transformation
[2024-02-19] MEDS: LIDOCAINE 5% 1 PATCH TOP (15:20)
--- NOTE | 2024-02-19 15:35 | PD.RESEVENT ---
Documentation for date of: 02/19/24 Event Note Event Note: Mr. Mcintyre is a 68-year-old male with past medical history significant of seizure disorder (on Keppra and zonisamide) since the age of 57 years old presented to the ED after episode of weakness of left arm. Patient has daily seizures in the mornings but he had new symptoms of left arm weakness. Patient was given TNK at 8:37 AM 02/17 and observed in the ICU. CT/CTA/echo negative for stroke workup and MRI pending. Seizure meds were resumed and diet started dysphagia 3. Patient is comfortable and vital signs are stable. Dr. Vences, neurologist is following. We will assume care starting tomorrow 02/20/2024 at 0700 The patient's plan was discussed with attending Dr. Baker and senior residents Dr. Mandy Monge, DO PGY1 Internal Medicine
--- NOTE | 2024-02-19 21:06 | PC.NURSE ---
Called warehouse assistant to bring Zonisamide 300 mg.
[2024-02-20] VITALS (9 sets, daily range): BP systolic 123–148; BP diastolic 73–89; PULSE 60–80; RESP 16–96; TEMP 36–36.6; O2SAT 96–98; BMI 35.1
[2024-02-20 05:21] LABS: Basophils # (Auto) 0.1 Thou/mm3 (0.0-0.2); Basophils % (Auto) 1 % (0-2.5); Eosinophils # (Auto) 0.2 Thou/mm3 (0.0-0.5); Eosinophils % (Auto) 2 % (0-10); Hematocrit 44.5 % (41.0-53.0); Hemoglobin 15.1 g/dL (13.5-16.0); Immature Granulocytes % (Auto) 3 % (0-0); Immature Granulocytes Auto 0.26 Thou/mm3 (0.00-0.00); Lymphocytes # (Auto) 1.6 Thou/mm3 (1.0-4.8); Lymphocytes % (Auto) 15 % (10-50); Mean Corpuscular HGB Conc 33.9 g/dl (31.0-37.0); Mean Corpuscular Volume 94 fL (80-100); Monocytes % (Auto) 10 % (0-12); Neutrophils % (Auto) 70 % (37-80); Nucleated Red Blood Cell % 0 /100 WBC (0); Platelet Count 274 Thou/mm3 (140-440); RDW Standard Deviation 46.3 fL (35.1-43.9); Red Blood Count 4.72 Miln/mm3 (4.50-5.90); White Blood Count 10.1 Thou/mm3 (3.8-10.6)
[2024-02-20] MEDS: PHENYTOIN 100 MG CAPSR PO ×3 (05:37→21:14)
[2024-02-20 06:02] LABS: Albumin, Serum 4.5 gm/dL (3.4-4.8); Anion Gap 8 (7-16); BUN/Creatinine Ratio 18 Ratio (12-20); Blood Urea Nitrogen 18 mg/dL (9-23); Calcium 9.6 mg/dL (8.3-10.6); Calcium (Corrected) 9.6 mg/dL (8.5-10.1); Carbon Dioxide 24.1 mMol/L (20.0-31.0); Chloride 107 mMol/L (98-107); Estimated Creatinine Clearance 84.4 mL/min (>60); Glucose 95 mg/dL (74-106); Osmolality,Calculated 279 (275-295); Phosphorous 3.4 mg/dL (2.4-5.1); Potassium 3.9 mMol/L (3.4-5.1); Sodium 139 mMol/L (136-145); eGFR > 60 See Note
[2024-02-20] MEDS: levETIRAcetam 250 MG TABLET 1500 MG PO ×2 (09:15→21:14)
[2024-02-20] MEDS: CLOPIDOGREL BISULFATE 75 MG TABLET PO (09:16)
--- NOTE | 2024-02-20 09:23 | ESPR_ITS ---
Documentation for date of: 02/20/24 Subjective Subjective Interval history: Patient reports 2 seizures overnight. States that they last about 25 to 30 minutes. Patient was twitching of his upper extremities and would say 4 letter words. His eyes rolled back. Witnessed by spouse. She states that these are common for him and happen daily. States that at home when these happen she does not usually give as needed clonazepam because it does not make much of a difference. He states that his weakness on his left side is about the same as yesterday. His says that his slurred speech sometimes worse sometimes better throughout the day. He denies chest pain or shortness of breath, visual changes or headache. Exam Vital Signs Temp Pulse Resp BP Pulse Ox O2 Del Method 96.8 F 60 18 146/88 H 98 Room Air 02/20/24 08:00 02/20/24 08:00 02/20/24 08:00 02/20/24 08:00 02/20/24 08:00 02/20/24 08:00 Narrative Exam General: Well appearing, well nourished, in no distress. HEENT: Normocephalic, atraumatic, conjunctiva clear, sclera non-icteric, EOM intact, left facial droop Heart: Regular rate and rhythm, no murmur or gallop Lungs: Clear to auscultation, no wheezing Abdomen: Soft, nondistended, nontender Extremities: No amputations or deformities, cyanosis, edema or varicosities, peripheral pulses intact Neurologic: NIHSS 7 for left arm no effort against gravity and left leg some effort against gravity, left facial droop Psychiatric: Cooperative, normal mood and affect. Objective Labs 02/20/24 04:29 02/21/24 05:20 Labs: Laboratory Results - last 24 hr 02/20/24 04:29 WBC 10.1 RBC 4.72 Hgb 15.1 Hct 44.5 MCV 94 MCH 32.0 MCHC 33.9 RDW Std Deviation 46.3 H Plt Count 274 Neut % (Auto) 70 Lymph % (Auto) 15 [place] % (Auto) 10 Eos % (Auto) 2 Baso % (Auto) 1 Neut # (Auto) 7.0 Lymph # (Auto) 1.6 [place] # (Auto) 1.0 H Eos # (Auto) 0.2 Baso # (Auto) 0.1 Immature Gran # (Auto) 0.26 H Absolute Nucleated RBC 0.00 Immature Gran % 3 H Nucleated RBC % 0 Sodium 139 Potassium 3.9 D Chloride 107 Carbon Dioxide 24.1 Anion Gap 8 BUN 18 Creatinine 1.0 Estim Creat Clear Calc 84.4 eGFR > 60 BUN/Creatinine Ratio 18 Glucose 95 Calculated Osmolality 279 Calcium 9.6 Corrected Calcium 9.6 Phosphorus 3.4 Albumin 4.5 ABG Interpretation ABG results: 02/18/24 08:50 VBG pH 7.32 L VBG pCO2 42 VBG pO2 81 H VBG Base Excess -4 L Quality Measures Quality Measures stroke Suspected type of Stroke: Acute Ischemic Last known well (date): 02/18/24 Last known well (time): 07:25 Tenecteplase given: within 60 min of arrival Rehab services: PT evaluation ordered and Speech Language Pathology eval ordered VTE Prophylaxis: mechanical Antithrombotic by day 2:: ordered Statin ordered: >75 y/o moderate or high intensity dose Anticoagulation ordered for A-fib or flutter (current or hx): not indicated Advance care planning discussed with:: patient and spouse Assessment & Plan Assessment Current Active Medications: Generic Name Dose Route Start Last Admin Trade Name Freq PRN Reason Stop Dose Admin Acetaminophen 650 mg 02/18/24 09:19 Acetaminophen 325 Mg Tablet PO 03/19/24 09:18 Q4HR PRN PAIN SCALE 1-3 (mild Acetaminophen 650 mg 02/18/24 09:19 Acetaminophen Supp 650 Mg Supp [place] 03/19/24 09:18 Q4HR PRN PAIN SCALE 1-3 (mild Al Hydrox/Mg Hydrox/Simethicone 30 ml 02/18/24 09:19 Mg Hyd/Al Hyd/Daniel (Maalox Reg) Susp 30 Ml Udc PO 03/19/24 09:18 Q4HR PRN Heartburn or Upset Stomach Clonazepam 1 mg 02/18/24 18:44 Clonazepam 0.5 Mg Tablet PO 02/23/24 18:43 BID PRN Seizures Clopidogrel Bisulfate 75 mg 02/20/24 09:00 02/20/24 09:16 Clopidogrel Bisulfate 75 Mg Tablet PO 03/21/24 08:59 75 mg QDAY GERARDO Administration Labetalol HCl 10 mg 02/18/24 15:48 Labetalol Inj 5 Mg/Ml Vial 20 Ml IV X1 PRN BP 180/105 and HR > 70 Levetiracetam 1,500 mg 02/18/24 21:00 02/20/24 09:15 Levetiracetam 250 Mg Tablet PO 03/19/24 20:59 1,500 mg BID GERARDO Administration Magnesium Hydroxide 30 ml 02/18/24 09:19 Milk Of Magnesia Susp 30 Ml Udc PO 03/19/24 09:18 QDAY PRN CONSTIPATION Nitroglycerin 0.4 mg 02/18/24 09:19 Nitroglycerin 0.4 Mg Subl Btl #25 SL Q5MIN PRN CHEST PAIN Ondansetron HCl 4 mg 02/18/24 07:59 Ondansetron Inj 2 Mg/Ml Inj 2 Ml IV 03/19/24 07:58 Q4HR PRN NAUSEA OR VOMITING Phenytoin 100 mg 02/18/24 22:00 02/20/24 05:37 Phenytoin 100 Mg Capsr PO 03/19/24 21:59 100 mg TID GERARDO Administration Zonisamide 300 mg 02/18/24 21:00 02/19/24 21:34 Zonisamide 100 Mg Capsule PO 03/19/24 20:59 300 mg BID GERARDO Administration Plan Mr. Mcintyre is a 68-year-old male with past medical history significant of seizure disorder (on Keppra and zonisamide) since the age of 57 years old. Patient was admitted for CVA workup. MRI showed acute infarct of right caudate nucleus. Patient was admitted for further workup and SNF placement. #Acute CVA #25mm acute infarct right caudate nucleus LKW: 6 am 02/17 NIHSS Score: 8 Tele neuro consulted, recommendations appreciated Head/Neck CTA : bilateral thyroid nodules, no significant neck arterial stenosis, no cerebral large vessel arterial occlusion depicted Head CT: negative for acute hemorrhage, mass effect or midline shift-> repeat 24 hours after TNK negative for hemorrhagic conversion Echo: stage 1 diastolic dysfunction with ejection fraction 55 to 60%, Negative bubble study MRI showed 25mm acute infarct right caudate nucleus patient received tenecteplase 25 Mg x 1 at 8:37 AM on 02/17 Plan: - Neuro checks q4HR - Keep head of bed elevated at 30 degrees - Euglycemia, normotension and Avoid Hyperthermia (PRN Acetaminophen) - Plavix 75mg #Seizures Hx of gran Mal/partial seizures since 7 years old Reports daily seizures Dr. Vences is his Neurologist Patient reports 2 seizures overnight and also to during the day today. Patient's notified nurse 20 minutes since his seizures and by the time physician arrived patient was already coming out of seizure. We will give as needed Klonopin 3 times daily scheduled to see if this improves symptoms. Will follow-up with neurologist -Renee precautions -Keppra 1500mg BID -Phenytoin 100mg PO TID -Zonisamide 300mg PO BID -Clonazepam PO 0.5mg TID GERARDO #HFpEF stage 1 diastolic dysfunction echo done 02/17- EF 55-60% does not appear to be in CHF exacerbation, not fluid overload -continue to monitor -outpatient follow up with cardiology #Thyroid Nodules Head/Neck CTA-bilateral thyroid nodules, largest on the right 15mm TSH (1.82) and free T4 (1.04) -Follow up outpatient Disposition:Telemetry DVT Prophylaxis: SCDs GI Prophylaxis: not indicated Diet: dysphagia 3-advance Code status: Full The patient's plan was discussed with attending Dr. Baker and senior resident Dr. Mandy Monge, DO PGY1 Internal Medicine Senior resident attestation: Patient evaluated and examined at the bedside, plan of care discussed with rest of the team including my attending physician, except as noted. The patient is a 68-year-old male with past medical history significant of seizure disorder (on Keppra and zonisamide) since the age of 57 years old presented to the ED after episode of weakness of left arm. Patient has daily seizures in the mornings but he had new symptoms of left arm weakness. Patient was given TNK at 8:37 AM 02/17 and observed in the ICU. CT/CTA/echo negative for stroke workup and MRI pending. Seizure meds were resumed and diet started dysphagia 3. Patient is comfortable and vital signs are stable. Dr. Vences, neurologist is following. #Acute CVA s/p tPA Acute ischemic CVA cardiac lobe, status post tenecteplase, neurology following, recommended dual antiplatelet medications, started on aspirin and Plavix. Started high intensity statin atorvastatin 80 mg daily. #History of epilepsy #Partial seizures #Myoclonic jerks Patient has a history of epilepsy since childhood, currently on 3 antiseizure medications, levetiracetam, zonisamide and phenytoin. Patient has repeated episodes of myoclonic jerks patient is awake throughout the episode which last 15 to 20 minutes, but feels exhausted after, reports no loss of consciousness or altered mental status. Myoclonic jerking movements localized to the right upper extremity and face. is present at the bedside, who reported patient has these episodes multiple times a day at his baseline. Less likely petit mal seizures, likely myoclonic jerks. Patient has as needed p.o. Klonopin ordered, but is unable to get it in time to terminate the episode. Will schedule Klonopin 0.5 mg 3 times daily for migraine chills. Continue with antiepileptic medications. Quresh PGY2 Attending Provider Attestation/Addendum I have examined the patient, reviewed labs and imaging findings, discussed the case with the resident(s), and reviewed entered orders. I agree with the plan of care as outlined in this note, with these additional summaries/recommendations: Patient seen at bedside. Patient was downgraded overnight from the ICU. Patient presented with acute onset left-sided weakness involving the face, upper and lower extremity with considerable dysarthria. Dysarthria has significantly improved although facial droop and left-sided weakness persists. Patient did receive IV tenecteplase in the ICU. MRI revealed 25 mm acute infract right caudate nucleus. Echocardiogram showed negative bubble study with EF 55 to 60%. Continue Plavix and atorvastatin 80 mg p.o. at bedtime. Swallow evaluation completed and on dysphagia 3 diet. Patient was evaluated by physical therapy. In-house neurology consulted and recommendations appreciated on starting aspirin. Patient has a lengthy history of seizure disorder since childhood and we will continue home antiepileptic regimen Keppra 1500 mg twice daily, phenytoin 100 mg 3 times daily, and zonisamide 300 mg twice daily. Patient has multiple seizures throughout the day which is his baseline. He reportedly does not lose consciousness during seizures and has generalized shaking. Appreciate neuro recs on antiepileptic regimen. Continue strict blood pressure control for CVA. Patient and updated at bedside. Repeat hematology and chemistry panel in AM. Dr. Baker
[2024-02-20] MEDS: ZONISAMIDE 100 MG CAPSULE 300 MG PO ×2 (10:25→20:17)
[2024-02-20] MEDS: ATORVASTATIN CALCIUM 20 MG TABLET 80 MG PO (13:42)
--- NOTE | 2024-02-20 14:20 | PC.SS ---
SS follow up note; SS spoke to patient's , Diane in regards to SNF choice, First choice is [facility] due to private room. SS contacted Opal and informed her that patient would be discharging tomorrow after his 3 Midnights. SS will stand by for further needs.
--- NOTE | 2024-02-20 15:06 | PC.SS ---
SS follow up note; [facility]SR sent via Fax to [facility].
[2024-02-20] MEDS: ASPIRIN EC 81 MG TABEC PO (18:06)
[2024-02-20] MEDS: LORazepam 2 MG/ML VIAL IVP (20:22)
[2024-02-20] MEDS: clonazePAM 0.5 MG TABLET PO (21:14)
--- NOTE | 2024-02-20 21:24 | PD.NEUROPROG ---
Documentation for date of: 02/20/24 Subjective Subjective Interval history: Patient was seen in [facility] today with his at the bedside. Continues to have left hemiparesis affecting the face arm and leg. He did have 2 seizures today with postictal state. Exam - Neurology Vital Signs Temp Pulse Resp BP Pulse Ox O2 Del Method 97.9 F 71 17 129/87 H 96 Room Air 02/20/24 21:00 02/20/24 21:00 02/20/24 21:00 02/20/24 21:00 02/20/24 21:00 02/20/24 21:00 Narrative Exam GENERAL APPEARANCE: Well-developed, obese built white male in no acute distress. HEENT: Normocephalic, atraumatic, extraocular movements intact. Pupils: Equal reacting to light NECK: Supple, no JVD or bruits. CARDIOVASULAR: Heart: S1, S2 heard, regular without S3-S4 or murmur no rubs or gallops. LUNGS/CHEST: Clear to auscultation bilaterally. No rails, rhonchi, or wheezing. Normal inspection. ABDOMEN: Soft, nontender, with normal bowel sounds. No pulsatile masses. No rebound, rigidity, or guarding. Normal inspection and palpation. EXTREMITIES: Normal inspection and palpation. No edema, clubbing or cyanosis. SKIN: Warm and dry without rashes. Normal inspection. MUSCULOSKELETAL: No cervical, thoracic, lumbar or midline bony tenderness. Normal inspection. NEURO: Alert, awake and oriented x3. Cranial nerves: II through XII grossly intact with exception of left facial weakness of the neuron.. Speech and language: Mild dysarthria. Motor system: Tone and bulk: Normal: Strength: Left hemiparesis affecting the distal more than the proximal, pronator drift on the left. Deep tendon reflexes: 2+ bilaterally symmetrical. Plantar reflex: Downgoing bilaterally. Sensory system: Impaired to all modalities of sensation on the left rest of the exam: Limited. no signs of meningeal irritation noted. PSYCHIATRIC: Seems depressed and kind of irritable Objective Labs 02/20/24 04:29 02/20/24 04:29 Labs: Laboratory Results - last 24 hr 02/20/24 04:29 WBC 10.1 RBC 4.72 Hgb 15.1 Hct 44.5 MCV 94 MCH 32.0 MCHC 33.9 RDW Std Deviation 46.3 H Plt Count 274 Neut % (Auto) 70 Lymph % (Auto) 15 [place] % (Auto) 10 Eos % (Auto) 2 Baso % (Auto) 1 Neut # (Auto) 7.0 Lymph # (Auto) 1.6 [place] # (Auto) 1.0 H Eos # (Auto) 0.2 Baso # (Auto) 0.1 Immature Gran # (Auto) 0.26 H Absolute Nucleated RBC 0.00 Immature Gran % 3 H Nucleated RBC % 0 Sodium 139 Potassium 3.9 D Chloride 107 Carbon Dioxide 24.1 Anion Gap 8 BUN 18 Creatinine 1.0 Estim Creat Clear Calc 84.4 eGFR > 60 BUN/Creatinine Ratio 18 Glucose 95 Calculated Osmolality 279 Calcium 9.6 Corrected Calcium 9.6 Phosphorus 3.4 Albumin 4.5 ABG Interpretation ABG results: 02/18/24 08:50 VBG pH 7.32 L VBG pCO2 42 VBG pO2 81 H VBG Base Excess -4 L Assessment & Plan Additional Assessment & Plan Additional Plan: 68-year-old male with past medical history significant of seizure disorder (on Keppra and zonisamide). Patient had a seizure the morning of admission which lasted 30 mins, denied postictal state, showered and sat down for breakfast after a few minutes he was not able to move his left arm and also felt like his coffee was leaking from the side of his mouth. Patient presented to the ED and received tpa at 8:37, admitted to ICU for observation #Acute CVA -Initial NIHSS score 8 -Initial CT no hemorrhage, no midline shift. -Teleneuro consulted, TPA given at 8:37 -Current NIHSS 9 -MRI brain showed acute infarction involving the right basal ganglia. Continue with aspirin, Plavix and statin. Continue with physical therapy. He would need inpatient rehab. # Intractable epilepsy with multiple AEDs on board and nonfunctioning VNS -Continue with the current AEDs, follow seizure precautions and continue with Ativan as needed for breakthrough seizures.
--- NOTE | 2024-02-20 22:15 | PC.NURSE ---
1950 pt noted to have seizure that lasted 4 minutes long, notified new order for Ativan administered. Safety reviewed with at bedside. Side rails padded suction at bedside.
[2024-02-21] VITALS (7 sets, daily range): BP systolic 118–143; BP diastolic 72–86; PULSE 60–82; RESP 17–94; TEMP 35.9–36.2; O2SAT 91–96
[2024-02-21] MEDS: PHENYTOIN 100 MG CAPSR PO ×3 (05:17→21:05)
[2024-02-21] MEDS: clonazePAM 0.5 MG TABLET PO ×3 (05:17→21:05)
[2024-02-21 06:30] LABS: Albumin, Serum 4.7 gm/dL (3.4-4.8); Anion Gap 11 (7-16); BUN/Creatinine Ratio 21 Ratio (12-20); Blood Urea Nitrogen 21 mg/dL (9-23); Carbon Dioxide 21.1 mMol/L (20.0-31.0); Chloride 106 mMol/L (98-107); Estimated Creatinine Clearance 85.3 mL/min (>60); Glucose 104 mg/dL (74-106); Osmolality,Calculated 278 (275-295); Phosphorous 3.5 mg/dL (2.4-5.1); Potassium 4.3 mMol/L (3.4-5.1); Sodium 138 mMol/L (136-145); eGFR > 60 See Note
[2024-02-21 07:59] LABS: Basophils # (Auto) 0.1 Thou/mm3 (0.0-0.2); Basophils % (Auto) 1 % (0-2.5); Eosinophils # (Auto) 0.2 Thou/mm3 (0.0-0.5); Eosinophils % (Auto) 2 % (0-10); Hematocrit 46.8 % (41.0-53.0); Hemoglobin 15.6 g/dL (13.5-16.0); Immature Granulocytes % (Auto) 3 % (0-0); Immature Granulocytes Auto 0.28 Thou/mm3 (0.00-0.00); Lymphocytes # (Auto) 1.4 Thou/mm3 (1.0-4.8); Lymphocytes % (Auto) 12 % (10-50); Mean Corpuscular HGB Conc 33.3 g/dl (31.0-37.0); Mean Corpuscular Volume 96 fL (80-100); Monocytes # (Auto) 0.9 Thou/mm3 (0.0-0.8); Monocytes % (Auto) 8 % (0-12); Neutrophils # (Auto) 8.4 Thou/mm3 (1.8-7.7); Neutrophils % (Auto) 75 % (37-80); Nucleated Red Blood Cell % 0 /100 WBC (0); Platelet Count 241 Thou/mm3 (140-440); RDW Standard Deviation 46.2 fL (35.1-43.9); Red Blood Count 4.88 Miln/mm3 (4.50-5.90); White Blood Count 11.2 Thou/mm3 (3.8-10.6)
[2024-02-21] MEDS: ZONISAMIDE 100 MG CAPSULE 300 MG PO ×2 (09:12→21:07)
[2024-02-21] MEDS: levETIRAcetam 250 MG TABLET 1500 MG PO ×2 (09:14→21:05)
[2024-02-21] MEDS: ATORVASTATIN CALCIUM 20 MG TABLET 80 MG PO (09:14)
[2024-02-21] MEDS: ASPIRIN EC 81 MG TABEC PO (09:14)
[2024-02-21] MEDS: CLOPIDOGREL BISULFATE 75 MG TABLET PO (09:14)
[2024-02-21] MEDS: Milk Of Magnesia Susp 30 ML UDC PO (09:48)
[2024-02-21 11:36] LABS: Lactate (Lactic Acid) 1.5 mMol/L (0.4-2.0)
[2024-02-21 11:54] LABS: Creatine Kinase 262 U/L (34-171)
--- NOTE | 2024-02-21 12:42 | ESPR_ITS ---
Documentation for date of: 02/21/24 Subjective Subjective Interval history: Patient seen today at the bedside fine awake, alert, oriented x 3. Overnight patient had a seizure for which Ativan was given. Left-sided deficits improving at this time. Vital signs stable at this time, labs unremarkable. CK was ordered due to seizure activity was found slightly elevated however patients baseline is 1-2 seizures every day. Spoke to neurology Dr Vences recommends no need to change seizure medications and continue to monitor. Anticipate discharge in the next 24-48 hours. Exam Vital Signs Temp Pulse Resp BP Pulse Ox O2 Del Method 96.6 F L 78 18 143/84 H 96 Room Air 02/21/24 07:30 02/21/24 07:35 02/21/24 07:35 02/21/24 07:30 02/21/24 07:30 02/21/24 07:30 Narrative Exam Physical Exam GENERAL: NAD, AAOx3 HEENT: Moist mucosa. Eyes open, symmetrical, & clear, able to raise eyebrows symmetrically, no symmetrical smile CARDIO: Heart RRR, no obvious murmurs PULM: No noted coughing/dyspnea CTA B/L, no R/W/R GI: Abdomen soft, nondistended, no pain on palpation. BSx4 SKIN/MSK/EXT: No wounds/rashes/edema/amputations, no pain on palpation. Pedal pulses present B/L NEURO: AAOx3, continues with left upper extremity and left lower extremity weakness although improving, speech has improved Objective Labs 02/21/24 06:50 02/21/24 05:20 Labs: Laboratory Results - last 24 hr 02/21/24 02/21/24 02/21/24 05:20 06:50 11:18 WBC 11.2 H RBC 4.88 Hgb 15.6 Hct 46.8 MCV 96 MCH 32.0 MCHC 33.3 RDW Std Deviation 46.2 H Plt Count 241 D Neut % (Auto) 75 Lymph % (Auto) 12 [place] % (Auto) 8 Eos % (Auto) 2 Baso % (Auto) 1 Neut # (Auto) 8.4 H Lymph # (Auto) 1.4 [place] # (Auto) 0.9 H Eos # (Auto) 0.2 Baso # (Auto) 0.1 Immature Gran # (Auto) 0.28 H Absolute Nucleated RBC 0.00 Immature Gran % 3 H Nucleated RBC % 0 Sodium 138 Potassium 4.3 Chloride 106 Carbon Dioxide 21.1 Anion Gap 11 BUN 21 Creatinine 1.0 Estim Creat Clear Calc 85.3 eGFR > 60 BUN/Creatinine Ratio 21 H Glucose 104 Calculated Osmolality 278 Lactic Acid 1.5 Calcium 10.0 Corrected Calcium 10.0 Phosphorus 3.5 Total Creatine Kinase 262 H Albumin 4.7 ABG Interpretation ABG results: 02/18/24 08:50 VBG pH 7.32 L VBG pCO2 42 VBG pO2 81 H VBG Base Excess -4 L Quality Measures Quality Measures stroke Suspected type of Stroke: Acute Ischemic Last known well (date): 02/18/24 Last known well (time): 07:25 Tenecteplase given: within 60 min of arrival Rehab services: PT evaluation ordered VTE Prophylaxis: not indicated Antithrombotic by day 2:: ordered Statin ordered: >75 y/o moderate or high intensity dose Anticoagulation ordered for A-fib or flutter (current or hx): not indicated Advance care planning discussed with:: patient and spouse Assessment & Plan Assessment Current Active Medications: Generic Name Dose Route Start Last Admin Trade Name Freq PRN Reason Stop Dose Admin Acetaminophen 650 mg 02/18/24 09:19 Acetaminophen 325 Mg Tablet PO 03/19/24 09:18 Q4HR PRN PAIN SCALE 1-3 (mild Acetaminophen 650 mg 02/18/24 09:19 Acetaminophen Supp 650 Mg Supp LA 03/19/24 09:18 Q4HR PRN PAIN SCALE 1-3 (mild Al Hydrox/Mg Hydrox/Simethicone 30 ml 02/18/24 09:19 Mg Hyd/Al Hyd/Daniel (Maalox Reg) Susp 30 Ml Udc PO 03/19/24 09:18 Q4HR PRN Heartburn or Upset Stomach Aspirin 81 mg 02/20/24 17:45 02/21/24 09:14 Aspirin Ec 81 Mg Tabec PO 03/21/24 17:44 81 mg QDAY GERARDO Administration Atorvastatin Calcium 80 mg 02/21/24 09:00 02/21/24 09:14 Atorvastatin Calcium 20 Mg Tablet PO 03/22/24 08:59 80 mg QAM GERARDO Administration Clonazepam 0.5 mg 02/20/24 22:00 02/21/24 05:17 Clonazepam 0.5 Mg Tablet PO 02/25/24 21:59 0.5 mg TID GERARDO Administration Clopidogrel Bisulfate 75 mg 02/20/24 09:00 02/21/24 09:14 Clopidogrel Bisulfate 75 Mg Tablet PO 03/21/24 08:59 75 mg QDAY GERARDO Administration Labetalol HCl 10 mg 02/18/24 15:48 Labetalol Inj 5 Mg/Ml Vial 20 Ml IV X1 PRN BP 180/105 and HR > 70 Levetiracetam 1,500 mg 02/18/24 21:00 02/21/24 09:14 Levetiracetam 250 Mg Tablet PO 03/19/24 20:59 1,500 mg BID GERARDO Administration Lorazepam 2 mg 02/20/24 20:16 02/20/24 20:22 Lorazepam 2 Mg/Ml Vial IVP 2 mg Q30M PRN Administration Seizure lasting >1min Magnesium Hydroxide 30 ml 02/18/24 09:19 02/21/24 09:48 Milk Of Magnesia Susp 30 Ml Udc PO 03/19/24 09:18 30 ml QDAY PRN Administration CONSTIPATION Nitroglycerin 0.4 mg 02/18/24 09:19 Nitroglycerin 0.4 Mg Subl Btl #25 SL Q5MIN PRN CHEST PAIN Ondansetron HCl 4 mg 02/18/24 07:59 Ondansetron Inj 2 Mg/Ml Inj 2 Ml IV 03/19/24 07:58 Q4HR PRN NAUSEA OR VOMITING Phenytoin 100 mg 02/18/24 22:00 02/21/24 05:17 Phenytoin 100 Mg Capsr PO 03/19/24 21:59 100 mg TID GERARDO Administration Zonisamide 300 mg 02/18/24 21:00 02/21/24 09:12 Zonisamide 100 Mg Capsule PO 03/19/24 20:59 300 mg BID GERARDO Administration Plan 68-year-old male with past medical history significant of seizure disorder (on Keppra and zonisamide) since the age of 57 years old. Patient was admitted for CVA workup. MRI showed acute infarct of right caudate nucleus. Patient was admitted for further workup and SNF placement. #Acute CVA #25mm acute infarct right caudate nucleus LKW: 6 am 02/17, NIHSS Score: 8, received tenecteplase 25 Mg x 1 at 8:37 AM on 02/17 Tele neuro consulted, recommendations appreciated Head/Neck CTA : bilateral thyroid nodules, no significant neck arterial stenosis, no cerebral large vessel arterial occlusion depicted Head CT: negative for acute hemorrhage, mass effect or midline shift-> repeat 24 hours after TNK negative for hemorrhagic conversion Echo: stage 1 diastolic dysfunction with ejection fraction 55 to 60%, Negative bubble study MRI showed 25mm acute infarct right caudate nucleus -Neuro checks q4HR -HOB more than 30 degrees -Euglycemia, normotension and Avoid Hyperthermia (PRN Acetaminophen) -Plavix 75mg -Aspirin 81 mg -Atorvastatin 80 mg daily #Seizures Hx of gran Mal/partial seizures since 7 years old Reports daily seizures, sees Dr. Vences, neurology We will give as needed Klonopin 3 times daily scheduled to see if this improves symptoms. Will follow-up with neurologist -Seizure precautions -Keppra 1500mg BID -Phenytoin 100mg PO TID -Zonisamide 300mg PO BID -Clonazepam PO 0.5mg TID [facility] -Neurology consulted, appreciate recommendations #HFpEF stage 1 diastolic dysfunction echo done 02/17- EF 55-60% does not appear to be in CHF exacerbation, not fluid overload -continue to monitor -outpatient follow up with cardiology #Thyroid Nodules Head/Neck CTA-bilateral thyroid nodules, largest on the right 15mm TSH (1.82) and free T4 (1.04) -Follow up outpatient Case discussed with my senior Dr. Galvan PGY-[address] Olivia Pantoja MD PGY-1 Disposition:Telemetry DVT Prophylaxis: SCDs GI Prophylaxis: not indicated Diet: dysphagia 3-advance Code status: Full code Senior resident attestation: Patient evaluated and examined at the bedside, plan of care discussed with rest of the team including my attending physician, except as noted. The patient is a 68-year-old male with past medical history significant of seizure disorder (on Keppra and zonisamide) since the age of 57 years old presented to the ED after episode of weakness of left arm. Patient has daily seizures in the mornings but he had new symptoms of left arm weakness. Patient was given TNK at 8:37 AM 02/17 and observed in the ICU. CT/CTA/echo negative for stroke workup and MRI pending. Seizure meds were resumed and diet started dysphagia 3. Patient is comfortable and vital signs are stable. Dr. Vences, neurologist is following. #Acute CVA s/p tPA Acute ischemic CVA cardiac lobe, status post tenecteplase, neurology following, recommended dual antiplatelet medications, started on aspirin and Plavix. Started high intensity statin atorvastatin 80 mg daily. #Myoclonic jerks #History of epilepsy #Partial seizures Patient has a history of epilepsy since childhood, currently on 3 antiseizure medications, levetiracetam, zonisamide and phenytoin. Patient has repeated episodes of myoclonic jerks patient is awake throughout the episode which last 15 to 20 minutes, but feels exhausted after, reports no loss of consciousness or altered mental status. Myoclonic jerking movements localized to the right upper extremity and face. is present at the bedside, who reported patient has these episodes multiple times a day at his baseline. Less likely petit mal seizures, likely myoclonic jerks. Patient has as needed p.o. Klonopin ordered, but is unable to get it in time to terminate the episode. Will schedule Klonopin 0.5 mg 3 times daily for myoclonic jerks. Continue with antiepileptic medications. ?Spoke to neurologist Dr Vences regarding seizures/myoclonic jerking, recommended continuing monitoring. No change in antiseizure medications. ?As needed Ativan added for seizures Quresh PGY2 Attending Provider Attestation/Addendum I have examined the patient, reviewed labs and imaging findings, discussed the case with the resident(s), and reviewed entered orders. I agree with the plan of care as outlined in this note, with these additional summaries/recommendations: Patient seen at bedside. Overnight patient had a seizure episode requiring IV Ativan. Patient presented with acute onset left-sided weakness involving the face, upper and lower extremity with considerable dysarthria. Dysarthria has significantly improved although facial droop and left-sided weakness persists. Patient did receive IV tenecteplase in the ICU. MRI revealed 25 mm acute infract right caudate nucleus. Echocardiogram showed negative bubble study with EF 55 to 60%. Continue Plavix, atorvastatin 80 mg p.o. at bedtime, and aspirin 81mg PO QD. Swallow evaluation completed and tolerating dysphagia 3 diet. Patient was evaluated by physical therapy. In-house neurologyfollowing. Patient has a lengthy history of seizure disorder since childhood and we will continue home antiepileptic regimen Keppra 1500 mg twice daily, phenytoin 100 mg 3 times daily, and zonisamide 300 mg twice daily. Patient has multiple seizures throughout the day which is his baseline but appears overnight seizure was longer than usual. He reportedly does not lose consciousness during seizures and has generalized shaking. Appreciate neuro recs on antiepileptic regimen. Continue strict blood pressure control for CVA. Patient and updated at bedside. Repeat hematology and chemistry panel in AM. Anticipate discharge in the next [address] Baker
--- NOTE | 2024-02-21 13:52 | PC.SS ---
Rounding: Pending Vangie blackburn
[2024-02-21] MEDS: LACTULOSE SYRUP 20 GM/30 ML UDC PO (15:07)
--- NOTE | 2024-02-21 16:05 | PC.SS ---
PAS[facility] file exchanged to [facility]
--- NOTE | 2024-02-21 23:34 | VVPN_ITS ---
Telemedicine visit statement This visit was conducted with the use of interactive audio and video telecommunications system that permits real time communication between the patient and the provider. Patient's verbal consent for virtual visit was obtained on 02/21/24 at 2334. Documentation for date of: 02/21/24 Virtual exam Vital Signs Temp Pulse Resp BP Pulse Ox O2 Del Method 97 F 82 18 122/86 H 94 L Room Air 02/21/24 21:00 02/21/24 21:00 02/21/24 21:00 02/21/24 21:00 02/21/24 21:00 02/21/24 21:00 Objective Labs 02/21/24 06:50 02/21/24 05:20 Labs: Laboratory Results - last 24 hr 02/21/24 02/21/24 02/21/24 05:20 06:50 11:18 WBC 11.2 H RBC 4.88 Hgb 15.6 Hct 46.8 MCV 96 MCH 32.0 MCHC 33.3 RDW Std Deviation 46.2 H Plt Count 241 D Neut % (Auto) 75 Lymph % (Auto) 12 [place] % (Auto) 8 Eos % (Auto) 2 Baso % (Auto) 1 Neut # (Auto) 8.4 H Lymph # (Auto) 1.4 [place] # (Auto) 0.9 H Eos # (Auto) 0.2 Baso # (Auto) 0.1 Immature Gran # (Auto) 0.28 H Absolute Nucleated RBC 0.00 Immature Gran % 3 H Nucleated RBC % 0 Sodium 138 Potassium 4.3 Chloride 106 Carbon Dioxide 21.1 Anion Gap 11 BUN 21 Creatinine 1.0 Estim Creat Clear Calc 85.3 eGFR > 60 BUN/Creatinine Ratio 21 H Glucose 104 Calculated Osmolality 278 Lactic Acid 1.5 Calcium 10.0 Corrected Calcium 10.0 Phosphorus 3.5 Total Creatine Kinase 262 H Albumin 4.7 ABG Interpretation ABG results: 02/18/24 08:50 VBG pH 7.32 L VBG pCO2 42 VBG pO2 81 H VBG Base Excess -4 L
[2024-02-22] VITALS (10 sets, daily range): BP systolic 119–135; BP diastolic 71–79; PULSE 58–85; RESP 15–18; TEMP 35.8–36.4; O2SAT 95–99; BMI 34.9; BMI 12.0
[2024-02-22] MEDS: PHENYTOIN 100 MG CAPSR PO ×3 (05:10→21:24)
[2024-02-22] MEDS: clonazePAM 0.5 MG TABLET PO ×3 (05:10→21:25)
[2024-02-22] MEDS: ZONISAMIDE 100 MG CAPSULE 300 MG PO ×2 (09:50→21:25)
[2024-02-22] MEDS: ASPIRIN EC 81 MG TABEC PO (09:50)
[2024-02-22] MEDS: CLOPIDOGREL BISULFATE 75 MG TABLET PO (09:50)
[2024-02-22] MEDS: ATORVASTATIN CALCIUM 20 MG TABLET 80 MG PO (09:51)
[2024-02-22] MEDS: levETIRAcetam 250 MG TABLET 1500 MG PO ×2 (09:52→21:24)
--- NOTE | 2024-02-22 09:55 | PC.SS ---
Addendum entered by Kassi Velazco 02/22/24 16:05: Pt has not had bowel movement. Original Note: Follow up note: Pt will go to [facility] upon dc. Neuro recommendations are pending.
[2024-02-22] MEDS: SENNA TABLET 1 TAB PO (11:44)
[2024-02-22] MEDS: POLYETHYLENE GLYCOL 17 GM PACKET PO ×2 (11:44→21:22)
--- NOTE | 2024-02-22 14:36 | PD.ADDDSCHGE ---
Addendum Discharge Addendum Date of report being addended: 02/22/24 Narrative: Attending's attestation: I reviewed labs, imaging, EKG, home medications and prior available records. Face to face evaluation was performed by me. I have personally examined the patient and discussed assessment and plan with the IM team. I reviewed the resident note and agree with the plan with exceptions as below. Breakthrough seizures Acute right called a nuclea CVA Status post tPA Constipation Debility Echo with bubbles is negative Continue aspirin, Plavix, and atorvastatin Enema for the bowel movement Resume Keppra, phenytoin, and zonisamide. Outpatient follow-up with neurology PT recommended SNF Time spent is 40 minutes. More than 50% of the time was spent on patient education and coordination of care.
--- NOTE | 2024-02-22 15:02 | ESPR_ITS ---
<Statement entered by Mariza Ross MD - 02/22/24 15:29> Patient was seen and examined at bedside. Patient vitals within normal limits. On questioning patient reported significant improvement of his Left-sided mobility. He was able to raise his arm up to his cheek level. Still has severe distal muscle weakness, and facial droop. Repeat CT scan after tPA was negative for any hemorrhagic changes. Patient at this time on aspirin and Plavix and high-dose of atorvastatin 80 mg p.o. Patient reported that he has not had any bowel movement since admission for that reason patient was prescribed p.o. and HI laxatives. Will also pending neurological recommendations for discharge. Regarding his seizures, patient at baseline has 1-2 seizures a day, he is on 3 antiseizure medication including Keppra 1500 mg twice daily phenytoin 100 mg p.o. 3 times daily, zonisamide 300 mg twice daily and clonazepam 0.5 mg 3 times daily scheduled. He was on Ativan as needed as needed. His echo study showed HFpEF stage I for that reason the patient will need to follow-up in outpatient settings. Also found to have thyroid nodule although his TSH and free T4 within normal limits the patient has to follow-up with his primary care physician to rule out any emergency. - Patient's plan and care discussed with my attending, Dr. Mario Ross MD Internal Medicine PGY-2 Documentation for date of: 02/22/24 Subjective Subjective Interval history: Pt examined at bedside today. No acute overnight events. Pt reports he is doing okay, had a bowel movement yet. Patient has been trying to move around. No other complaints at this time Exam Vital Signs Temp Pulse Resp BP Pulse Ox O2 Del Method 96.6 F L 85 18 131/76 H 95 Room Air 02/22/24 11:53 02/22/24 11:53 02/22/24 11:53 02/22/24 11:53 02/22/24 11:53 02/22/24 11:53 Narrative Exam GENERAL: NAD, AAOx3 HEENT: Moist mucosa. Eyes open, symmetrical, & clear, able to raise eyebrows symmetrically, no symmetrical smile CARDIO: Heart RRR, no obvious murmurs PULM: No noted coughing/dyspnea CTA B/L, no R/W/R GI: Abdomen soft, nondistended, no pain on palpation. BSx4 SKIN/MSK/EXT: No wounds/rashes/edema/amputations, no pain on palpation. Pedal pulses present B/L NEURO: AAOx3, continues with left upper extremity and left lower extremity weakness although improving (more weakness with the L side of body), speech has improved, L facial droop present Objective Labs 02/23/24 04:40 02/23/24 04:40 ABG Interpretation ABG results: 02/18/24 08:50 VBG pH 7.32 L VBG pCO2 42 VBG pO2 81 H VBG Base Excess -4 L Quality Measures Quality Measures stroke Suspected type of Stroke: Acute Ischemic Last known well (date): 02/18/24 Last known well (time): 07:25 Tenecteplase given: within 60 min of arrival Rehab services: PT evaluation ordered VTE Prophylaxis: mechanical Antithrombotic by day 2:: not indicated (describe) Statin ordered: >75 y/o moderate or high intensity dose Anticoagulation ordered for A-fib or flutter (current or hx): not indicated Advance care planning discussed with:: patient Assessment & Plan Assessment Current Active Medications: Generic Name Dose Route Start Last Admin Trade Name Freq PRN Reason Stop Dose Admin Acetaminophen 650 mg 02/18/24 09:19 Acetaminophen 325 Mg Tablet PO 03/19/24 09:18 Q4HR PRN PAIN SCALE 1-3 (mild Acetaminophen 650 mg 02/18/24 09:19 Acetaminophen Supp 650 Mg Supp HI 03/19/24 09:18 Q4HR PRN PAIN SCALE 1-3 (mild Al Hydrox/Mg Hydrox/Simethicone 30 ml 02/18/24 09:19 Mg Hyd/Al Hyd/Daniel (Maalox Reg) Susp 30 Ml Udc PO 03/19/24 09:18 Q4HR PRN Heartburn or Upset Stomach Aspirin 81 mg 02/20/24 17:45 02/22/24 09:50 Aspirin Ec 81 Mg Tabec PO 03/21/24 17:44 81 mg QDAY GERARDO Administration Atorvastatin Calcium 80 mg 02/21/24 09:00 02/22/24 09:51 Atorvastatin Calcium 20 Mg Tablet PO 03/22/24 08:59 80 mg QAM GERARDO Administration Clonazepam 0.5 mg 02/20/24 22:00 02/22/24 13:55 Clonazepam 0.5 Mg Tablet PO 02/25/24 21:59 0.5 mg TID GERARDO Administration Clopidogrel Bisulfate 75 mg 02/20/24 09:00 02/22/24 09:50 Clopidogrel Bisulfate 75 Mg Tablet PO 03/21/24 08:59 75 mg QDAY GERARDO Administration Labetalol HCl 10 mg 02/18/24 15:48 Labetalol Inj 5 Mg/Ml Vial 20 Ml IV X1 PRN BP 180/105 and HR > 70 Levetiracetam 1,500 mg 02/18/24 21:00 02/22/24 09:52 Levetiracetam 250 Mg Tablet PO 03/19/24 20:59 1,500 mg BID GERARDO Administration Lorazepam 2 mg 02/20/24 20:16 02/20/24 20:22 Lorazepam 2 Mg/Ml Vial IVP 2 mg Q30M PRN Administration Seizure lasting >1min Magnesium Hydroxide 30 ml 02/18/24 09:19 02/21/24 09:48 Milk Of Magnesia Susp 30 Ml Udc PO 03/19/24 09:18 30 ml QDAY PRN Administration CONSTIPATION Nitroglycerin 0.4 mg 02/18/24 09:19 Nitroglycerin 0.4 Mg Subl Btl #25 SL Q5MIN PRN CHEST PAIN Ondansetron HCl 4 mg 02/18/24 07:59 Ondansetron Inj 2 Mg/Ml Inj 2 Ml IV 03/19/24 07:58 Q4HR PRN NAUSEA OR VOMITING Phenytoin 100 mg 02/18/24 22:00 02/22/24 13:55 Phenytoin 100 Mg Capsr PO 03/19/24 21:59 100 mg TID GERARDO Administration Polyethylene Glycol 17 gm 02/22/24 21:00 Polyethylene Glycol 17 Gm Packet PO 03/23/24 20:59 BID GERARDO Zonisamide 300 mg 02/18/24 21:00 02/22/24 09:50 Zonisamide 100 Mg Capsule PO 03/19/24 20:59 300 mg BID GERARDO Administration Plan 68-year-old male with past medical history significant of seizure disorder (on Keppra and zonisamide) since the age of 57 years old. Patient was admitted for CVA workup. MRI showed acute infarct of right caudate nucleus. Patient was admitted for further workup and SNF placement. #Acute CVA #25mm acute infarct right caudate nucleus LKW: 6 am 02/17, NIHSS Score: 8, received tenecteplase 25 Mg x 1 at 8:37 AM on 02/17 Tele neuro consulted, recommendations appreciated Head/Neck CTA : bilateral thyroid nodules, no significant neck arterial stenosis, no cerebral large vessel arterial occlusion depicted Head CT: negative for acute hemorrhage, mass effect or midline shift-> repeat 24 hours after TNK negative for hemorrhagic conversion Echo: stage 1 diastolic dysfunction with ejection fraction 55 to 60%, Negative bubble study MRI showed 25mm acute infarct right caudate nucleus Plan: ?Neuro on consult, appreciate recs -Neuro checks q4HR -HOB more than 30 degrees -Euglycemia, normotension and Avoid Hyperthermia (PRN Acetaminophen) -Plavix 75mg -Aspirin 81 mg -Atorvastatin 80 mg daily #Seizures Hx of gran Mal/partial seizures since 7 years old Reports daily seizures, sees Dr. Vences, neurology We will give as needed Klonopin 3 times daily scheduled to see if this improves symptoms. Will follow-up with neurologist Plan: -Seizure precautions -Keppra 1500mg BID -Phenytoin 100mg PO TID -Zonisamide 300mg PO BID -Clonazepam PO 0.5mg TID GERARDO -Neurology consulted, appreciate recommendations ?As above #Constipation #Abdominal Bloating Awaiting bowel movement from patient as he has not had 1 during admission Given enema, no bowel movement still Patient reports a lot of gas Plan: ?Continue with MiraLAX, senna, Dulcolax ?Simethicone #HFpEF stage 1 diastolic dysfunction echo done 02/17- EF 55-60% does not appear to be in CHF exacerbation, not fluid overload Plan: -continue to monitor -outpatient follow up with cardiology #Thyroid Nodules Head/Neck CTA-bilateral thyroid nodules, largest on the right 15mm TSH (1.82) and free T4 (1.04) Plan: -Follow up outpatient #Health Maintenance Disposition: Telemetry DVT prophylaxis: SCDs GI prophylaxis: Simethicone Diet: Dysphagia 3 CODE STATUS: Full Patient seen and care discussed with my senior resident, Dr. Ross, and my attending physician, Dr. Mario Zimmerman, PGY-1 Attending Provider Attestation/Addendum I reviewed labs, imaging, EKG, home medications and prior available records. Face to face evaluation was performed by me. I have personally examined the patient and discussed assessment and plan with the IM team. I reviewed the resident note and agree with the plan with exceptions as below. Please see my separate addendum for the same date of service
--- NOTE | 2024-02-22 15:31 | XR_ITS ---
Examination: Abdomen AP single view Technique: AP portable supine abdomen, single view Exam date and time: February 22, 2024 1539 hrs. Indications: Constipation this week. Findings: Moderate air and stool throughout the colon No obstruction No free air Mildly air distended stomach Impression: Moderate air and stool throughout the colon
[2024-02-22] MEDS: bisacodyL 10 MG SUPP PR (16:05)
[2024-02-22] MEDS: SIMETHICONE 80 MG CHEW PO (16:05)
--- NOTE | 2024-02-22 23:21 | ESPR_ITS ---
Documentation for date of: 02/22/24 Subjective Subjective Interval history: Patient was seen in [facility] today with his at the bedside. Continues to have left hemiparesis affecting the face arm and leg. He has not had any seizures after given Ativan per his . Exam - Neurology Vital Signs Temp Pulse Resp BP Pulse Ox O2 Del Method 97.2 F 73 15 121/77 96 Room Air 02/22/24 20:00 02/22/24 20:00 02/22/24 20:00 02/22/24 20:00 02/22/24 20:00 02/22/24 20:00 Narrative Exam GENERAL APPEARANCE: Well-developed, obese built white male in no acute distress. HEENT: Normocephalic, atraumatic, extraocular movements intact. Pupils: Equal reacting to light NECK: Supple, no JVD or bruits. CARDIOVASULAR: Heart: S1, S2 heard, regular without S3-S4 or murmur no rubs or gallops. LUNGS/CHEST: Clear to auscultation bilaterally. No rails, rhonchi, or wheezing. Normal inspection. ABDOMEN: Soft, nontender, with normal bowel sounds. No pulsatile masses. No rebound, rigidity, or guarding. Normal inspection and palpation. EXTREMITIES: Normal inspection and palpation. No edema, clubbing or cyanosis. SKIN: Warm and dry without rashes. Normal inspection. MUSCULOSKELETAL: No cervical, thoracic, lumbar or midline bony tenderness. Normal inspection. NEURO: Alert, awake and oriented x3. Cranial nerves: II through XII grossly intact with exception of left facial weakness of the neuron.. Speech and language: Mild dysarthria. Motor system: Tone and bulk: Normal: Strength: Left hemiparesis affecting the distal more than the proximal, pronator drift on the left. Deep tendon reflexes: 2+ bilaterally symmetrical. Plantar reflex: Downgoing bilaterally. Sensory system: Impaired to all modalities of sensation on the left rest of the exam: Limited. no signs of meningeal irritation noted. PSYCHIATRIC: Seems depressed and kind of irritable Objective Labs 02/23/24 04:40 02/21/24 05:20 ABG Interpretation ABG results: 02/18/24 08:50 VBG pH 7.32 L VBG pCO2 42 VBG pO2 81 H VBG Base Excess -4 L Assessment & Plan Additional Assessment & Plan Additional Plan: 68-year-old male with past medical history significant of seizure disorder (on Keppra and zonisamide). Patient had a seizure the morning of admission which lasted 30 mins, denied postictal state, showered and sat down for breakfast after a few minutes he was not able to move his left arm and also felt like his coffee was leaking from the side of his mouth. Patient presented to the ED and received tpa at 8:37, admitted to ICU for observation #Acute CVA -Initial NIHSS score 8 -Initial CT no hemorrhage, no midline shift. -Teleneuro consulted, TPA given at 8:37 -Current NIHSS 9 -MRI brain showed acute infarction involving the right basal ganglia. Continue with aspirin, Plavix and statin. Continue with physical therapy. He would need inpatient rehab. [facility] got [facility]. Encouraged him to participate with physical therapy. # Intractable epilepsy with multiple AEDs on board and nonfunctioning VNS -Continue with the current AEDs, follow seizure precautions and continue with Ativan as needed for breakthrough seizures.
[2024-02-23] VITALS: BP 128/71; PULSE 62; RESP 16; TEMP 36.9; O2SAT 96
[2024-02-23 04:00] VITALS: BP 127/72; PULSE 67; PULSE 68; RESP 16; TEMP 36.9; O2SAT 95
[2024-02-23] MEDS: PHENYTOIN 100 MG CAPSR PO ×2 (05:55→13:50)
[2024-02-23] MEDS: clonazePAM 0.5 MG TABLET PO ×2 (05:55→13:50)
[2024-02-23 06:00] VITALS: BMI 36.1
[2024-02-23 06:09] LABS: Basophils # (Auto) 0.1 Thou/mm3 (0.0-0.2); Basophils % (Auto) 1 % (0-2.5); Eosinophils # (Auto) 0.3 Thou/mm3 (0.0-0.5); Eosinophils % (Auto) 2 % (0-10); Hematocrit 43.2 % (41.0-53.0); Hemoglobin 14.8 g/dL (13.5-16.0); Immature Granulocytes % (Auto) 3 % (0-0); Immature Granulocytes Auto 0.33 Thou/mm3 (0.00-0.00); Lymphocytes # (Auto) 1.8 Thou/mm3 (1.0-4.8); Lymphocytes % (Auto) 15 % (10-50); Mean Corpuscular HGB Conc 34.3 g/dl (31.0-37.0); Mean Corpuscular Hemoglobin 32.7 pg (25.0-35.0); Mean Corpuscular Volume 95 fL (80-100); Monocytes # (Auto) 1.2 Thou/mm3 (0.0-0.8); Monocytes % (Auto) 10 % (0-12); Neutrophils # (Auto) 8.5 Thou/mm3 (1.8-7.7); Neutrophils % (Auto) 70 % (37-80); Nucleated Red Blood Cell % 0 /100 WBC (0); Platelet Count 275 Thou/mm3 (140-440); Red Blood Count 4.53 Miln/mm3 (4.50-5.90); White Blood Count 12.1 Thou/mm3 (3.8-10.6)
[2024-02-23 06:50] LABS: Alanine Aminotransferase 11 U/L (10-49); Albumin, Serum 4.2 gm/dL (3.4-4.8); Albumin/Globulin Ratio 1.7 (1.2-2.2); Alkaline Phosphatase 99 U/L (46-116); Anion Gap 9 (7-16); Aspartate Amino Transferase 14 U/L (0-34); BUN/Creatinine Ratio 23 Ratio (12-20); Bilirubin,Total 0.6 mg/dL (0.3-1.2); Blood Urea Nitrogen 21 mg/dL (9-23); Calcium 9.5 mg/dL (8.3-10.6); Calcium (Corrected) 9.5 mg/dL (8.5-10.1); Carbon Dioxide 22.8 mMol/L (20.0-31.0); Chloride 106 mMol/L (98-107); Creatinine (Component) 0.9 mg/dL (0.6-1.3); Estimated Creatinine Clearance 96.3 mL/min (>60); Globulin 2.5 gm/dL (2.3-3.5); Glucose 95 mg/dL (74-106); Magnesium 2.2 mg/dL (1.6-2.6); Osmolality,Calculated 278 (275-295); Phosphorous 3.1 mg/dL (2.4-5.1); Potassium 3.7 mMol/L (3.4-5.1); Sodium 138 mMol/L (136-145); Total Protein 6.7 gm/dL (5.7-8.2); eGFR > 60 See Note
[2024-02-23 08:00] VITALS: BP 124/69; PULSE 63; PULSE 65; RESP 17; TEMP 36.2; O2SAT 95
[2024-02-23] MEDS: POLYETHYLENE GLYCOL 17 GM PACKET PO (09:03)
[2024-02-23] MEDS: CLOPIDOGREL BISULFATE 75 MG TABLET PO (09:04)
[2024-02-23] MEDS: ASPIRIN EC 81 MG TABEC PO (09:04)
[2024-02-23] MEDS: levETIRAcetam 250 MG TABLET 1500 MG PO (09:04)
[2024-02-23] MEDS: ATORVASTATIN CALCIUM 20 MG TABLET 80 MG PO (09:04)
[2024-02-23] MEDS: ZONISAMIDE 100 MG CAPSULE 300 MG PO (09:13)
--- NOTE | 2024-02-23 10:43 | ESDS_ITS ---
<Statement entered by Mariza Ross MD - 02/23/24 17:12> Patient was seen and examined at bedside. I agree on the discharge assessment and plan. Patient is 68-year-old male patient with past medical history of seizure disorder was admitted to the hospital on 18 February 2024 after he was found to have left upper and lower extremity weakness associated with facial dr oop. Head CT did not show any hemorrhage or mass effect CT angio did not show any major vascular stenosis. Patient was admitted to the ICU for tPA, he stayed in the ICU for 24 hours for observation repeat CT scan after 24 hours was negative for any hemorrhagic conversion. MRI was done and showed 25 mm acute infarct of the right carotid nucleus. Echo was negative for PFO however it was positive for HFpEF stage I. Incidental finding of thyroid nodule was also noticed on the head and neck CT scan. Patient was downgraded to the floors and was to continue the treatment with aspirin, Plavix, high-dose of atorvastatin as per the neurology recommendations. The patient has episodes of seizure at the hospital. Even though the patient was already in his seizure home medications. Neurology informed that the patient baseline is to have 1-2 seizures per day and will continue the patient on his seizure medications. Patient cleared for discharge from neurology standpoint. - Patient's plan and care discussed with my attending, Dr. Olivia Ross MD Internal Medicine PGY-2 Planned Discharge Date 02/23/24 DS: Providers Provider Date of admission: 02/18/24 09:19 Primary care physician: Asael Fulton MD Admitting Provider: Jordan Duong MD Attending Provider on Admission: Jordan Duong MD Consults: 02/18/24 07:59 Consult to Neurology / Tele-Neurology Routine Comment: Consulting Provider: [facility] 02/18/24 09:28 Referral Physical Therapy Routine Comment: Physician Instructions: 02/18/24 09:29 Consult to Neurology / Tele-Neurology Routine Comment: Consulting Provider: Jasson Vences Referral Speech Therapy Routine Comment: Attending Provider on DC: Edmond Baker MD Discharging Provider: Edmond Baker MD DS: Diagnosis Problem List Completed Was Problem List Reviewed/Reconciled?: Yes Hospital Course Hospital Course Hospital course: Brock is a 68-year-old male with past medical history significant of seizure disorder who was admitted on 02/18/2024 to [facility] for Acute CVA with 25 mm acute infarct of the R Caudate nucleus. Prior to arriving to the ED, pt had experienced left upper and lower extremity weakness in addition with left facial droop. Patient, and the following vitals of a blood pressure 171/89, CBC CMP VBG UA and U tox were unremarkable. CT head was done for patient which showed no acute hemorrhage, mass effect or midline shift, head/neck CTA showed bilateral thyroid nodules, however no significant neck stenosis or large vessel occlusion. EKG showed normal sinus rhythm with first-degree AV block. Teleneuro was consulted and had assessed patient with NIHSS score of 8, since patient was within time window, was given tenecteplase 25 mg x1. Pt was then upgraded to the ICU for post tPA observation. Patient had echo done which was a negative bubble study, grade 1 diastolic dysfunction and EF of 55 to 60%. MRI was done for patient which showed acute CVA with 25 mm acute infarct of the right caudate nucleus. CT head was repeated to rule out hemorrhagic conversion, which showed no hemorrhagic transformation. Patient was then downgraded to the floors for further management. Neurology had continued recommendation with no changes to seizure medicines and to discharge on dual antiplatelet therapy. Also recommended to follow-up with neurology outpatient. Patient was discharged to SNF with recommendations to follow up with PCP for further evaluation and for further workup of thyroid nodules. Follow-up with your primary care physician within 1 week from discharge Follow-up with a neurologist within 2 weeks from discharge Use medications as prescribed We did an echocardiogram and we noticed that you have what is called diastolic heart failure for that reason you need to follow-up with a shellfish farming supervisor within 2 weeks from discharge On imaging we noticed that you have a thyroid nodule that need to be followed up for further imaging or sampling by your primary care physician. In case of worsening of her symptoms please return to the ED as soon as possible You are prescribed 2 types of blood thinners, please monitor any signs or symptoms of bleeding and inform your provider or present to the ED in case of bleeding. #Acute CVA #25mm acute infarct right caudate nucleus #Seizures #Constipation #Abdominal Bloating #HFpEF stage 1 diastolic dysfunction #Thyroid Nodules Patient seen and care discussed with my senior resident, Dr. Ross, and my attending physician, Dr. Olivia Zimmerman, PGY-1 Time Spent with Patient Time attestation: Total time spent providing and/or coordinating discharge services: Time spent: Greater than 30 minutes Quality: Stroke Pt Provided Written Stroke Discharge Instructions: Yes Exam Vital Signs Temp Pulse Resp BP Pulse Ox O2 Del Method 97.1 F 63 17 124/69 95 Room Air 02/23/24 08:00 02/23/24 08:00 02/23/24 08:00 02/23/24 08:00 02/23/24 08:00 02/23/24 08:00 Narrative Exam GENERAL: NAD, AAOx3 HEENT: Moist mucosa. Eyes open, symmetrical, & clear, able to raise eyebrows symmetrically, no symmetrical smile CARDIO: Heart RRR, no obvious murmurs PULM: No noted coughing/dyspnea CTA B/L, no R/W/R GI: Abdomen soft, nondistended, no pain on palpation. BSx4 SKIN/MSK/EXT: No wounds/rashes/edema/amputations, no pain on palpation. Pedal pulses present B/L NEURO: AAOx3, continues with left upper extremity and left lower extremity weakness although improving (more weakness with the L side of body), speech has improved, L facial droop present Discharge Plan Plan Patient Disposition: Xfer Skilled Nsg Fac (SNF) Patient condition on transfer: Stable and Benefits outweigh risks Care Plan Goals: Follow-up with your primary care physician within 1 week from discharge Follow-up with a neurologist within 2 weeks from discharge Use medications as prescribed We did an echocardiogram and we noticed that you have what is called diastolic heart failure for that reason you need to follow-up with a shellfish farming supervisor within 2 weeks from discharge On imaging we noticed that you have a thyroid nodule that need to be followed up for further imaging or sampling by your primary care physician. In case of worsening of her symptoms please return to the ED as soon as possible You are prescribed 2 types of blood thinners, please monitor any signs or symptoms of bleeding and inform your provider or present to the ED in case of bleeding. Prescriptions/Referrals Prescriptions/Med Rec: New aspirin 81 mg Tablet,Delayed Release (Dr/Ec) 81 mg PO QDAY 30 Days Qty: 30 0RF atorvastatin 80 mg tablet 80 mg PO QDAY Qty: 30 0RF pantoprazole 40 mg tablet,delayed release (DR/EC) 40 mg PO QDAY 14 Days Qty: 14 0RF clopidogrel [Plavix] 75 mg tablet 75 mg PO QDAY 30 Days Qty: 30 0RF Continued zonisamide 100 MG capsule 300 mg PO BID Qty: 0 levetiracetam [Keppra XR] 750 MG tablet extended release 24 hr 1,500 mg PO BID Qty: 30 clonazepam 1 mg tablet 1 mg PO BID PRN (Reason: Seizures) Patient Comments: TAKE 1 TABLET BY MOUTH TWICE DAILY NEEDED FOR SEIZURES phenytoin sodium extended 100 mg capsule 100 mg PO TID Patient Comments: TAKE 1 CAPSULE BY MOUTH 3 TIMES DAILY ALTERNATING WITH 2 CAPSULES BY MOUTH TWICE DAILY Discontinued omeprazole 40 mg capsule,delayed release(DR/EC) 40 mg PO QDAY Patient Comments: TAKE 1 CAPSULE BY MOUTH DAILY 30 MINUTES BEFORE BREAKFAST FOR GERD Referrals: Asael Fulton MD [Primary Care Provider] - Patient/Caregiver Discharge Instructions Discharge Activity: as per physical therapy Other Discharge Activity Instructions:: Follow-up with your primary care physician within 1 week from discharge Follow-up with a neurologist within 2 weeks from discharge Use medications as prescribed We did an echocardiogram and we noticed that you have what is called diastolic heart failure for that reason you need to follow-up with a shellfish farming supervisor within 2 weeks from discharge On imaging we noticed that you have a thyroid nodule that need to be followed up for further imaging or sampling by your primary care physician. In case of worsening of symptoms please return to the ED as soon as possible You are prescribed 2 types of blood thinners, please monitor any signs or symptoms of bleeding and inform your provider or present to the ED in case of bleeding. Education Materials: Stroke Mood Swings Depression, Discharge Instructions for Epilepsy, Stroke Regaining Movement, Stroke Swallowing Problems Caregiving, Healthy Lifestyle to Prevent ... Print Language: Maldivian Stand Alone Forms: Lucy Award Info., Patient Portal Info Letter Discharge Order Discharge Orders: Discharge (Routine); Ordered 02/23/24 Ordered By: Mariza Ross Quality Discharge Quality Measures VTE prophylaxis (SCDs) Attestestation MD Attestation I have examined the patient, reviewed labs and imaging findings, discussed the case with the resident(s), and reviewed entered orders. I agree with the plan of care as outlined in this note. Dr. Baker
[2024-02-23 12:00] VITALS: BP 115/66; PULSE 71; RESP 17; TEMP 36.2; O2SAT 96
--- NOTE | 2024-02-23 12:30 | PC.SS ---
SS attempted to setup gurney transportation with [facility] but was unsuccessful. Per Melva at [facility] they are not the transportation vendor. SS called Daisy from [employer] who explained they do not have staff for transportation today. had provided credit care for payment to [facility] [employer]. is aware. SS setup gurney transportation with [facility]. SS has sent patient's facesheet, ambulance form, and KYLE signed by director housekeeping to [facility] using [facility]. Transport is set for 2pm to [facility]. Pt and are aware. Bedside nurse, Karel is aware. Radha at [facility] is aware.
--- NOTE | 2024-02-23 12:38 | PC.NURSE ---
Report given to [facility] nurse from [facility], all questions answered.
== END 2024-02-23 14:57 | disposition skilled nursing facility (03) | DRG 62 ==
LOC: SERX 09:45 → SERHOLD 09:47 → S2SX 12:05 → S3SX 02-19 19:08 → S3NX 02-21 19:21
PROVIDERS: Student in an Organized Health Care Education/Training Program; Admitting Provider Internal Medicine; Emergency Provider Emergency Medicine; PCP Family Medicine; Visit Provider Student in an Organized Health Care Education/Training Program
DX: I63.9 Cerebral infarction, unspecified (principal); G40.419 Other generalized epilepsy and epileptic syndromes, intractable, without status epilepticus; G81.94 Hemiplegia, unspecified affecting left nondominant side; I50.30 Unspecified diastolic (congestive) heart failure; R29.810 Facial weakness; R47.1 Dysarthria and anarthria; E04.2 Nontoxic multinodular goiter; I44.0 Atrioventricular block, first degree; R29.708 NIHSS score 8; Z79.02 Long term (current) use of antithrombotics/antiplatelets; Z79.899 Other long term (current) drug therapy; K59.00 Constipation, unspecified
CPT/HCPCS: 36415; 70450; 70496; 70498; 70544; 74018; 80053; 80061; 80069; 80307; 81001; 82550; 82803; 83036; 83605; 83735; 84100; 84439; 84443; 84484; 84703; 85025; 85610; 85730; 87040; 87081; 87086; 92507; 92523; 92526; 92610; 93005; 93225; 93306; 97129; 97162; 99291; A4649; J2060; J3101; J7030; Q9967; A9270

== ENCOUNTER 2024-03-02 15:09 | Inpatient (IN) | payer MEDICARE, BC, SELFPAY ==
[2024-03-02] VITALS (13 sets, daily range): BP systolic 135–170; BP diastolic 68–130; PULSE 22–112; RESP 18–93; TEMP 37–39; O2SAT 94–99; BMI 30.4
--- NOTE | 2024-03-02 15:10 | EKG_ITS ---
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1955 Requested By: Devon Araujo Order Number: [id number] Reading MD: Devon Araujo Measurements Intervals [place] Rate: 103 P: LA: QRS: 48 QRSD: 97 T: 36 QT: 340 QTc: 446 Interpretive Statements ATRIAL FIBRILLATION WITH RAPID VENTRICULAR RESPONSE WITH ABERRANT CONDUCTION OR VENTRICULAR PREMATURE COMPLEXES MINIMAL ST DEPRESSION [0.025+ mV ST DEPRESSION] ABNORMAL RHYTHM ECG Compared to ECG 02/18/2024 08:55:32 Ventricular premature complex(es) now present Aberrant conduction of supraventricular beat(s) now present ST (T wave) deviation now present Sinus rhythm no longer present Sinus arrhythmia no longer present First degree AV block no longer present /store/S0/[id number].pdf
--- NOTE | 2024-03-02 15:10 | PC.NURSE ---
Patient to er via SNF with c/o left sided deficit and seizure activity, h/o cva and sz. stroke alert called, patient gone to ct via [facility] with RN, Dr. Urena, telenuerologist, evaluated patient and states no alteplase candidate.
--- NOTE | 2024-03-02 15:10 | XR_ITS ---
Examination: CT brain head without contrast. 2-D sagittal coronal reconstructions Date and time of exam:March 02, 2024 at 1515 hrs. Comparison February 19, 2024 Indications: Stroke alert, onset focal neurologic deficit including altered mental status beginning 12:00 PM today, acute infarct right caudate nucleus on CT brain scan February 19, 2024 CTDI: vol (mGy):51.1 DLP: (mGycm):1060 Technique: Multiple CT axial sections of the brain have been obtained, 5 mm slice thickness. Contrast has not been administered. 2-D sagittal, coronal reconstructions have been obtained Low dose protocols were performed. One or more of the following dose reduction techniques were used; automated exposure control, adjustment of the mA and/or KV according to patient size, use of iterative reconstruction technique. Findings: No significant ventricular enlargement. Subacute infarct right caudate nucleus Old appearing infarct left cerebellar hemisphere but clinical correlation advised Intra-axial or extra-axial hemorrhage density is not seen. No mass effect or midline shift Basal cisterns are not remarkable. Fourth ventricle is midline. Cranial vault intact. Mildly hyperdense area in the posterior right parietal lobe axial image 8, measuring 20 mm, which may be prominent sagittal sinus, small hyperdense mass not excluded Impression: Negative for acute hemorrhage, mass effect or midline shift Mildly hyperdense area in the posterior right parietal lobe, axial image 8, measuring 20 mm, which may be prominent sagittal sinus, small hyperdense mass at the convexity not excluded, such as incidental meningioma Suggest repeat brain MRI MRA pre and post contrast follow-up
--- NOTE | 2024-03-02 15:10 | XR_ITS ---
Examination: CTA carotids with intravenous contrast CTA brain, head with intravenous contrast. 2-D sagittal, coronal reconstructions. 3-D reconstructions. Exam date and time: March 02, 2024 1926 hrs. Indications: Stroke alert today, onset focal neurologic deficit CTDI: vol (mGy) 23.2 DLP: (mGycm) 467 Technique: Multiple CTA axial brain, head carotid images post intravenous contrast injection 100 cc, [id number]. 2-D sagittal, coronal reconstructions. 3-D reconstructions, 3-D post processing including vascular maximum intensity projection images. Low dose protocols were performed. One or more of the following dose reduction techniques were used; automated exposure control, adjustment of the mA and/or KV according to patient size, use of iterative reconstruction technique. Findings: Right thyromegaly Numerous bilateral thyroid nodules, the largest in the right lobe of the thyroid 12 mm No significant common carotid carotid bifurcation or internal carotid artery stenoses Mildly dominant left vertebral artery with no critical stenoses No cerebral large vessel arterial occlusions thrombus dissection or cerebral aneurysm Impression: Right thyromegaly Bilateral numerous thyroid nodules, recommend dedicated thyroid sonography follow-up No significant neck arterial stenoses No cerebral large vessel arterial occlusions or thrombus Recommend repeat brain MRI follow-up stroke protocol to compare with the February 19, 2024 exam
--- NOTE | 2024-03-02 15:13 | PD.EDADULT ---
ED General RME/HPI General Chief complaint: Altered Mental Status Stated complaint: AMS Time Seen by Provider: 03/02/24 15:10 Arrival date/time: 03/02/24 15:09 CC: Altered mental status HPI patient presents the ER via EMS who state the patient was thought to have had a seizure, however afterwards the patient had altered mental status. EMS reports stable vital signs with mild hypertension and route. At the time of initial assessment patient is not tracking the squeezing with his right hand no response with his left hand or left leg. After stroke protocol was initiated review of medical records show that the patient was here in this facility on 02/18/2024 for stroke received tenecteplase for an NIHSS score of 8. Related Data Home Medications ?Medication ?Instructions ?Recorded ?Confirmed levetiracetam 750 mg 1,500 mg PO BID Seizures ##30 12/23/12 02/18/24 tablet,extended release 24 hr (Keppra XR) zonisamide 100 mg capsule 300 mg PO BID Seizures #0 caps 12/23/12 02/18/24 clonazepam 1 mg tablet 1 mg PO BID PRN Seizures 02/18/24 02/18/24 phenytoin sodium extended 100 mg 100 mg PO TID 02/18/24 02/18/24 capsule Previous Rx's ?Medication ?Instructions ?Recorded Plavix 75 mg tablet (clopidogrel) 75 mg PO QDAY 1 month #30 tabs 02/22/24 aspirin 81 mg tablet,delayed 81 mg PO QDAY 30 days #30 tabs 02/22/24 release atorvastatin 80 mg tablet 80 mg PO QDAY #30 tabs 02/22/24 pantoprazole 40 mg tablet,delayed 40 mg PO QDAY 2 weeks #14 tabs 02/22/24 release Allergies Allergy/AdvReac Type Severity Reaction Status Date / Time No Known Allergies Allergy Verified 11/23/23 09:09 Review of Systems Review of Systems ROS Unobtainable: unobtainable due to mental status Past Medical History Past Medical History NEUROLOGIC: Positive Neurological Disorders (Vagal nerve stimulator), Seizures and Head Trauma; Negative Cerebrovascular Accident CARDIAC: Negative Cardiac Disorders or Congestive Heart Failure RESPIRATORY: Positive Pneumonia; Negative Chronic Obstructive Pulmonary Disease (COPD) or Asthma GASTROINTESTINAL: Positive Obesity; Negative Gastrointestinal Disorders or Esophageal Varices GENITOURINARY: Negative Genitourinary Disorders or Renal Disease MUSCULOSKELETAL: Negative Musculoskeletal Disorders ENT: Positive Head Trauma ENDOCRINE: Negative Endocrine Disorders, Diabetes Mellitus Type 1 or Diabetes Mellitus Type 2 HEMATOLOGIC: Negative Blood Disorders OTHER HISTORY: Positive Hospitalization, Chicken Pox, Measles and Mumps; Negative Autoimmune Disease, Falls, Blood Transfusions, Anesthesia Reactions or Cancer Surgical History SURGICAL: Positive Vasectomy Social History SMOKING STATUS: Never smoker ED Exam Narrative Physical exam: [General: Appears not in any acute distress Head normocephalic HEENT: Eyes: Pupils are PERRLA and tracking no entrapment. All other subsystems HEENT are within acceptable limits Neck is supple nontender Chest equal chest rise nontender to palpation Respiratory: Clear to auscultation no wheezes crackles or rubs CV: Rate rhythm is regular no murmurs rubs or clicks Abdomen is soft nontender no masses positive bowel sounds all 4 quadrants Back: No CVA tenderness no spinous process tenderness from cervical spine thoracic and lumbar spine Skin: Intact no petechiae rash induration ulceration or crepitus Extremities: Left sided flaccidity. Moving all other extremities against resistance cap refill less than 2 seconds neurosensory intact Neuro: Awake following commands Course Course Course Narrative: At 1850, the at bedside states the patient's flickering eyebrows were indicative of a seizure and that he only says what or foul language which the patient was doing. This time I ordered a gram of phenytoin and a milligram of Ativan. At shift change 1710 I was notified by the new nurse that the patient's core temp was 102.0. Quality Measures none Orders Category Date Time Status Bedside Blood Glucose NOW Care 03/02/24 15:10 Active Transportation Dispatcher NOW Care 03/02/24 15:10 Active Transportation Dispatcher STAT Care 03/02/24 19:07 Active Continuous Pulse Oximetry NOW Care 03/02/24 15:10 Completed Continuous Pulse Oximetry STAT Care 03/02/24 19:07 Completed EKG (ED ONLY) *Do not use* NOW Care 03/02/24 15:10 Completed EKG (ED ONLY) *Do not use* NOW Care 03/02/24 19:07 Active In and Out Catheter NEEDED Care 03/02/24 15:10 Active Insert IV NOW Care 03/02/24 15:10 Active NIH Stroke Scale now Care 03/02/24 15:10 Active NPO NOW Care 03/02/24 15:10 Active NPO STAT Care 03/02/24 19:07 Active Nurse Swallow Screen x1 Care 03/02/24 15:10 Active Strict Intake and Output Routine Care 03/02/24 19:07 Ordered Consult to Neurology / Tele-Neurology Routine Cons 03/02/24 15:[address] angio stroke protocol Stat Exams 03/02/24 15:[address] stroke protocol Stat Exams 03/02/24 15:10 Completed EKG (ED Only) Stat Exams 03/02/24 15:10 Draft EKG (ED Only) Stat Exams 03/02/24 19:07 Ordered XR chest 1V Stat Exams 03/02/24 19:07 Completed B-Type Natriuretic Peptide Stat Lab 03/02/24 19:53 Completed Blood Culture (Lab) Stat Lab 03/02/24 19:53 Received CBC Stat Lab 03/02/24 15:11 Completed CBC Stat Lab 03/02/24 19:53 Completed Comprehensive Metabolic Panel Stat Lab 03/02/24 15:11 Completed Comprehensive Metabolic Panel Stat Lab 03/02/24 19:53 Completed Drug Screen,Urine Stat Lab 03/02/24 19:24 Received HCG Titer if Positive Stat Lab 03/02/24 15:11 Completed LDH (Lactate Dehydrogenase) Stat Lab 03/02/24 19:53 Completed Lactate (Lactic Acid) Stat Lab 03/02/24 19:53 Completed Lipase Stat Lab 03/02/24 19:53 Completed Magnesium Stat Lab 03/02/24 15:11 Completed Magnesium Stat Lab 03/02/24 19:53 Completed Partial Thromboplastin Time Stat Lab 03/02/24 15:11 Completed Phosphorous Stat Lab 03/02/24 19:53 Completed Procalcitonin Stat Lab 03/02/24 19:53 Completed Prothrombin Time with INR Stat Lab 03/02/24 15:11 Completed Troponin I Stat Lab 03/02/24 15:11 Completed Troponin I Stat Lab 03/02/24 19:53 Completed Urinalysis Stat Lab 03/02/24 19:24 Completed Urine Culture Stat Lab 03/02/24 19:24 Received Acetaminophen Supp [Tylenol Supp] Med 03/02/24 19:08 Discontinued 650 mg MN X1 ONE LORazepam [Ativan Inj] Med 03/02/24 18:44 Discontinued 1 mg IVP X1 ONE Ondansetron Inj [Zofran Inj] Med 03/02/24 15:10 Active 4 mg IV Q4HR PRN Phenytoin Inj [Dilantin Inj] Med 03/02/24 18:44 Discontinued 1,000 mg IV X1 ONE Sodium Chloride 0.9% 1000 ml [Ns] 1,000 ml Med 03/02/24 20:35 Active IV 999 mls/hr cefTRIAXone/D5w 1gm IV premix [Rocephin/D5w 1gm IV Med 03/02/24 20:38 Active premix] 50 ml IV X1 levETIRAcetam INJ [Keppra Inj] Med 03/02/24 15:43 Discontinued 1,000 mg IVP X1 ONE Oxygen Delivery NOW RT 03/02/24 15:10 Active Vital Signs Vital signs: Vital Signs Pulse Rate 94 03/02/24 15:55 Respiratory Rate 22 H 03/02/24 15:55 Blood Pressure 138/98 H 03/02/24 15:55 Pulse Oximetry (%) 98 03/02/24 15:55 Oxygen Delivery Method Room Air 03/02/24 15:55 [facility] Patient data External records reviewed:: 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 Seizure disorder How is presenting disease/condition affected by chronic disease/condition?: exacerbated by Evaluation data The following diagnostics were reviewed and interpreted by me:: lab results, radiology exam(s) and EKG tracing(s) Lab and/or radiology exams considered but not ordered:: EKG performed at 1643 shows a ventricular rate of 103 QRS of 9 7 QTc of 400 is A-fib with RVR. COVID influenza is negative CBC shows 23,000 white count, no anemia thrombocytopenia Coags within acceptable limits CMP shows a glucose of 132 no other electrolyte imbalances renal impairment transaminitis or T. bili elevation. Troponin and BNP are negative CT of the head is interpreted by me read by radiology as negative Urine is positive for urinary tract infection Interpretation Summary: Sukhi neurologist was involved with this patient prior to her knowledge the patient had previously been admitted for a CVA and had received tPA. During the course of the workup, including a long delay in getting the CTA due to nonavailability of IV access. The patient spiked a fever of 102. Sepsis was initiated. At 2041 patient appears to have a urinary tract infection was loaded with fluids and Rocephin, patient will be admitted to the hospitalist for further medical management. Medications Medications considered but not ordered:: None Medication administrations:: Medication Administration History Sodium Chloride (Ns) 1,000 mls @ 999 mls/hr IV .Q1H1M ONE Stop: 03/02/24 21:35 Ceftriaxone Sodium/Dextrose (Rocephin/D5w 1gm Iv Premix) 50 mls @ 100 mls/hr IV X1 ONE Stop: 03/02/24 21:07 Ondansetron HCl (Ondansetron Inj 2 Mg/Ml Inj 2 Ml) 4 mg IV Q4HR PRN PRN Reason: NAUSEA OR VOMITING Stop: 04/01/24 15:09 Last Admin: 03/02/24 17:54 Dose: 4 mg Documented By: ROSIO Discontinued Medications Acetaminophen (Acetaminophen Supp 650 Mg Supp) 650 mg MN X1 ONE Stop: 03/02/24 19:09 Last Admin: 03/02/24 19:23 Dose: 650 mg Documented By: EDU Levetiracetam (Levetiracetam Inj 100 Mg/Ml Vial 5ml) 1,000 mg IVP X1 ONE Stop: 03/02/24 15:44 Last Admin: 03/02/24 17:54 Dose: 1,000 mg Documented By: ROSIO Lorazepam (Lorazepam 2 Mg/Ml Vial) 1 mg IVP X1 ONE Stop: 03/02/24 18:45 Last Admin: 03/02/24 18:54 Dose: 1 mg Documented By: ROSIO Phenytoin Sodium (Phenytoin Inj 50 Mg/Ml Vial 5 Ml) 1,000 mg IV X1 ONE Stop: 03/02/24 18:45 Last Admin: 03/02/24 19:46 Dose: 1,000 mg Documented By: EDU None Consultations Consultation(s) initiated? (list below): Yes Consultation #1 (Physician, Specialty, Details): Teleneurology Time: 19:00 Diagnosis Differential Diagnosis ED Complaint MDM: CVA TIA seizure disorder status epilepticus sepsis UTI Most likely diagnosis given after review of the tests above:: Seizure disorder UTI sepsis Admission Indicated Admission indicated?: indicated Explain why admission is indicated or not indicated:: Further medical management Admission Request Was there a request for admission?: No Disposition Plan Disposition Plan: Admit Medical Decision Making Differential Diagnosis Differential Diagnosis: CVA TIA seizure disorder status epilepticus sepsis UTI Lab Data 03/02/24 19:53 03/02/24 19:53 Labs: Lab Results 03/02/24 03/02/24 03/02/24 Range/Units 15:11 19:24 19:53 WBC 23.5 H 26.3 H (3.8-10.6) Thou/mm3 RBC 4.90 4.80 (4.50-5.90) Miln/mm3 Hgb 15.8 15.4 (13.5-16.0) g/dL Hct 46.2 45.5 (41.0-53.0) % MCV 94 95 (80-100) fL MCH 32.2 32.1 (25.0-35.0) pg MCHC 34.2 33.8 (31.0-37.0) g/dl RDW Std Deviation 44.7 H 45.1 H (35.1-43.9) fL Plt Count 266 263 (140-440) Thou/mm3 Neut % (Auto) 85 H 88 H (37-80) % Lymph % (Auto) 4 L 3 L (10-50) % Caroline % (Auto) 10 8 (0-12) % Eos % (Auto) 0 0 (0-10) % Baso % (Auto) 0 0 (0-2.5) % Neut # (Auto) 20.0 H 23.1 H (1.8-7.7) Thou/mm3 Lymph # (Auto) 1.0 0.8 L (1.0-4.8) Thou/mm3 Caroline # (Auto) 2.2 H 2.2 H (0.0-0.8) Thou/mm3 Eos # (Auto) 0.0 0.0 (0.0-0.5) Thou/mm3 Baso # (Auto) 0.0 0.1 (0.0-0.2) Thou/mm3 Immature Gran # (Auto) 0.20 H 0.25 H (0.00-0.00) Thou/mm3 Absolute Nucleated RBC 0.00 0.00 (0.00-0.00) Thou/mm3 Immature Gran % 1 H 1 H (0-0) % Nucleated RBC % 0 0 (0) /100 WBC PT 11.9 (9.0-12.2) Seconds INR 1.1 (0.9-1.3) APTT 32.0 D (22.0-36.0) Seconds Sodium 137 136 (136-145) mMol/L Potassium 4.1 3.9 (3.4-5.1) mMol/L Chloride 106 104 (98-107) mMol/L Carbon Dioxide 21.3 22.6 (20.0-31.0) mMol/L Anion Gap 10 9 (7-16) BUN 19 20 (9-23) mg/dL Creatinine 1.2 1.0 (0.6-1.3) mg/dL Estim Creat Clear Calc Not Performed. 92.3 eGFR > 60 > 60 (60 - ) See Note BUN/Creatinine Ratio 16 20 (12-20) Ratio Glucose 132 H 118 H (74-106) mg/dL Calculated Osmolality 278 275 (275-295) Lactic Acid 1.1 (0.4-2.0) mMol/L Calcium 9.8 9.5 (8.3-10.6) mg/dL Corrected Calcium 9.8 9.5 (8.5-10.1) mg/dL Phosphorus 3.1 (2.4-5.1) mg/dL Magnesium 1.9 1.9 (1.6-2.6) mg/dL Total Bilirubin 0.6 0.6 (0.3-1.2) mg/dL AST 15 13 (0-34) U/L ALT 12 14 (10-49) U/L Alkaline Phosphatase 107 102 (46-116) U/L Lactate Dehydrogenase 145 (120-246) U/L Troponin I < 0.020 < 0.020 (0.0-0.045) ng/mL B-Natriuretic Peptide 59 (0-100) pg/mL Total Protein 7.2 7.2 (5.7-8.2) gm/dL Albumin 4.5 4.5 (3.4-4.8) gm/dL Globulin 2.7 2.7 (2.3-3.5) gm/dL Albumin/Globulin Ratio 1.7 1.7 (1.2-2.2) Lipase 30 (12-53) U/L Procalcitonin 0.59 H (0.0-0.49) ng/ml Ur Collection Type Catheter Urine Color Yellow (Lt Yel-Yel) Urine Clarity Clear (Clear/Hazy) Urine pH 6.0 (5.0-7.0) Ur Specific [place] > 1.035 H (1.001-1.035) Urine Protein 1+ A (Neg - Trace) Urine Glucose (UA) Negative (Negative) Urine Ketones 2+ A (Negative) Urine Blood 3+ A (Negative) Urine Nitrite Negative (Negative) Urine Bilirubin Negative (Negative) Urine Urobilinogen (Auto) 2.0 (0.0-1.0) mg/dL Ur Leukocyte Esterase Positive (Negative) Urine RBC 109 H (0-3) /hpf Urine WBC 103 H (0-5) /hpf Ur Squamous Epith Cells 1 (0-5) /hpf Urine Bacteria None (None) HCG (Qual) Negative Discharge Plan Plan Patient Disposition: HOME (Self Care) Patient condition on transfer: Stable Prescriptions/Referrals Prescriptions/Med Rec: No Action zonisamide 100 MG capsule 300 mg PO BID Qty: 0 levetiracetam [Keppra XR] 750 MG tablet extended release 24 hr 1,500 mg PO BID Qty: 30 clonazepam 1 mg tablet 1 mg PO BID PRN (Reason: Seizures) Patient Comments: TAKE 1 TABLET BY MOUTH TWICE DAILY NEEDED FOR SEIZURES phenytoin sodium extended 100 mg capsule 100 mg PO TID Patient Comments: TAKE 1 CAPSULE BY MOUTH 3 TIMES DAILY ALTERNATING WITH 2 CAPSULES BY MOUTH TWICE DAILY aspirin 81 mg Tablet,Delayed Release (Dr/Ec) 81 mg PO QDAY 30 Days Qty: 30 0RF atorvastatin 80 mg tablet 80 mg PO QDAY Qty: 30 0RF pantoprazole 40 mg tablet,delayed release (DR/EC) 40 mg PO QDAY 14 Days Qty: 14 0RF clopidogrel [Plavix] 75 mg tablet 75 mg PO QDAY 30 Days Qty: 30 0RF Referrals: Michael Fulton MD [Primary Care Provider] - In 1 week Problem List Clinical Impression: Seizure disorder, CVA (cerebral vascular accident), Fever, UTI (urinary tract infection) due to urinary indwelling catheter Patient/Caregiver Discharge Instructions Print Language: Guyanese Stand Alone Forms: Lucy Award Info., Patient Portal Info Letter PA/CREDENTIALS SPECIALIST Supervising Physician PA/CREDENTIALS SPECIALIST Supervising Physician: Devon Arce ENP
[2024-03-02 15:17] LABS: Basophils % (Auto) 0 % (0-2.5); Eosinophils % (Auto) 0 % (0-10); Hematocrit 46.2 % (41.0-53.0); Hemoglobin 15.8 g/dL (13.5-16.0); Immature Granulocytes % (Auto) 1 % (0-0); Lymphocytes % (Auto) 4 % (10-50); Mean Corpuscular HGB Conc 34.2 g/dl (31.0-37.0); Mean Corpuscular Hemoglobin 32.2 pg (25.0-35.0); Mean Corpuscular Volume 94 fL (80-100); Monocytes # (Auto) 2.2 Thou/mm3 (0.0-0.8); Monocytes % (Auto) 10 % (0-12); Neutrophils % (Auto) 85 % (37-80); Nucleated Red Blood Cell % 0 /100 WBC (0); Platelet Count 266 Thou/mm3 (140-440); RDW Standard Deviation 44.7 fL (35.1-43.9); White Blood Count 23.5 Thou/mm3 (3.8-10.6)
--- NOTE | 2024-03-02 15:35 | PC.NURSE ---
ivl to right ac, infiltrated attempting ivl's for CTA exam.
[2024-03-02 15:36] LABS: INR 1.1 (0.9-1.3); Prothrombin Time 11.9 Seconds (9.0-12.2)
[2024-03-02 15:37] LABS: Alanine Aminotransferase 12 U/L (10-49); Albumin, Serum 4.5 gm/dL (3.4-4.8); Albumin/Globulin Ratio 1.7 (1.2-2.2); Alkaline Phosphatase 107 U/L (46-116); Anion Gap 10 (7-16); Aspartate Amino Transferase 15 U/L (0-34); BUN/Creatinine Ratio 16 Ratio (12-20); Bilirubin,Total 0.6 mg/dL (0.3-1.2); Blood Urea Nitrogen 19 mg/dL (9-23); Calcium 9.8 mg/dL (8.3-10.6); Calcium (Corrected) 9.8 mg/dL (8.5-10.1); Carbon Dioxide 21.3 mMol/L (20.0-31.0); Chloride 106 mMol/L (98-107); Creatinine (Component) 1.2 mg/dL (0.6-1.3); Globulin 2.7 gm/dL (2.3-3.5); Glucose 132 mg/dL (74-106); Magnesium 1.9 mg/dL (1.6-2.6); Osmolality,Calculated 278 (275-295); Potassium 4.1 mMol/L (3.4-5.1); Sodium 137 mMol/L (136-145); Total Protein 7.2 gm/dL (5.7-8.2); Troponin I < 0.020 ng/mL (0.0-0.045); eGFR > 60 See Note
[2024-03-02 15:43] LABS: HCG Titer if Positive Negative
--- NOTE | 2024-03-02 15:49 | PC.NURSE ---
Unable to obtain ivl for cta in CT, called charge nurse Stephanie made aware, will come to ct to attempt ivl.
--- NOTE | 2024-03-02 16:21 | PD.EDADDENDU ---
Emergency Room Addendum Addendum Narrative: PROCEDURE NOTE: IV Placement under Ultrasound Guidance Indication: IV access required. Multiple attempts at peripheral IV placement were made by the nursing staff without success. Procedure: The area was prepped in the usual fashion. The R IV AC was cannulated with a 20 gauge angiocath with use of dynamic ultrasound to identify the vein. The patient tolerated the procedure well. Complications: none
--- NOTE | 2024-03-02 16:30 | PC.NURSE ---
Patient back from ct and taken to rm 3 unable to perform cta, ivl to left ac infilitrated, will notify dr. rdz currently patient non verbal looking aound room and making eye contact.
--- NOTE | 2024-03-02 16:51 | PC.NURSE ---
patient has no iv access, and unable to insert in and out cathetar do to obstruction, patient has slight bleeding from urethra, Devon, provider made aware.
--- NOTE | 2024-03-02 17:06 | ESCONSULT_ITS ---
Tele Neuro Consultation Consultation Date 03/02/24 Most Recent Vital Signs Last Vital Signs Temp 101.3 F H 03/02/24 16:34 Pulse 112 H 03/02/24 16:34 Resp 21 H 03/02/24 16:34 BP 163/130 H 03/02/24 16:34 Pulse Ox 99 03/02/24 16:34 O2 Del Method Nasal Cannula 03/02/24 16:34 O2 Flow Rate 4 03/02/24 16:34 Laboratory-Coagulation Panel PT 11.9 Seconds (9.0-12.2) 03/02/24 15:11 INR 1.1 (0.9-1.3) 03/02/24 15:11 APTT 32.0 Seconds (22.0-36.0) D 03/02/24 15:11 Consultation Narrative [facility] Tele[facility] Patient Name:???Brock Mcintyre Date of :???1955 Identification Number:??? Date of Service:???03/02/2024 15:08:46 Diagnosis:?G93.41 - Encephalopathy Metabolic Impression: ?68 year old man with seizure hx, now here with AMS. ?Had a seizure 1300, and then had L sided weakness around 1300. ?He had a recent admission for possible seizure versus stroke, received thrombolytics:02/22. NIHSS 19. Not a candidate for thrombolytics, given post ictal, other etiology and recent thrombolytics. ?Admit for MR brain, tele, stroke workup Neurology following along. ?Keppra increase to 1000mg bid. ?MR brain, tele, stroke workup. Infectious/metabolic workup. ?Neurology following along. Our recommendations are outlined below. Recommendations: ? Stroke/Telemetry Floor ? Neuro Checks ? Bedside Swallow Eval ? DVT Prophylaxis ? IV Fluids, Normal Saline ? Head of Bed 30 Degrees ? Euglycemia and Avoid Hyperthermia (PRN Acetaminophen) ? Initiate dual antiplatelet therapy with Aspirin 81 mg daily and Clopidogrel 75 mg daily. ? Antihypertensives PRN if Blood pressure is greater than 220/120 or there is a concern for End organ damage/contraindications for permissive HTN. If blood pressure is greater than 220/120 give labetalol PO or IV or Vasotec IV with a goal of 15% reduction in BP during the first 24 hours. Sign Out: ? Discussed with Emergency Department Provider Advanced Imaging: Advanced imaging has been ordered. Results pending. Metrics: Last Known Well: 03/02/2024 13:00:00 Dispatch Time: 03/02/2024 15:08:46 Arrival Time: 03/02/2023 15:09:00 Initial Response Time: 03/02/2024 15:11:45Symptoms: AMS. Initial patient interaction: 03/02/2024 15:19:51 NIHSS Assessment Completed: 03/02/2024 15:30:02Patient is not a candidate for Thrombolytic. Thrombolytic Medical Decision: 03/02/2024 15:30:02Patient was not deemed candidate for Thrombolytic because of following reasons: other diagnosis suspected Post seizure. Significant head trauma or stroke in previous 3 months . I personally Reviewed the CT Head and it Showed hypodensity, posterior parietal may represent incidental meningioma Primary Provider Notified of Diagnostic Impression and Management Plan on: 03/02/2024 15:29:52 History of Present Illness:Patient is a 68 year old Male. Patient was brought by EMS for symptoms of AMS. 68 year old man with seizure hx, now here with AMS. Had a seizure 1300, and then had L sided weakness around 1300. He had a recent admission for possible seizure versus stroke, received thrombolytics:02/22. NIHSS 19. Not a candidate for thrombolytics,given post ictal, other etiology and recent thormbolytics. Past Medical History: ?Seizures Other PMH:? phenytoin 100mg tid, clonazepam, zonisamide 300mg bid, Keppra 750mg bid Medications: No Anticoagulant use? Antiplatelet use:?Yes?ASA and plavix Reviewed EMR for current medications Allergies:? Reviewed Social History: Unable To Obtain Due To Patient Status :?Patient Cannot Speak Family History: There Is Family History Of:non Family History Cannot Be Obtained Because:Patient Cannot Speak ROS : 14 Points Review of Systems was performed and was negative except mentioned in HPI. Past Surgical History: There Is No Surgical History Contributory To Today?s Visit Examination: BP(138/98),?Pulse(95),?Blood Glucose(134) 1A: Level of Consciousness - Alert; keenly responsive?+ 0 1B: Ask Month and Age - Aphasic?+ 2 1C: Blink Eyes & Squeeze Hands - Performs Both Tasks?+ 0 2: Test Horizontal Extraocular Movements - Normal?+ 0 3: Test Visual Oneal - No Visual Loss?+ 0 4: Test Facial Palsy (Use Grimace if Obtunded) - Normal symmetry?+ 0 5A: Test Left Arm Motor Drift - No Movement?+ 4 5B: Test Right Arm Motor Drift - No Drift for 10 Seconds?+ 0 6A: Test Left Leg Motor Drift - No Movement?+ 4 6B: Test Right Leg Motor Drift - No Movement?+ 4 7: Test Limb Ataxia (FNF/Heel-Powell) - Does Not Understand?+ 0 8: Test Sensation - Normal; No sensory loss?+ 0 9: Test Language/Aphasia - Mute/Global Aphasia: No Usable Speech/Auditory Comprehension?+ 3 10: Test Dysarthria - Severe Dysarthria: Unintelligble Slurring or Out of Proportion to Aphasia?+ 2 11: Test Extinction/Inattention - No abnormality?+ 0 NIHSS Score:?19 Pre-Morbid Modified Hunt Scale:0 Points = No symptoms at all Spoke with :?Devon Lyn-CREDIT RISK MANAGEMENT DIRECTOR This consult was conducted in real time using interactive audio and video technology. Patient was informed of the technology being used for this visit and agreed to proceed. Patient located in hospital and provider located at home/office setting. Patient is being evaluated for possible acute neurologic impairment and high probability of imminent or life-threatening deterioration. I spent total of 35 minutes providing care to this patient, including time for face to face visit via telemedicine, review of medical records, imaging studies and discussion of findings with providers, the patient and/or family. Dr Linus Urena [facility] For Inpatient follow-up with [facility] physician please call [facility] at . As we are not an outpatient service for any post hospital discharge needs please contact the hospital for assistance. If you have any questions for the [facility] physicians or need to reconsult for clinical or diagnostic changes please contact us via [facility] at .
--- NOTE | 2024-03-02 17:16 | PC.NURSE ---
Dr. Ramos at bedside attempting ivl.
--- NOTE | 2024-03-02 17:21 | PC.NURSE ---
Bear Warmer applied to patient per Dr. Ramos's order.
[2024-03-02] MEDS: levETIRAcetam INJ 100 MG/ML VIAL 5ML 1000 MG IVP (17:54)
[2024-03-02] MEDS: ONDANSETRON INJ 2 MG/ML INJ 2 ML 4 MG IV (17:54)
--- NOTE | 2024-03-02 18:03 | PC.NURSE ---
at bedside, patient saying a few words, per states patient usually postictal for awhile after he has a sz. skim warm dry and pink, call light within reach, patient and made aware of plan of care.
--- NOTE | 2024-03-02 18:45 | PC.NURSE ---
Called to bedside per thinks patient is having a seizure, patient eyes are open, looking around, making eye contact, per states patient's eye brows twitch, when he has a seizure, eyebrow twitching noted, provider called go bedside
[2024-03-02] MEDS: LORazepam 2 MG/ML VIAL 1 MG IVP (18:54)
--- NOTE | 2024-03-02 19:07 | XR_ITS ---
Examination: AP chest single view Technique one AP portable semiupright chest single view Exam date and time: March 02, 2024 1917 hrs. Comparison December 26, 2012 Indications: Sepsis alert today Findings: Minor prominence left ventricle Ectatic thoracic aorta Mild vascular congestion. No lobar pneumonia Pulse generator and neural transmitter wires left neck Impression: Mild vascular congestion No lobar pneumonia
--- NOTE | 2024-03-02 19:07 | EKG_ITS ---
[facility] Test Date: 2024-03-02 Pat Name: ANGELA FAIRCHILD Department: Room: - Gender: Male Leather Sprayer: : [id number] Requested By: Devon Araujo Order Number: [id number] Reading MD: Devon Araujo Measurements Intervals [place] Rate: 112 P: 44 NV: 194 QRS: 71 QRSD: 91 T: 24 QT: 332 QTc: 454 Interpretive Statements SINUS TACHYCARDIA WITH OCCASIONAL ECTOPIC PREMATURE COMPLEXES POSSIBLE RIGHT ATRIAL ENLARGEMENT [0.25mV P WAVE] LEFT ATRIAL ENLARGEMENT [-0.15mV P WAVE IN V1/V2] ST ELEVATION, PROBABLY EARLY REPOLARIZATION [ST ELEVATION WITH NORMALLY INFLECTED T WAVE] MARKED T-WAVE ABNORMALITY, CONSIDER ANTERIOR ISCHEMIA [-0.5+ mV T WAVE IN V3/V4] WARNING: DATA QUALITY MAY AFFECT INTERPRETATION Compared to ECG 02/18/2024 08:55:32 Atrial abnormality now present ST (T wave) deviation now present Early repolarization now present T-wave abnormality now present Possible ischemia now present Sinus rhythm no longer present Sinus arrhythmia no longer present First degree AV block no longer present /store/S0/[id number]
[2024-03-02] MEDS: ACETAMINOPHEN SUPP 650 MG SUPP PR (19:23)
[2024-03-02] MEDS: PHENYTOIN 50 MG/ML 1000 MG IV (19:46)
[2024-03-02 19:49] LABS: Collection Type, Urine Catheter
[2024-03-02 19:58] LABS: Lactate (Lactic Acid) 1.1 mMol/L (0.4-2.0)
[2024-03-02 20:02] LABS: Basophils # (Auto) 0.1 Thou/mm3 (0.0-0.2); Basophils % (Auto) 0 % (0-2.5); Eosinophils % (Auto) 0 % (0-10); Hematocrit 45.5 % (41.0-53.0); Hemoglobin 15.4 g/dL (13.5-16.0); Immature Granulocytes % (Auto) 1 % (0-0); Immature Granulocytes Auto 0.25 Thou/mm3 (0.00-0.00); Lymphocytes # (Auto) 0.8 Thou/mm3 (1.0-4.8); Lymphocytes % (Auto) 3 % (10-50); Mean Corpuscular HGB Conc 33.8 g/dl (31.0-37.0); Mean Corpuscular Hemoglobin 32.1 pg (25.0-35.0); Mean Corpuscular Volume 95 fL (80-100); Monocytes # (Auto) 2.2 Thou/mm3 (0.0-0.8); Monocytes % (Auto) 8 % (0-12); Neutrophils # (Auto) 23.1 Thou/mm3 (1.8-7.7); Neutrophils % (Auto) 88 % (37-80); Nucleated Red Blood Cell % 0 /100 WBC (0); Platelet Count 263 Thou/mm3 (140-440); RDW Standard Deviation 45.1 fL (35.1-43.9); White Blood Count 26.3 Thou/mm3 (3.8-10.6)
[2024-03-02 20:17] LABS: B-Type Natriuretic Peptide 59 pg/mL (0-100)
[2024-03-02 20:22] LABS: Alanine Aminotransferase 14 U/L (10-49); Albumin, Serum 4.5 gm/dL (3.4-4.8); Albumin/Globulin Ratio 1.7 (1.2-2.2); Alkaline Phosphatase 102 U/L (46-116); Anion Gap 9 (7-16); Aspartate Amino Transferase 13 U/L (0-34); BUN/Creatinine Ratio 20 Ratio (12-20); Bilirubin,Total 0.6 mg/dL (0.3-1.2); Blood Urea Nitrogen 20 mg/dL (9-23); Calcium 9.5 mg/dL (8.3-10.6); Calcium (Corrected) 9.5 mg/dL (8.5-10.1); Carbon Dioxide 22.6 mMol/L (20.0-31.0); Chloride 104 mMol/L (98-107); Estimated Creatinine Clearance 92.3 mL/min (>60); Globulin 2.7 gm/dL (2.3-3.5); Glucose 118 mg/dL (74-106); LDH (Lactate Dehydrogenase) 145 U/L (120-246); Lipase 30 U/L (12-53); Magnesium 1.9 mg/dL (1.6-2.6); Osmolality,Calculated 275 (275-295); Phosphorous 3.1 mg/dL (2.4-5.1); Potassium 3.9 mMol/L (3.4-5.1); Sodium 136 mMol/L (136-145); Total Protein 7.2 gm/dL (5.7-8.2); Troponin I < 0.020 ng/mL (0.0-0.045); eGFR > 60 See Note
[2024-03-02 20:26] LABS: Procalcitonin 0.59 ng/ml (0.0-0.49)
[2024-03-02 20:33] LABS: Bilirubin,Urine Negative (Negative); Blood,Urine 3+ (Negative); Clarity,Urine Clear (Clear/Hazy); Color,Urine Yellow (Lt Yel-Yel); Glucose, Urine Negative (Negative); Ketones,Urine 2+ (Negative); Leukocyte Esterase,Urine Positive (Negative); Nitrite,Urine Negative (Negative); Protein,Urine 1+ (Neg - Trace); RBC,Urine 109 /hpf (0-3); Squamous Epithelial Cell,Urine 1 /hpf (0-5); WBC,Urine 103 /hpf (0-5)
[2024-03-02 20:35] LABS: Specific Gravity,Urine > 1.035 (1.001-1.035)
[2024-03-02] MEDS: SODIUM CHLORIDE 0.9% 1000 ML 1,000 ML 999 ML IV (20:45)
[2024-03-02] MEDS: cefTRIAXone/D5w 1gm IV premix 50 ML IV (21:14)
--- NOTE | 2024-03-02 21:40 | PD.RESHP ---
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 Per report patient was thought to have a seizure with eye twitching and was altered afterward, was found to have left-sided weakness however it is unclear whether this is worsening weakness as patient had residual left-side weakness from his recent stroke. Therefore patient was brought to the ED and a stroke alert was called. History obtained from at bedside as patient unable to answer questions. states that at the facility yesterday he was conversational. Per he has not had a seizure since the last hospitalization 02/18/2024. Patient currently is wheelchair bound. He has a long history of seizures and is on 4 anti-epileptics, followed by Dr. Vences. Today while in the ED at the bedside noted again seizure-like activity around 6:50 pm which includes flickering eyebrows and repetitive language followed by postictal state. Patient was then given lorazepam 1 mg x1 and phenytoin 1000 mg x1. ED Course: -Initial vitals were BP 138/98, HR 94, RR 22, Temp 101.3, O2 98% on room air -EKG showed rate 103 and afib with RvR (new) -Labs significant for WBC 23.5->26.3 with neutrophilic shift, normal CMP. Procal 0.59. Lactic acid normal at 1.1. -CXR showed mild vascular congestion, no lobar pneumonia -UA showed positive leukocyte esterase, 109 RBC, 103 WBC, no bacteria. Per ED staff patient had traumatic in & out for sample. -CT head showed negative for acute hemorrhage, mildly hyperdense area in the posterior right parietal lobe, axial image 8, measuring 20 mm, which may be prominent sagittal sinus, small hyperdense mass at the convexity not excluded, such as incidental meningioma -CTA head/neck showed old thyroid nodules, otherwise negative -TeleNeuro evaluated patient, NIHSS 19, not a thrombolytic candidate due to recent tPA administration 02/18/2024 -In the ED, patient was given ondansetron 4 mg IV x1, levetiracetam 1000 mg IV x1, lorazepam 1 mg IV x1, acetaminophen 650 mg TX x1, phenytoin 1000 mg IV x1, 1 L NS, ceftriaxone 1g x1 -Patient was admitted for altered mental status secondary to seizure most likely secondary to sepsis, and for rule out of new ischemic stroke Review of Systems Review of systems otherwise negative except what is mentioned above. 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 on 02/18/2024 with residual left-sided deficits Family History: Noncontributory Surgical History: Vasectomy Social History: Negative history of smoking, denies current alcohol use, denies recreational drug use Current Medications: levetiracetam 1500 mg BID, phenytoin 100 mg TID, zonisamide 300 mg BID, clonazepam 1 mg BID, aspirin 81 mg qday, clopidogrel 75 mg qday, atorvastatin 80 mg qday, pantoprazole 40 mg qday, bisacodyl 10 mg TX (Source: [place]) Allergies: No known drug allergies Exam Vital Signs Temp Pulse Resp BP Pulse Ox O2 Del Method O2 Flow Rate 100.7 F H 94 19 135/76 H 97 Nasal Cannula 2 03/02/24 21:02 03/02/24 20:58 03/02/24 20:58 03/02/24 20:58 03/02/24 20:58 03/02/24 20:58 03/02/24 20:58 Narrative Exam Physical Exam General: Lethargic, however opens eyes to voice, unable to answer questions. HEENT: Normocephalic, atraumatic, mucous membranes moist. Heart: Regular rate and rhythm, no murmurs. Lungs: Clear to auscultation with no wheezing or crackles. Abdomen: Soft, obese, nondistended, nontender, positive bowel sounds. ?No guarding or rebound tenderness. Neurologic: Follows some commands inconsistently. Exam limited due to post-ictal state and recent Ativan and phenytoin administration. Neuro Stroke Exam: -Alert and oriented x0. -Unable to test CN II-XII. -Unable to test visual schmid. -Normal fluent speech. -No facial droop. -Strength 5/5 right arm, 5/5 right tire manager. -Strength 0/5 left arm, 0/5 left tire manager. -Strength 0/5 left lower extremity. -Unable to test sensation. -Unable to test [id number], pddg-rj-[id number]. Extremities: No edema. Skin: No rash or ecchymoses. Results: Labs 03/03/24 05:10 03/02/24 19:53 Labs: Short CBC 03/02/24 03/02/24 Range/Units 15:11 19:53 WBC 23.5 H 26.3 H (3.8-10.6) Thou/mm3 Hgb 15.8 15.4 (13.5-16.0) g/dL Hct 46.2 45.5 (41.0-53.0) % Plt Count 266 263 (140-440) Thou/mm3 BMP 03/02/24 03/02/24 15:11 19:53 Sodium 137 136 Potassium 4.1 3.9 Chloride 106 104 Carbon Dioxide 21.3 22.6 BUN 19 20 Creatinine 1.2 1.0 Glucose 132 H 118 H Calcium 9.8 9.5 Cardiac Enzymes 03/02/24 03/02/24 Range/Units 15:11 19:53 Troponin I < 0.020 < 0.020 (0.0-0.045) ng/mL Liver Function 03/02/24 03/02/24 Range/Units 15:11 19:53 Total Bilirubin 0.6 0.6 (0.3-1.2) mg/dL AST 15 13 (0-34) U/L ALT 12 14 (10-49) U/L Alkaline Phosphatase 107 102 (46-116) U/L Albumin 4.5 4.5 (3.4-4.8) gm/dL Urine 03/02/24 Range/Units 19:24 Urine Color Yellow (Lt Yel-Yel) Urine Clarity Clear (Clear/Hazy) Urine pH 6.0 (5.0-7.0) Ur Specific [place] > 1.035 H (1.001-1.035) Urine Protein 1+ A (Neg - Trace) Urine Glucose (UA) Negative (Negative) Quality Measures Quality Measures none Advance care planning discussed with:: spouse Medications Home Medications and Allergies Home Medications ?Medication ?Instructions ?Recorded ?Confirmed ?Type zonisamide 100 mg capsule 300 mg PO BID Seizures #0 caps 12/23/12 03/02/24 History clonazepam 1 mg tablet 1 mg PO BID Seizures 02/18/24 03/03/24 History phenytoin sodium extended 100 mg 100 mg PO TID 02/18/24 03/02/24 History capsule levetiracetam 750 mg tablet 1,500 mg PO BID 03/02/24 03/02/24 History bisacodyl 10 mg rectal suppository 10 mg TX DAILY 03/03/24 03/03/24 History (Dulcolax (bisacodyl)) Allergies Allergy/AdvReac Type Severity Reaction Status Date / Time No Known Allergies Allergy Verified 11/23/23 09:09 Visit Medications Acetaminophen (Acetaminophen Supp 650 Mg Supp) 650 mg TX Q6HR PRN PRN Reason: Fever > 100.4 or Pain 1-10 Stop: 04/01/24 21:24 Ondansetron HCl (Ondansetron Inj 2 Mg/Ml Inj 2 Ml) 4 mg IV Q4HR PRN PRN Reason: NAUSEA OR VOMITING Stop: 04/01/24 15:09 Last Admin: 03/02/24 17:54 Dose: 4 mg Discontinued Medications Acetaminophen (Acetaminophen Supp 650 Mg Supp) 650 mg TX X1 ONE Stop: 03/02/24 19:09 Last Admin: 03/02/24 19:23 Dose: 650 mg Sodium Chloride (Ns) 1,000 mls @ 999 mls/hr IV .Q1H1M ONE Stop: 03/02/24 21:35 Last Admin: 03/02/24 20:45 Dose: 999 mls/hr Ceftriaxone Sodium/Dextrose (Rocephin/D5w 1gm Iv Premix) 50 mls @ 100 mls/hr IV X1 ONE Stop: 03/02/24 21:07 Last Admin: 03/02/24 21:14 Dose: 100 mls/hr Levetiracetam (Levetiracetam Inj 100 Mg/Ml Vial 5ml) 1,000 mg IVP X1 ONE Stop: 03/02/24 15:44 Last Admin: 03/02/24 17:54 Dose: 1,000 mg Lorazepam (Lorazepam 2 Mg/Ml Vial) 1 mg IVP X1 ONE Stop: 03/02/24 18:45 Last Admin: 03/02/24 18:54 Dose: 1 mg Phenytoin Sodium (Phenytoin Inj 50 Mg/Ml Vial 5 Ml) 1,000 mg IV X1 ONE Stop: 03/02/24 18:45 Last Admin: 03/02/24 19:46 Dose: 1,000 mg Assessment & Plan Plan 68-year-old male with past medical history of seizure disorder since childhood, recent admission at [facility] for 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 #Breakthrough seizures #History of seizure disorder Patient had breakthrough seizure at facility with a second seizure witnessed by in ED, followed by postictal state. Received levetiracetam 1000 mg IV x1, lorazepam 1 mg IV x1, phenytoin 1000 mg IV x1, 1 L NS. Per chart review patient is well known by Neurology Dr. Vences. 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 Previous history of reported daily seizures. -Neurology consulted -Started levetiracetam 1500 mg IV BID -Resume PO home medications when able to swallow: Phenytoin 100 mg TID, zonisamide 300 mg BID, clonazepam 1 mg BID -Seizure precautions -Aspiration precautions -NPO until passes swallow screen -Speech therapy evaluation #Acute ischemic stroke rule out #History of right caudate nucleus ischemic stroke with left-sided deficits s/p tPA on 02/18/2024 Patient presented with altered mental status, most likely is post-ictal state versus new stroke. No new deficits, he presents with left-sided weakness which has been present since last hospitalization for CVA. CT head negative for acute hemorrhage, mildly hyperdense area in the posterior right parietal lobe, axial image 8, measuring 20 mm, which may be prominent sagittal sinus, small hyperdense mass at the convexity not excluded, such as incidental meningioma CTA head/neck negative -Neurology consulted -Admitted to Telemetry -Maintain euglycemia and normal temperature -Allow for permissive hypertension below 220/120 -Q4H neuro checks -Nurse swallow screen -Speech evaluation -PT evaluation -MRI brain with and without contrast ordered -Continue aspirin 81 mg daily -Continue atorvastatin 80 mg HS daily #Sepsis secondary to UTI #Leukocytosis #Fever Patient met SIRS criteria 06/03 with temperature 101.3, tachycardia, tachypneia, and leukocytosis. UA is showing positive leukocyte esterase, 109 RBC, 103 WBC, however no bacteria. Procalcitonin was 0.59. CXR was clear. -Started ceftriaxone IV -Urine cultures pending -Blood cultures pending #New onset afib with RvR On admission EKG showed rate 103 and afib with RvR, not seen on prior EKGs. Most likely in the setting of sepsis. Patient self-converted, improved after IV fluids. CHADS-Vasc is 4 points If patient has further episodes of afib despite treatment consider anticoagulation -Continuous telemetry -Keep K >4.0 and Mag >2.0 -Continue treatment of sepsis as above DVT prophylaxis: Heparin 5,000 U subQ GI prophylaxis: Pantoprazole 40 mg PO daily Diet: NPO Cohen: None Lines: Peripheral IV Antibiotics: Ceftriaxone [03/02/2023- ] CODE STATUS: FULL Reason for hospitalization: Breakthrough seizure, sepsis, CVA rule out Patient plan of care was discussed with the attending physician, Dr. Parra. Mary Felipe, PGY-2 Attending Provider Attestation/Addendum I discussed with and supervised the resident physician who took care of this patient. I agree with the assessment and plan as above. Patient was seen and evaluated in the ER bed #3. He will be admitted for management of breakthrough seizure. The patient was given IV Keppra and IV Dilantin by ER EXTENSION WORK INSTRUCTOR. He has no fever. No report of neck stiffness. He has leukocytosis. The patient received IV ceftriaxone in the ER. Consider LP. Check for therapeutic anticonvulsant levels.
--- NOTE | 2024-03-02 23:01 | PC.NURSE ---
REPORT GIVEN TO CARLOS KENNY AT TELE.
[2024-03-02 23:02] LABS: Amphetamine/Methamp Scrn,U Negative (Negative); Barbiturate Screen,Urine Negative (Negative); Benzodiazepines Screen,Urine Negative (Negative); Benzoylecgonine Screen, Ur Negative (Negative); Fentanyl Screen,Urine Negative (Negative); Opiate Screen,Urine Negative (Negative); THC Screen,Urine Negative (Negative)
[2024-03-02] MEDS: levETIRAcetam INJ 100 MG/ML VIAL 5ML 1500 MG IVP (23:41)
[2024-03-03] VITALS (9 sets, daily range): BP systolic 104–144; BP diastolic 71–85; PULSE 82–150; RESP 18–25; TEMP 36.2–37.4; O2SAT 93–99; BMI 29.2; BMI 12.0
--- NOTE | 2024-03-03 | XR_ITS ---
Examinations: MRI Brain without intravenous contrast. MRA brain without intravenous contrast. MRA carotids without intravenous contrast 3-D vascular reconstructions Date and time of exam: March 03, 2024 1223 hours Comparison February 19, 2024 INDICATIONS: CT stroke alert March 02, 2024, onset focal neurologic deficit, brain MRI February 19, 2024 25 mm acute infarct right caudate nucleus Technique: Multiple axial and sagittal images of the brain have been obtained MRA brain carotid images without contrast obtained, including 3-D postprocessing, vascular maximum intensity projection images Findings: Sellaturcica is not enlarged. The optic chiasm and infundibular stalk are not remarkable. Prepontine and interpeduncular cisterns are not enlarged. No localized enlargement of the medulla or jessica. Fourth ventricle and cerebellar tonsils normal in position. Subacute hemorrhage is not seen. Fourth ventricle is midline. Mass in the cerebellopontine angle region is not evident. 7th and 8th nerve complexes exhibits symmetry. Globes are symmetrical with no retro-orbital mass. Increased white matter signal noted right caudate nucleus Diffusion-weighted images demonstrate again 25 mm infarct right caudate nucleus, no new infarcts Mass-effect upon the ventricular system is not identified. MRA carotid images no carotid stenoses. MRA brain images no large vessel occlusions Impression: Stable 25 mm infarct right caudate pelvis
[2024-03-03] MEDS: ASPIRIN 300 MG SUPP PR (03:43)
[2024-03-03 06:05] LABS: Basophils # (Auto) 0.1 Thou/mm3 (0.0-0.2); Basophils % (Auto) 0 % (0-2.5); Eosinophils # (Auto) 0.1 Thou/mm3 (0.0-0.5); Eosinophils % (Auto) 0 % (0-10); Hematocrit 45.1 % (41.0-53.0); Hemoglobin 15.1 g/dL (13.5-16.0); Immature Granulocytes % (Auto) 2 % (0-0); Immature Granulocytes Auto 0.73 Thou/mm3 (0.00-0.00); Lymphocytes # (Auto) 0.7 Thou/mm3 (1.0-4.8); Lymphocytes % (Auto) 2 % (10-50); Mean Corpuscular HGB Conc 33.5 g/dl (31.0-37.0); Mean Corpuscular Hemoglobin 32.1 pg (25.0-35.0); Mean Corpuscular Volume 96 fL (80-100); Monocytes # (Auto) 2.8 Thou/mm3 (0.0-0.8); Monocytes % (Auto) 8 % (0-12); Neutrophils # (Auto) 29.5 Thou/mm3 (1.8-7.7); Neutrophils % (Auto) 87 % (37-80); Nucleated Red Blood Cell % 0 /100 WBC (0); Platelet Count 246 Thou/mm3 (140-440); RDW Standard Deviation 46.5 fL (35.1-43.9); White Blood Count 33.8 Thou/mm3 (3.8-10.6)
[2024-03-03 07:08] LABS: Alanine Aminotransferase 12 U/L (10-49); Albumin, Serum 4.2 gm/dL (3.4-4.8); Albumin/Globulin Ratio 1.6 (1.2-2.2); Alkaline Phosphatase 96 U/L (46-116); Anion Gap 10 (7-16); Aspartate Amino Transferase 17 U/L (0-34); BUN/Creatinine Ratio 19 Ratio (12-20); Bilirubin,Total 0.4 mg/dL (0.3-1.2); Blood Urea Nitrogen 19 mg/dL (9-23); Calcium 10.8 mg/dL (8.3-10.6); Calcium (Corrected) 10.8 mg/dL (8.5-10.1); Carbon Dioxide 22.7 mMol/L (20.0-31.0); Chloride 108 mMol/L (98-107); Estimated Creatinine Clearance 90.6 mL/min (>60); Globulin 2.6 gm/dL (2.3-3.5); Glucose 128 mg/dL (74-106); Magnesium 2.2 mg/dL (1.6-2.6); Osmolality,Calculated 285 (275-295); Potassium 4.3 mMol/L (3.4-5.1); Sodium 141 mMol/L (136-145); Total Protein 6.8 gm/dL (5.7-8.2); eGFR > 60 See Note
[2024-03-03 07:24] LABS: Phosphorous 2.8 mg/dL (2.4-5.1)
--- NOTE | 2024-03-03 08:49 | PCS.ST ---
Swallow Eval completed. See report for details. Persisitng mild oral dysphagia s/p recent stroke. Dysphagia 3/Reg liquids with precautions.
--- NOTE | 2024-03-03 09:09 | PC.SS ---
Patient Brock Mcintyre is a 68 Year old male admitted for Seizure,Sepsis. SS contacted patient's , Diane Mcintyre to complete initial assessment. She reports she is patient's decision maker [phone]. Patient is from [facility] and has been there since Feb 22 for PT only. Patient utilizes a wheelchair to assist with ambulation. Diane expressed that patient and herself would like patient to discharge to another facility. SS informed her SS would be submitting and would contact her to provide choices. Discharge Plan; SNF Next of Kin: , Diane Mcintyre PCP: Michael Fulton
[2024-03-03] MEDS: levETIRAcetam INJ 100 MG/ML VIAL 5ML 1500 MG IVP ×2 (09:11→21:39)
[2024-03-03] MEDS: HEPARIN SOD INJ 5000 UNIT/ML VIAL SC ×2 (09:11→21:49)
[2024-03-03] MEDS: clonazePAM 0.5 MG TABLET 1 MG PO ×2 (09:11→21:38)
[2024-03-03] MEDS: ZONISAMIDE 100 MG CAPSULE 300 MG PO ×2 (09:12→21:38)
[2024-03-03] MEDS: ASPIRIN EC 81 MG TABEC PO (09:12)
[2024-03-03] MEDS: ATORVASTATIN CALCIUM 20 MG TABLET 80 MG PO (09:12)
[2024-03-03] MEDS: PANTOPRAZOLE 40 MG TABLET PO (09:12)
[2024-03-03] MEDS: CLOPIDOGREL BISULFATE 75 MG TABLET PO (09:13)
--- NOTE | 2024-03-03 09:15 | PC.SS ---
Addendum entered by Jennifer Mckeon 03/03/24 14:31: SS was informed by CANDIS Malhotra that patient was needing Acute Rehab. SS followed up with patient and patient's and they reported they don't want patient to discharge out of [place] due to patient's not able to drive far out. Preference is still [facility]. Addendum entered by Jennifer Mckeon 03/03/24 13:50: SS contacted patient's to present SNF's. She reported they would like [facility]. SS will contact [facility]. Patient is able to discharge to [facility] when medically cleared. SS follow up note. Original Note: SS follow up note; SS submitted SNF inquiry through [employer] platform.
[2024-03-03 10:55] LABS: Creatine Kinase 52 U/L (34-171)
[2024-03-03] MEDS: LORazepam 2 MG/ML VIAL 1 MG IVP ×2 (12:04→15:26)
[2024-03-03] MEDS: MORPHINE SULF INJ 10 MG/ML VIAL IVP (12:05)
--- NOTE | 2024-03-03 12:40 | ESPR_ITS ---
<Statement entered by Simon Pillai MD - 03/03/24 13:48> Patient seen and assessed at bedside this morning. Patient pending MRI. Patient continues to have left-sided weakness and left-sided facial droop. Will continue with phenytoin, Keppra, and as needed Ativan for breakthrough seizures. Patient on IV antibiotics for UTI. Pending cultures. Case discussed with team. Simon Pillai MD PGY3 Documentation for date of: 03/03/24 Subjective Subjective Interval history: 03/03: No acute events overnight patient denies any seizure-like activity since coming to hospital. Vital signs are stable. White count increased this a.m., 33.8 from 26.3. Patient denies any recent fever, nausea/vomiting, chest pain/productive sputum, abdominal pain, changes in urinary or bowel symptoms. at bedside states that patient appears to have returned to his neurological baseline. His left-sided weakness appears at his baseline Currently pending MRI, blood cultures. Neurology not available until 03/06 regarding adjustment to antiseizure medication. Mr. Mcintyre does follow with Dr. Vences outpatient. Exam Vital Signs Temp Pulse Resp BP Pulse Ox O2 Del Method O2 Flow Rate 97.9 F 87 20 105/75 93 L Room Air 2 03/03/24 08:00 03/03/24 12:00 03/03/24 08:00 03/03/24 08:00 03/03/24 08:00 03/03/24 08:00 03/03/24 00:00 Narrative Exam GENERAL: NAD, NC/AT, responsive/cooperative. A&Ox3 NEURO: traffic operator grossly intact, Strength 5/5 RUE and RLE. Strength 0/5 LUE, 1/5 LLE. Left sided mild facial drooping noted- at bedside states that this is his baseline. Speech comprehensible but slightly hard to understand due to left facial weakness. HEENT: Moist mucosa. Eyes open, symmetrical, & clear CARDIO: No chest pain on palpation. Heart RRR, no obvious murmurs PULM: No noted coughing/dyspnea. Lungs CTA B/L, no R/W/R GI: Abdomen soft, nondistended, no pain on palpation. BSx4 SKIN/MSK/EXT: No wounds/rashes/edema/amputations, no pain on palpation. Pedal pulses present B/L Objective Labs 03/04/24 04:26 03/03/24 15:01 Labs: Laboratory Results - last 24 hr 03/02/24 03/02/24 03/02/24 15:11 19:24 19:53 WBC 23.5 H 26.3 H RBC 4.90 4.80 Hgb 15.8 15.4 Hct 46.2 45.5 MCV 94 95 MCH 32.2 32.1 MCHC 34.2 33.8 RDW Std Deviation 44.7 H 45.1 H Plt Count 266 263 Neut % (Auto) 85 H 88 H Lymph % (Auto) 4 L 3 L Bland % (Auto) 10 8 Eos % (Auto) 0 0 Baso % (Auto) 0 0 Neut # (Auto) 20.0 H 23.1 H Lymph # (Auto) 1.0 0.8 L Bland # (Auto) 2.2 H 2.2 H Eos # (Auto) 0.0 0.0 Baso # (Auto) 0.0 0.1 Immature Gran # (Auto) 0.20 H 0.25 H Absolute Nucleated RBC 0.00 0.00 Immature Gran % 1 H 1 H Nucleated RBC % 0 0 PT 11.9 INR 1.1 APTT 32.0 D Sodium 137 136 Potassium 4.1 3.9 Chloride 106 104 Carbon Dioxide 21.3 22.6 Anion Gap 10 9 BUN 19 20 Creatinine 1.2 1.0 Estim Creat Clear Calc Not Performed. 92.3 eGFR > 60 > 60 BUN/Creatinine Ratio 16 20 Glucose 132 H 118 H Calculated Osmolality 278 275 Lactic Acid 1.1 Calcium 9.8 9.5 Corrected Calcium 9.8 9.5 Phosphorus 3.1 Magnesium 1.9 1.9 Total Bilirubin 0.6 0.6 AST 15 13 ALT 12 14 Alkaline Phosphatase 107 102 Lactate Dehydrogenase 145 Total Creatine Kinase Troponin I < 0.020 < 0.020 B-Natriuretic Peptide 59 Total Protein 7.2 7.2 Albumin 4.5 4.5 Globulin 2.7 2.7 Albumin/Globulin Ratio 1.7 1.7 Lipase 30 Procalcitonin 0.59 H Ur Collection Type Catheter Urine Color Yellow Urine Clarity Clear Urine pH 6.0 Ur Specific Haddock > 1.035 H Urine Protein 1+ A Urine Glucose (UA) Negative Urine Ketones 2+ A Urine Blood 3+ A Urine Nitrite Negative Urine Bilirubin Negative Urine Urobilinogen (Auto) 2.0 Ur Leukocyte Esterase Positive Urine RBC 109 H Urine WBC 103 H Ur Squamous Epith Cells 1 Urine Bacteria None Urine Opiates Screen Negative Urine Fentanyl Screen Negative Ur Barbiturates Screen Negative U Amphetamin/Meth Scrn Negative U Benzodiazepines Scrn Negative U Cocaine Metab Screen Negative U Marijuana (THC) Screen Negative HCG (Qual) Negative 03/03/24 05:10 WBC 33.8 H D RBC 4.70 Hgb 15.1 Hct 45.1 MCV 96 MCH 32.1 MCHC 33.5 RDW Std Deviation 46.5 H Plt Count 246 Neut % (Auto) 87 H Lymph % (Auto) 2 L Bland % (Auto) 8 Eos % (Auto) 0 Baso % (Auto) 0 Neut # (Auto) 29.5 H Lymph # (Auto) 0.7 L Bland # (Auto) 2.8 H Eos # (Auto) 0.1 Baso # (Auto) 0.1 Immature Gran # (Auto) 0.73 H Absolute Nucleated RBC 0.00 Immature Gran % 2 H Nucleated RBC % 0 PT INR APTT Sodium 141 Potassium 4.3 Chloride 108 H Carbon Dioxide 22.7 Anion Gap 10 BUN 19 Creatinine 1.0 Estim Creat Clear Calc 90.6 eGFR > 60 BUN/Creatinine Ratio 19 Glucose 128 H Calculated Osmolality 285 Lactic Acid Calcium 10.8 H Corrected Calcium 10.8 H Phosphorus 2.8 Magnesium 2.2 Total Bilirubin 0.4 AST 17 ALT 12 Alkaline Phosphatase 96 Lactate Dehydrogenase Total Creatine Kinase 52 D Troponin I B-Natriuretic Peptide Total Protein 6.8 Albumin 4.2 Globulin 2.6 Albumin/Globulin Ratio 1.6 Lipase Procalcitonin Ur Collection Type Urine Color Urine Clarity Urine pH Ur Specific Haddock Urine Protein Urine Glucose (UA) Urine Ketones Urine Blood Urine Nitrite Urine Bilirubin Urine Urobilinogen (Auto) Ur Leukocyte Esterase Urine RBC Urine WBC Ur Squamous Epith Cells Urine Bacteria Urine Opiates Screen Urine Fentanyl Screen Ur Barbiturates Screen U Amphetamin/Meth Scrn U Benzodiazepines Scrn U Cocaine Metab Screen U Marijuana (THC) Screen HCG (Qual) Quality Measures Quality Measures none Advance care planning discussed with:: patient and spouse Assessment & Plan Assessment Current Active Medications: Generic Name Dose Route Start Last Admin Trade Name Freq PRN Reason Stop Dose Admin Acetaminophen 650 mg 03/02/24 21:25 Acetaminophen Supp 650 Mg Supp LA 04/01/24 21:24 Q6HR PRN Fever > 100.4 or Pain 1-10 Aspirin 81 mg 03/03/24 09:00 03/03/24 09:12 Aspirin Ec 81 Mg Tabec PO 04/02/24 08:59 81 mg QDAY GERARDO Administration Atorvastatin Calcium 80 mg 03/03/24 09:00 03/03/24 09:12 Atorvastatin Calcium 20 Mg Tablet PO 04/02/24 08:59 80 mg QDAY GERARDO Administration Clonazepam 1 mg 03/03/24 09:00 03/03/24 09:11 Clonazepam 0.5 Mg Tablet PO 03/08/24 08:59 1 mg BID GERARDO Administration Clopidogrel Bisulfate 75 mg 03/03/24 09:00 03/03/24 09:13 Clopidogrel Bisulfate 75 Mg Tablet PO 04/02/24 08:59 75 mg QDAY GERARDO Administration Heparin Sodium (Porcine) 5,000 unit 03/03/24 09:00 03/03/24 09:11 Heparin Sod Inj 5000 Unit/Ml Vial SC 03/17/24 08:59 5,000 unit Q12HR GERARDO Administration Ceftriaxone Sodium/Dextrose 50 mls @ 100 mls/hr 03/03/24 21:00 Rocephin/D5w 1gm Iv Premix IV 03/10/24 20:59 DAILY@2100 GERARDO Levetiracetam 1,500 mg 03/02/24 22:30 03/03/24 09:11 Levetiracetam Inj 100 Mg/Ml Vial 5ml IVP 04/01/24 22:29 1,500 mg Q12HR GERARDO Administration Lidocaine 1 patch 03/03/24 08:05 Lidocaine 5% 1 Patch TOP 04/02/24 08:04 UD PRN PAIN Protocol Lorazepam 1 mg 03/03/24 02:47 03/03/24 12:04 Lorazepam 2 Mg/Ml Vial IVP 03/08/24 02:46 1 mg Q2H PRN Administration Breakthrough seizure Ondansetron HCl 4 mg 03/02/24 15:10 03/02/24 17:54 Ondansetron Inj 2 Mg/Ml Inj 2 Ml IV 04/01/24 15:09 4 mg Q4HR PRN Administration NAUSEA OR VOMITING Pantoprazole Sodium 40 mg 03/03/24 09:00 03/03/24 09:12 Pantoprazole 40 Mg Tablet PO 04/02/24 08:59 40 mg QDAY GERARDO Administration Phenytoin 100 mg 03/03/24 06:00 03/03/24 05:07 Phenytoin 100 Mg Capsr PO 04/02/24 05:59 Not Given TID GERARDO Zonisamide 300 mg 03/03/24 09:00 03/03/24 09:12 Zonisamide 100 Mg Capsule PO 04/02/24 08:59 300 mg BID GERARDO Administration Plan 68-year-old male with past medical history of seizure disorder since childhood, recent admission at [facility] for 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 #Breakthrough seizures #History of seizure disorder Patient had breakthrough seizure at facility with a second seizure witnessed by in ED, followed by postictal state. Received levetiracetam 1000 mg IV x1, lorazepam 1 mg IV x1, phenytoin 1000 mg IV x1, 1 L NS. Per chart review patient is well known by Neurology Dr. Vences. 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 Previous history of reported daily seizures. -Dysphagia 3/Reg liquids with precautions per speech -Neurology consulted -Levetiracetam 1500 mg IV BID -Phenytoin 100 mg TID, zonisamide 300 mg BID, clonazepam 1 mg BID -Seizure precautions -Aspiration precautions #Acute ischemic stroke rule out #History of right caudate nucleus ischemic stroke with left-sided deficits s/p tPA on 02/18/2024 Patient presented with altered mental status, most likely is post-ictal state versus new stroke. No new deficits, he presents with left-sided weakness which has been present since last hospitalization for CVA. CT head negative for acute hemorrhage, mildly hyperdense area in the posterior right parietal lobe, axial image 8, measuring 20 mm, which may be prominent sagittal sinus, small hyperdense mass at the convexity not excluded, such as incidental meningioma CTA head/neck negative Nurse swallow screen passed PT- pt will benefit from acute rehab placement after discharge -Neurology consulted- pending -MRI brain with and without contrast ordered- pending -Continue aspirin 81 mg daily -Continue atorvastatin 80 mg HS daily #Sepsis secondary to UTI #Leukocytosis #Fever Patient met SIRS criteria 4/ with temperature 101.3, tachycardia, tachypneia, and leukocytosis. UA is showing positive leukocyte esterase, 109 RBC, 103 WBC, however no bacteria. Procalcitonin was 0.59. CXR was clear. 03/03: VSS stable on exam today, WBC increased to 33.8 from 26.3. Pt denies any new symptoms -Started ceftriaxone IV (03/02- -Urine cultures pending -Blood cultures pending #New onset afib with RvR- appears resolved On admission EKG showed rate 103 and afib with RvR, not seen on prior EKGs. Most likely in the setting of sepsis. Patient self-converted, improved after IV fluids. CHADS-Vasc is 4 points If patient has further episodes of afib despite treatment consider anticoagulation -Continuous telemetry monitoring -Keep K >4.0 and Mag >2.0 -Continue treatment of sepsis as above DVT prophylaxis: Heparin 5,000 U subQ GI prophylaxis: Pantoprazole 40 mg PO daily Diet: NPO Cohen: None Lines: Peripheral IV Antibiotics: Ceftriaxone [03/02/2023- ] CODE STATUS: FULL Reason for hospitalization: Breakthrough seizure, sepsis, CVA rule out Patient plan of care was discussed with the attending physician, Dr. Claros. Rajan Silva DO, PGY-1 Attending Provider Attestation/Addendum I attest that I was physically present for the evaluation, physical examination, lab and imaging review of the patient with the residents. I discussed the case with the residents and agree with the findings and plans of care as documented above. At bedside patient states he is feeling better and does not have new complaints. Patient passed swallow evaluation but appears to be coughing after drinking water and refusing to eat. We will request for re evaluation. MRI only shows stable infract from previous visit. No new seizure episodes. Patient had a rapid response for increased heart rate. Rhythm appears to be A. Flutter. Patient received fluid bolus and metoprolol without improvement. Discussed with cardiology and started Amiodarone drip as recommended. We will continue to monitor closely, awaiting in house neurology consult. Luis Antonio Claros MD
[2024-03-03] MEDS: PHENYTOIN 100 MG CAPSR PO ×2 (13:14→21:38)
--- NOTE | 2024-03-03 13:30 | PC.NURSE ---
erosion control coordinator: Received a call earlier from MRI - pt refused exam citing neck pain. MD Leon informed at this time.
--- NOTE | 2024-03-03 14:16 | EKG_ITS ---
[facility] Test Date: 2024-03-03 Pat Name: ANGELA FAIRCHILD Department: Room: S276A Gender: Male Frame Nailer: LAZARO : 1955 Requested By: Boris Gonzalez Order Number: [id number] Reading MD: Boris Gonzalez Measurements Intervals [place] Rate: 155 P: DC: QRS: 46 QRSD: 105 T: -60 QT: 200 QTc: 321 Interpretive Statements ATRIAL FLUTTER/TACHYCARDIA WITH RAPID VENTRICULAR RESPONSE NONSPECIFIC ST & T-WAVE ABNORMALITY Compared to ECG 03/02/2024 16:43:09 T-wave abnormality now present Atrial fibrillation no longer present Ventricular premature complex(es) no longer present Aberrant conduction of supraventricular beat(s) no longer present ST (T wave) deviation no longer present /store/S0/[id number]/ecg/[id number].pdf
--- NOTE | 2024-03-03 14:43 | EVENTNT_ITS ---
Documentation for date of: 03/03/24 Event Note Event Note: Rapid response called to room for tachycardia in 160s at 14:12. 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 Heart rate 160s. Saturating 97 on room air. Patient asymptomatic, he states that he does not have chest pain/pressure, shortness of breath, change in vision hearing, sweats, fever, abdominal pain. No new symptoms from baseline, patient EKG ordered, shows sinus tachycardia with rate of 160. Ordered CMP, ordered 500 fluid bolus NS. Given metoprolol 5. Heart rate decreased to about 110s after bolus. Contacted Dr. West paleobotanist regarding EKG and Dr. West suspects it to be atrial flutter. Advised to give amiodarone bolus and place on amiodarone drip.
--- NOTE | 2024-03-03 15:00 | PC.SS ---
SS follow up note; Patient is getting Stroke workup and refused MRI.
[2024-03-03] MEDS: SODIUM CHLORIDE 0.9% 500 ML 500 ML 999 ML IV ×2 (15:26→16:06)
[2024-03-03] MEDS: METOPROLOL TARTRATE INJ 1 MG/ML AMP 5 ML 5 MG IVP (15:26)
[2024-03-03 15:57] LABS: Alanine Aminotransferase 13 U/L (10-49); Albumin, Serum 4.1 gm/dL (3.4-4.8); Albumin/Globulin Ratio 1.6 (1.2-2.2); Alkaline Phosphatase 85 U/L (46-116); Anion Gap 10 (7-16); Aspartate Amino Transferase < 10 U/L (0-34); BUN/Creatinine Ratio 20 Ratio (12-20); Bilirubin,Total 0.4 mg/dL (0.3-1.2); Blood Urea Nitrogen 20 mg/dL (9-23); Calcium 9.4 mg/dL (8.3-10.6); Calcium (Corrected) 9.4 mg/dL (8.5-10.1); Carbon Dioxide 18.5 mMol/L (20.0-31.0); Chloride 108 mMol/L (98-107); Estimated Creatinine Clearance 90.6 mL/min (>60); Globulin 2.6 gm/dL (2.3-3.5); Glucose 172 mg/dL (74-106); Osmolality,Calculated 278 (275-295); Sodium 136 mMol/L (136-145); Total Protein 6.7 gm/dL (5.7-8.2); eGFR > 60 See Note
[2024-03-03] MEDS: AMIODARONE 150 MG IVPB 150 MG/100 ML BAG 600 MG IV (18:14)
[2024-03-03] MEDS: AMIODARONE 360 MG IVPB 360 MG/200 ML BAG 33.333 MG IV (18:29)
[2024-03-03] MEDS: cefTRIAXone/D5w 1gm IV premix 50 ML IV (21:38)
--- NOTE | 2024-03-03 22:11 | PD.IMCONS ---
HPI Data of Consult Consult date: 03/03/24 Requesting Physician: Luis Antonio Claros MD Primary Care Provider: Michael Fulton MD Consult Narrative Reason for consult: Evaluation atrial fibrillation rapid heart rate History of present illness: The patient is a 68-year-old male with a longstanding history of previous stroke several years ago hypertension hypercholesterolemia seizure disorder admitted to the hospital seizures again while in the telemetry monitoring today patient developed atrial fibrillation with very rapid ventricular is 160 bpm initially appeared to be atrial flutter 2-1 block also at times A-fib RVR patient was given diltiazem with rate control but remains in A-fib RVR patient not very symptomatic does not complain of any chest pain or shortness of breath. Discussed with the resident recommend IV amiodarone bolus followed by infusion for rate control and possible rhythm control. cc:: cc: Luis Antonio Claros MD Review of Systems Review of Systems Narrative Review of Systems: Cardiovascular palpitations but no chest pain Neurologic history of seizure disorder no active seizures history of stroke with left-sided hemiplegia Rest of the review of system unremarkable Past Medical History Past Medical History NEUROLOGIC: Positive Neurological Disorders, Cerebrovascular Accident, Seizures and Head Trauma CARDIAC: Negative Cardiac Disorders or Congestive Heart Failure RESPIRATORY: Positive Pneumonia; Negative Respiratory Disorders, Chronic Obstructive Pulmonary Disease (COPD) or Asthma GASTROINTESTINAL: Positive Obesity; Negative Gastrointestinal Disorders or Esophageal Varices GENITOURINARY: Negative Genitourinary Disorders or Renal Disease MUSCULOSKELETAL: Negative Musculoskeletal Disorders ENT: Positive Head Trauma ENDOCRINE: Negative Endocrine Disorders, Diabetes Mellitus Type 1 or Diabetes Mellitus Type 2 HEMATOLOGIC: Negative Blood Disorders OTHER HISTORY: Positive Hospitalization, Chicken Pox, Measles and Mumps; Negative Autoimmune Disease, Falls, Blood Transfusions, Anesthesia Reactions or Cancer Surgical History SURGICAL: Positive Vasectomy Social History SMOKING STATUS: Unknown if ever smoked Past Medical History Comments PMH COMMENT: Past Medical History: Seizure disorder, 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 on 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/2024 with residual left-sided deficits Family History: Noncontributory Surgical History: Vasectomy Social History: Negative history of smoking, denies current alcohol use, denies recreational drug use Current Medications: levetiracetam 1500 mg BID, phenytoin 100 mg TID, zonisamide 300 mg BID, clonazepam 1 mg BID, aspirin 81 mg qday, clopidogrel 75 mg qday, atorvastatin 80 mg qday, pantoprazole 40 mg qday, bisacodyl 10 mg DC (Source: Med rec) Allergies: No known drug allergies Meds Home Medications and Allergies Home Medications ?Medication ?Instructions ?Recorded ?Confirmed ?Type zonisamide 100 mg capsule 300 mg PO BID Seizures #0 caps 12/23/12 03/02/24 History clonazepam 1 mg tablet 1 mg PO BID Seizures 02/18/24 03/03/24 History phenytoin sodium extended 100 mg 100 mg PO TID 02/18/24 03/02/24 History capsule levetiracetam 750 mg tablet 1,500 mg PO BID 03/02/24 03/02/24 History bisacodyl 10 mg rectal suppository 10 mg DC DAILY 03/03/24 03/03/24 History (Dulcolax (bisacodyl)) Allergies Allergy/AdvReac Type Severity Reaction Status Date / Time No Known Allergies Allergy Verified 11/23/23 09:09 Exam Vital Signs Temp Pulse Resp BP Pulse Ox O2 Del Method O2 Flow Rate 97.7 F 136 H 25 H 104/85 H 96 Room Air 1 03/03/24 20:00 03/03/24 20:00 03/03/24 20:00 03/03/24 20:00 03/03/24 20:00 03/03/24 20:00 03/03/24 16:00 Narrative Exam The patient is well-nourished male alert awake in no acute discomfort or distress at this time remains A-fib RVR Constitutional Constitutional: no acute distress, average body habitus and chronically ill appearing Routine HEENT Exam Head: Present normocephalic and atraumatic Routine Neck Exam Neck: Present supple, full ROM and normal carotid upstroke Routine Chest/Breast/Axilla Exam Comments: Chest symmetrical no rales or rhonchi lungs are clear Heart S1-S2 irregularly irregular no gallops or murmurs Routine Abdominal Exam Comments: Abdomen benign and soft benign no organomegaly bowel sounds are normal Routine Neurological Exam Comments: The patient appears to have left-sided hemiplegia left facial weakness chronic rest of exam unremarkable Results Labs 03/05/24 05:43 03/05/24 05:43 Labs: Short CBC 03/03/24 Range/Units 05:10 WBC 33.8 H D (3.8-10.6) Thou/mm3 Hgb 15.1 (13.5-16.0) g/dL Hct 45.1 (41.0-53.0) % Plt Count 246 (140-440) Thou/mm3 BMP 03/03/24 03/03/24 05:10 15:01 Sodium 141 136 Potassium 4.3 4.0 Chloride 108 H 108 H Carbon Dioxide 22.7 18.5 L BUN 19 20 Creatinine 1.0 1.0 Glucose 128 H 172 H Calcium 10.8 H 9.4 Cardiac Enzymes 03/03/24 Range/Units 05:10 Total Creatine Kinase 52 D (34-171) U/L Liver Function 03/03/24 03/03/24 Range/Units 05:10 15:01 Total Bilirubin 0.4 0.4 (0.3-1.2) mg/dL AST 17 < 10 (0-34) U/L ALT 12 13 (10-49) U/L Alkaline Phosphatase 96 85 (46-116) U/L Albumin 4.2 4.1 (3.4-4.8) gm/dL Assessment and Plan Assessment and plan (1) Atrial fibrillation with rapid ventricular response: Status: Acute Assessment and plan: The patient has new onset atrial fibrillation rapid ventricular response recommend IV hydration IV bolus and infusion subsequently switched to oral amiodarone once the patient converts to sinus rhythm. [id number] score is more than 5 hence recommend apixaban 5 mg twice daily. Also use diltiazem for rate control. (2) CVA (cerebral vascular accident): Status: Acute Assessment and plan: The patient also has hemiplegia old CVA may or may not be due to A-fib no previous history of A-fib (3) Seizure disorder: Status: Acute Additional Assessment & Plan Additional Plan: Thank you for referring this patient for cardiac assessment will be glad to follow the patient with you
[2024-03-04] VITALS (10 sets, daily range): BP systolic 96–123; BP diastolic 66–77; PULSE 70–145; RESP 17–27; TEMP 35.9–36.9; O2SAT 94–97; BMI 29.5; BMI 29.7; BMI 12.0
[2024-03-04] MEDS: AMIODARONE 360 MG IVPB 360 MG/200 ML BAG 16.667 MG IV ×2 (01:00→12:41)
[2024-03-04] MEDS: PHENYTOIN 100 MG CAPSR PO ×3 (05:27→21:15)
[2024-03-04 05:53] LABS: Basophils # (Auto) 0.1 Thou/mm3 (0.0-0.2); Basophils % (Auto) 0 % (0-2.5); Eosinophils % (Auto) 0 % (0-10); Hemoglobin 13.9 g/dL (13.5-16.0); Immature Granulocytes % (Auto) 2 % (0-0); Immature Granulocytes Auto 0.46 Thou/mm3 (0.00-0.00); Lymphocytes # (Auto) 1.1 Thou/mm3 (1.0-4.8); Lymphocytes % (Auto) 4 % (10-50); Mean Corpuscular HGB Conc 33.9 g/dl (31.0-37.0); Mean Corpuscular Hemoglobin 32.3 pg (25.0-35.0); Mean Corpuscular Volume 95 fL (80-100); Monocytes # (Auto) 1.8 Thou/mm3 (0.0-0.8); Monocytes % (Auto) 6 % (0-12); Neutrophils # (Auto) 26.3 Thou/mm3 (1.8-7.7); Neutrophils % (Auto) 89 % (37-80); Nucleated Red Blood Cell % 0 /100 WBC (0); Platelet Count 232 Thou/mm3 (140-440); RDW Standard Deviation 45.7 fL (35.1-43.9); Red Blood Count 4.31 Miln/mm3 (4.50-5.90); White Blood Count 29.8 Thou/mm3 (3.8-10.6)
[2024-03-04] MEDS: SODIUM CHLORIDE 0.9% 1000 ML 1,000 ML 75 ML IV ×2 (06:15→21:10)
[2024-03-04 06:32] LABS: Alanine Aminotransferase 11 U/L (10-49); Albumin, Serum 3.9 gm/dL (3.4-4.8); Albumin/Globulin Ratio 1.6 (1.2-2.2); Alkaline Phosphatase 80 U/L (46-116); Anion Gap 11 (7-16); Aspartate Amino Transferase < 8 U/L (0-34); BUN/Creatinine Ratio 24 Ratio (12-20); Bilirubin,Total 0.2 mg/dL (0.3-1.2); Blood Urea Nitrogen 24 mg/dL (9-23); Calcium 9.4 mg/dL (8.3-10.6); Calcium (Corrected) 9.5 mg/dL (8.5-10.1); Carbon Dioxide 21.5 mMol/L (20.0-31.0); Chloride 107 mMol/L (98-107); Globulin 2.4 gm/dL (2.3-3.5); Glucose 119 mg/dL (74-106); Osmolality,Calculated 282 (275-295); Potassium 3.5 mMol/L (3.4-5.1); Sodium 139 mMol/L (136-145); Total Protein 6.3 gm/dL (5.7-8.2); eGFR > 60 See Note
[2024-03-04 08:36] LABS: Magnesium 2.1 mg/dL (1.6-2.6)
[2024-03-04] MEDS: CLOPIDOGREL BISULFATE 75 MG TABLET PO (08:57)
[2024-03-04] MEDS: ZONISAMIDE 100 MG CAPSULE 300 MG PO ×2 (08:57→21:11)
[2024-03-04] MEDS: POTASSIUM CHLORIDE 10% 20 MEQ/15 ML UDC 40 MEQ PO (08:57)
[2024-03-04] MEDS: ASPIRIN EC 81 MG TABEC PO (08:57)
[2024-03-04] MEDS: clonazePAM 0.5 MG TABLET 1 MG PO ×2 (08:57→21:11)
[2024-03-04] MEDS: PANTOPRAZOLE 40 MG TABLET PO (08:57)
[2024-03-04] MEDS: ATORVASTATIN CALCIUM 20 MG TABLET 80 MG PO (08:57)
[2024-03-04] MEDS: levETIRAcetam INJ 100 MG/ML VIAL 5ML 1500 MG IVP ×2 (08:58→21:12)
[2024-03-04] MEDS: HEPARIN SOD INJ 5000 UNIT/ML VIAL SC ×2 (09:19→21:12)
--- NOTE | 2024-03-04 10:00 | PC.SS ---
LANE followed up with Opal From [facility] in regards to status on auth. Opal informed SS that she would be contacting patient's insurance for an update.
--- NOTE | 2024-03-04 12:45 | ESPR_ITS ---
<Statement entered by Carol West MD - 03/05/24 15:00> I personally examined the patient evaluated the patient along with resident physician Dr. Simon Pillai, PGY 2 agree with the treatment plan recommendation patient is back in sinus rhythm continue amiodarone and also Eliquis pressure medication will be continued as unchanged. Documentation for date of: 03/04/24 Subjective Subjective Interval history: Patient seen and assessed at bedside. Patient denies any chest pain, shortness of breath, or palpitations. Patient now back to sinus. Patient concerned about being transferred to [facility]. Exam Vital Signs Temp Pulse Resp BP Pulse Ox O2 Del Method O2 Flow Rate 97.4 F 145 H 20 114/70 96 Room Air 1 03/04/24 12:00 03/04/24 12:41 03/04/24 12:00 03/04/24 12:41 03/04/24 12:00 03/04/24 12:00 03/03/24 16:00 Narrative Exam GENERAL: NAD, responsive/cooperative. A&Ox3 CARDIO: No chest pain on palpation. Heart RRR, no murmurs, rubs, or gallops. PULM: No noted coughing/dyspnea. Lungs CTA B/L GI: Abdomen soft, nondistended, no pain on palpation. BSx4 SKIN/MSK/EXT: No wounds/rashes/edema/amputations, no pain on palpation. Pedal pulses present B/L Objective Labs 03/04/24 04:26 03/04/24 04:26 Labs: Laboratory Results - last 24 hr 03/03/24 03/04/24 15:01 04:26 WBC 29.8 H RBC 4.31 L Hgb 13.9 Hct 41.0 MCV 95 MCH 32.3 MCHC 33.9 RDW Std Deviation 45.7 H Plt Count 232 Neut % (Auto) 89 H Lymph % (Auto) 4 L [place] % (Auto) 6 Eos % (Auto) 0 Baso % (Auto) 0 Neut # (Auto) 26.3 H Lymph # (Auto) 1.1 Jay # (Auto) 1.8 H Eos # (Auto) 0.0 Baso # (Auto) 0.1 Immature Gran # (Auto) 0.46 H Absolute Nucleated RBC 0.00 Immature Gran % 2 H Nucleated RBC % 0 Sodium 136 139 Potassium 4.0 3.5 D Chloride 108 H 107 Carbon Dioxide 18.5 L 21.5 Anion Gap 10 11 BUN 20 24 H Creatinine 1.0 1.0 Estim Creat Clear Calc 90.6 91.0 eGFR > 60 > 60 BUN/Creatinine Ratio 20 24 H Glucose 172 H 119 H D Calculated Osmolality 278 282 Calcium 9.4 9.4 Corrected Calcium 9.4 9.5 Magnesium 2.1 Total Bilirubin 0.4 0.2 L AST < 10 < 8 ALT 13 11 Alkaline Phosphatase 85 80 Total Protein 6.7 6.3 Albumin 4.1 3.9 Globulin 2.6 2.4 Albumin/Globulin Ratio 1.6 1.6 Quality Measures Quality Measures none Advance care planning discussed with:: patient Assessment & Plan Assessment Current Active Medications: Generic Name Dose Route Start Last Admin Trade Name Freq PRN Reason Stop Dose Admin Acetaminophen 650 mg 03/02/24 21:25 Acetaminophen Supp 650 Mg Supp [place] 04/01/24 21:24 Q6HR PRN Fever > 100.4 or Pain 1-10 Amiodarone HCl 200 mg 03/05/24 09:00 Amiodarone Hcl 200 Mg Tablet PO 04/04/24 08:59 BID GERARDO Aspirin 81 mg 03/03/24 09:00 03/04/24 08:57 Aspirin Ec 81 Mg Tabec PO 04/02/24 08:59 81 mg QDAY GERARDO Administration Atorvastatin Calcium 80 mg 03/03/24 09:00 03/04/24 08:57 Atorvastatin Calcium 20 Mg Tablet PO 04/02/24 08:59 80 mg QDAY GERARDO Administration Clonazepam 1 mg 03/03/24 09:00 03/04/24 08:57 Clonazepam 0.5 Mg Tablet PO 03/08/24 08:59 1 mg BID GERARDO Administration Clopidogrel Bisulfate 75 mg 03/03/24 09:00 03/04/24 08:57 Clopidogrel Bisulfate 75 Mg Tablet PO 04/02/24 08:59 75 mg QDAY GERARDO Administration Heparin Sodium (Porcine) 5,000 unit 03/03/24 09:00 03/04/24 09:19 Heparin Sod Inj 5000 Unit/Ml Vial SC 03/17/24 08:59 5,000 unit Q12HR GERARDO Administration Ceftriaxone Sodium/Dextrose 50 mls @ 100 mls/hr 03/03/24 21:00 03/03/24 21:38 Rocephin/D5w 1gm Iv Premix IV 03/10/24 20:59 100 mls/hr DAILY@2100 GERARDO Administration Amiodarone HCl/Dextrose 360 mg in 200 mls @ 16.667 mls/hr 03/03/24 23:57 03/04/24 12:41 Nexterone Ivpb IV 03/04/24 23:56 16.667 mls/hr .Q12H GERARDO Administration Sodium Chloride 1,000 mls @ 75 mls/hr 03/04/24 06:07 03/04/24 06:15 Ns IV 04/03/24 06:06 75 mls/hr .[id number] GERARDO Administration Levetiracetam 1,500 mg 03/02/24 22:30 03/04/24 08:58 Levetiracetam Inj 100 Mg/Ml Vial 5ml IVP 04/01/24 22:29 1,500 mg Q12HR GERARDO Administration Lidocaine 1 patch 03/03/24 08:05 Lidocaine 5% 1 Patch TOP 04/02/24 08:04 UD PRN PAIN Protocol Lorazepam 1 mg 03/03/24 02:47 03/03/24 15:26 Lorazepam 2 Mg/Ml Vial IVP 03/08/24 02:46 1 mg Q2H PRN Administration Breakthrough seizure Ondansetron HCl 4 mg 03/02/24 15:10 03/02/24 17:54 Ondansetron Inj 2 Mg/Ml Inj 2 Ml IV 04/01/24 15:09 4 mg Q4HR PRN Administration NAUSEA OR VOMITING Pantoprazole Sodium 40 mg 03/03/24 09:00 03/04/24 08:57 Pantoprazole 40 Mg Tablet PO 04/02/24 08:59 40 mg QDAY GERARDO Administration Phenytoin 100 mg 03/03/24 06:00 03/04/24 05:27 Phenytoin 100 Mg Capsr PO 04/02/24 05:59 100 mg TID GERARDO Administration Zonisamide 300 mg 03/03/24 09:00 03/04/24 08:57 Zonisamide 100 Mg Capsule PO 04/02/24 08:59 300 mg BID GERARDO Administration Plan 68-year-old male with past medical history of seizure disorder since childhood, recent admission at [facility] for 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 Cardiology consulted for new onset A- flutter with RVR. #Atrial Flutter with RVR?resolved -Continue amiodarone 200 mg p.o. twice daily -Keep potassium above 4 and magnesium above 2 -If heart rate is not controlled add Diltiazem 60mg ?Continue Eliquis, but monitor patient for any signs of bleeding. #Sepsis secondary to UTI #Leukocytosis #Fever #Breakthrough seizures #History of seizure disorder #Acute ischemic stroke rule out #History of right caudate nucleus ischemic stroke with left-sided deficits Management per primary team Case discussed with attending advertising campaign manager Dr. Brett Pillai MD PGY3.
--- NOTE | 2024-03-04 13:00 | ESPR_ITS ---
<Statement entered by Zoltan Mera MD - 03/04/24 15:29> Patient was seen and examined at the bedside. Overnight, patient continues remain in atrial flutter with a heart rate of 140s. Stone Splitter recommended to add Cardizem 60 mg every 6 hourly and recommended to push IV Cardizem 20 mg x 1 in case if heart rate remains uncontrolled. Will continue with amiodarone drip per protocol and switch to amiodarone 200 mg twice daily tomorrow. Considering [id number]: 3 we started aspirin and Eliquis 5 mg twice daily for A-fib prevention for another stroke as patient already has a stroke seen on MRI brain. Discontinued Plavix. Urine cultures are growing GNR and blood cultures came negative for first 24 hours. Patient will be going to SNF for PT eval. 40 meq KCl was repleted x 1. WBCs improving. Hemoglobin remained stable. Kidney functions remained stable. All labs and orders were reviewed. I saw and examined the patient, and I agree with current management stated by Dr Rajan MD,PGY1. Plan of care was discussed with the attending physician and resident physician. Disclaimer: Despite multiple revisions, due to the dictation software being used, the document bellow may not be free of grammatical errors including phonetic/typographic errors. However, this does not deter from our commitment to providing health care in the patient's best interest in mind. Dr. Samaria MD, PGY 2 Documentation for date of: 03/04/24 Subjective Subjective Interval history: 12: No acute events overnight patient denies any seizure-like activity since coming to hospital. Vital signs are stable. White count increased this a.m., 33.8 from 26.3. Patient denies any recent fever, nausea/vomiting, chest pain/productive sputum, abdominal pain, changes in urinary or bowel symptoms. at bedside states that patient appears to have returned to his neurological baseline. His left-sided weakness appears at his baseline Currently pending MRI, blood cultures. Neurology not available until 03/06 regarding adjustment to antiseizure medication. Mr. Mcintyre does follow with Dr. Vences outpatient. 03/04: NAOE. Amiodarone bolus and drip started after rapid called- pt found to be in Afib. HR this AM at 110s, 83 during rounds. WBC downtrending, CMP normal. Patient denies any new symptoms. Denies any chest pain, palpitations, pressure, recent fever, LOC, sensorineural changes. Patient states that he feels at his neurological baseline. Pending urine cultures- prelim cultures grew gram negative rods. Exam Vital Signs Temp Pulse Resp BP Pulse Ox O2 Del Method O2 Flow Rate 97.4 F 145 H 20 114/70 96 Room Air 1 03/04/24 12:00 03/04/24 12:41 03/04/24 12:00 03/04/24 12:41 03/04/24 12:00 03/04/24 12:00 03/03/24 16:00 Narrative Exam GENERAL: NAD, NC/AT, responsive/cooperative. A&Ox3 NEURO: envelope addresser grossly intact, Strength 5/5 RUE and RLE. Strength 0/5 LUE, 1/5 LLE. Left sided mild facial drooping noted-this is his baseline. Speech comprehensible but slightly hard to understand due to left facial weakness. HEENT: Moist mucosa. Eyes open, symmetrical, & clear CARDIO: No chest pain on palpation. Heart RRR, no obvious murmurs PULM: No noted coughing/dyspnea. Lungs CTA B/L, no R/W/R GI: Abdomen soft, nondistended, no pain on palpation. BSx4 SKIN/MSK/EXT: No wounds/rashes/edema/amputations, no pain on palpation. Pedal pulses present B/L Objective Labs 03/04/24 04:26 03/04/24 04:26 Labs: Laboratory Results - last 24 hr 03/03/24 03/04/24 15:01 04:26 WBC 29.8 H RBC 4.31 L Hgb 13.9 Hct 41.0 MCV 95 MCH 32.3 MCHC 33.9 RDW Std Deviation 45.7 H Plt Count 232 Neut % (Auto) 89 H Lymph % (Auto) 4 L [place] % (Auto) 6 Eos % (Auto) 0 Baso % (Auto) 0 Neut # (Auto) 26.3 H Lymph # (Auto) 1.1 [place] # (Auto) 1.8 H Eos # (Auto) 0.0 Baso # (Auto) 0.1 Immature Gran # (Auto) 0.46 H Absolute Nucleated RBC 0.00 Immature Gran % 2 H Nucleated RBC % 0 Sodium 136 139 Potassium 4.0 3.5 D Chloride 108 H 107 Carbon Dioxide 18.5 L 21.5 Anion Gap 10 11 BUN 20 24 H Creatinine 1.0 1.0 Estim Creat Clear Calc 90.6 91.0 eGFR > 60 > 60 BUN/Creatinine Ratio 20 24 H Glucose 172 H 119 H D Calculated Osmolality 278 282 Calcium 9.4 9.4 Corrected Calcium 9.4 9.5 Magnesium 2.1 Total Bilirubin 0.4 0.2 L AST < 10 < 8 ALT 13 11 Alkaline Phosphatase 85 80 Total Protein 6.7 6.3 Albumin 4.1 3.9 Globulin 2.6 2.4 Albumin/Globulin Ratio 1.6 1.6 Quality Measures Quality Measures VTE prophylaxis (Heparin 5000 SC) Advance care planning discussed with:: patient Assessment & Plan Assessment Current Active Medications: Generic Name Dose Route Start Last Admin Trade Name Freq PRN Reason Stop Dose Admin Acetaminophen 650 mg 03/02/24 21:25 Acetaminophen Supp 650 Mg Supp [place] 04/01/24 21:24 Q6HR PRN Fever > 100.4 or Pain 1-10 Amiodarone HCl 200 mg 03/05/24 09:00 Amiodarone Hcl 200 Mg Tablet PO 04/04/24 08:59 BID GERARDO Aspirin 81 mg 03/03/24 09:00 03/04/24 08:57 Aspirin Ec 81 Mg Tabec PO 04/02/24 08:59 81 mg QDAY GERARDO Administration Atorvastatin Calcium 80 mg 03/03/24 09:00 03/04/24 08:57 Atorvastatin Calcium 20 Mg Tablet PO 04/02/24 08:59 80 mg QDAY GERARDO Administration Clonazepam 1 mg 03/03/24 09:00 03/04/24 08:57 Clonazepam 0.5 Mg Tablet PO 03/08/24 08:59 1 mg BID GERARDO Administration Clopidogrel Bisulfate 75 mg 03/03/24 09:00 03/04/24 08:57 Clopidogrel Bisulfate 75 Mg Tablet PO 04/02/24 08:59 75 mg QDAY GERARDO Administration Heparin Sodium (Porcine) 5,000 unit 03/03/24 09:00 03/04/24 09:19 Heparin Sod Inj 5000 Unit/Ml Vial SC 03/17/24 08:59 5,000 unit Q12HR GERARDO Administration Ceftriaxone Sodium/Dextrose 50 mls @ 100 mls/hr 03/03/24 21:00 03/03/24 21:38 Rocephin/D5w 1gm Iv Premix IV 03/10/24 20:59 100 mls/hr DAILY@2100 GERARDO Administration Amiodarone HCl/Dextrose 360 mg in 200 mls @ 16.667 mls/hr 03/03/24 23:57 03/04/24 12:41 Nexterone Ivpb IV 03/04/24 23:56 16.667 mls/hr .Q12H GERARDO Administration Sodium Chloride 1,000 mls @ 75 mls/hr 03/04/24 06:07 03/04/24 06:15 Ns IV 04/03/24 06:06 75 mls/hr .[id number] GERARDO Administration Levetiracetam 1,500 mg 03/02/24 22:30 03/04/24 08:58 Levetiracetam Inj 100 Mg/Ml Vial 5ml IVP 04/01/24 22:29 1,500 mg Q12HR GERARDO Administration Lidocaine 1 patch 03/03/24 08:05 Lidocaine 5% 1 Patch TOP 04/02/24 08:04 UD PRN PAIN Protocol Lorazepam 1 mg 03/03/24 02:47 03/03/24 15:26 Lorazepam 2 Mg/Ml Vial IVP 03/08/24 02:46 1 mg Q2H PRN Administration Breakthrough seizure Ondansetron HCl 4 mg 03/02/24 15:10 03/02/24 17:54 Ondansetron Inj 2 Mg/Ml Inj 2 Ml IV 04/01/24 15:09 4 mg Q4HR PRN Administration NAUSEA OR VOMITING Pantoprazole Sodium 40 mg 03/03/24 09:00 03/04/24 08:57 Pantoprazole 40 Mg Tablet PO 04/02/24 08:59 40 mg QDAY GERARDO Administration Phenytoin 100 mg 03/03/24 06:00 03/04/24 05:27 Phenytoin 100 Mg Capsr PO 04/02/24 05:59 100 mg TID GERARDO Administration Zonisamide 300 mg 03/03/24 09:00 03/04/24 08:57 Zonisamide 100 Mg Capsule PO 04/02/24 08:59 300 mg BID GERARDO Administration Plan 68-year-old male with past medical history of seizure disorder since childhood, recent admission at [facility] for 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 #New Onset Atrial Flutter with Rapid Ventricular Rate Rapid Response called 03/03 afternoon for HRs in 160s. Patient found to be in atrial flutter. Pt does not attest to any symptoms Consulted Dr. West Cardiology, stated to start patient on amiodarone drip 03/04 this AM patient in HR of 83 at bedside. CHADVASC score of 3 - Amiodarone drip started 03/03. - Started Eliquis 5 mg twice daily - After 24 hour infusion will switch to oral Amiodarone - Continue to reassess/monitor -Started Cardizem 60 mg every 6 hourly and consider giving Cardizem IV 20 mg x 1 in case heart remained uncontrolled #Sepsis secondary to UTI growing GNR #Leukocytosis #Fever Patient met SIRS criteria 06/03 with temperature 101.3, tachycardia, tachypneia, and leukocytosis. UA is showing positive leukocyte esterase, 109 RBC, 103 WBC, however no bacteria. Procalcitonin was 0.59. CXR was clear. 03/03: VSS stable on exam today, WBC increased to 33.8 from 26.3. Pt denies any new symptoms -Started ceftriaxone IV (03/02- -Urine prelim cultures grew GNR- pending final cultures -Blood cultures pending- no growth for 24 hrs. #Breakthrough seizures #History of seizure disorder Patient had breakthrough seizure at facility with a second seizure witnessed by in ED, followed by postictal state. Received levetiracetam 1000 mg IV x1, lorazepam 1 mg IV x1, phenytoin 1000 mg IV x1, 1 L NS. Per chart review patient is well known by Neurology Dr. Vences. 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 Previous history of reported daily seizures. 03/04: no seizure like symptoms since admission. -Dysphagia 3/Reg liquids with precautions per speech -Levetiracetam 1500 mg IV BID -Phenytoin 100 mg TID, zonisamide 300 mg BID, clonazepam 1 mg BID -Seizure precautions -Aspiration precautions -Neurology consulted- pending recommendations #Acute ischemic stroke rule out #History of right caudate nucleus ischemic stroke with left-sided deficits s/p tPA on 02/18/2024 Patient presented with altered mental status, most likely is post-ictal state versus new stroke. No new deficits, he presents with left-sided weakness which has been present since last hospitalization for CVA. CT head negative for acute hemorrhage, mildly hyperdense area in the posterior right parietal lobe, axial image 8, measuring 20 mm, which may be prominent sagittal sinus, small hyperdense mass at the convexity not excluded, such as incidental meningioma CTA head/neck negative Nurse swallow screen passed PT- pt will benefit from acute rehab placement after discharge -Neurology consulted- pending -MRI brain with and without contrast showed old 25 mm right caudate infarct -Continuing aspirin and Eliquis -Discontinue Plavix -Continue atorvastatin 80 mg HS daily DVT prophylaxis: Heparin 5,000 U subQ GI prophylaxis: Pantoprazole 40 mg PO daily Diet: Dysphagia 3 advanced Cohen: None Lines: Peripheral IV Antibiotics: Ceftriaxone [03/02/2023- ] CODE STATUS: FULL Reason for hospitalization: Breakthrough seizure, sepsis, CVA rule out Patient plan of care was discussed with the attending physician, Dr. Claros. Rajan Silva DO, PGY-1 Attending Provider Attestation/Addendum I attest that I was physically present for the evaluation, physical examination, lab and imaging review of the patient with the residents. I discussed the case with the residents and agree with the findings and plans of care as documented above. At bedside patient states he is feeling better and does not have new complaints. Has not have any seizure episodes after admission. As per his nurse he has been able to swallow water and his diet well. Heart rate has not been controlled despite amiodarone drip, discussed with cardiology, agreed on starting Diltiazem. Awaiting neurology recommendation. Luis Antonio Claros MD
[2024-03-04] MEDS: APIXABAN 2.5 MG TABLET 5 MG PO ×2 (14:30→21:11)
--- NOTE | 2024-03-04 16:21 | PC.SS ---
SS follow up note; SS received a call from Opal from [facility] and she reported that patient has a new IPA and she sent out Auth again to the new IPA. [facility] is no longer patient's IPA patient Insurance is now through [employer]. Opal submitted authorization to [facility].
[2024-03-04] MEDS: DILTIAZEM 30 MG TABLET 60 MG PO ×2 (16:58→21:13)
[2024-03-04] MEDS: cefTRIAXone/D5w 1gm IV premix 50 ML IV (21:11)
[2024-03-05] VITALS (10 sets, daily range): BP systolic 114–126; BP diastolic 70–78; PULSE 61–76; RESP 13–21; TEMP 35.9–36.1; O2SAT 96–99; BMI 30.8
[2024-03-05] MEDS: PHENYTOIN 100 MG CAPSR PO ×3 (05:05→21:30)
[2024-03-05] MEDS: DILTIAZEM 30 MG TABLET 60 MG PO (05:06)
[2024-03-05 06:11] LABS: Basophils # (Auto) 0.1 Thou/mm3 (0.0-0.2); Basophils % (Auto) 0 % (0-2.5); Eosinophils # (Auto) 0.2 Thou/mm3 (0.0-0.5); Eosinophils % (Auto) 1 % (0-10); Hematocrit 38.5 % (41.0-53.0); Hemoglobin 13.1 g/dL (13.5-16.0); Immature Granulocytes % (Auto) 2 % (0-0); Immature Granulocytes Auto 0.37 Thou/mm3 (0.00-0.00); Lymphocytes # (Auto) 1.3 Thou/mm3 (1.0-4.8); Lymphocytes % (Auto) 8 % (10-50); Mean Corpuscular Hemoglobin 32.2 pg (25.0-35.0); Mean Corpuscular Volume 95 fL (80-100); Monocytes # (Auto) 1.1 Thou/mm3 (0.0-0.8); Monocytes % (Auto) 6 % (0-12); Neutrophils # (Auto) 14.8 Thou/mm3 (1.8-7.7); Neutrophils % (Auto) 83 % (37-80); Nucleated Red Blood Cell % 0 /100 WBC (0); Platelet Count 246 Thou/mm3 (140-440); RDW Standard Deviation 45.5 fL (35.1-43.9); Red Blood Count 4.07 Miln/mm3 (4.50-5.90); White Blood Count 17.8 Thou/mm3 (3.8-10.6)
[2024-03-05 06:39] LABS: Alanine Aminotransferase 18 U/L (10-49); Albumin, Serum 3.8 gm/dL (3.4-4.8); Albumin/Globulin Ratio 1.7 (1.2-2.2); Alkaline Phosphatase 72 U/L (46-116); Anion Gap 9 (7-16); Aspartate Amino Transferase 21 U/L (0-34); BUN/Creatinine Ratio 30 Ratio (12-20); Bilirubin,Total 0.3 mg/dL (0.3-1.2); Blood Urea Nitrogen 24 mg/dL (9-23); Calcium (Corrected) 9.2 mg/dL (8.5-10.1); Carbon Dioxide 20.5 mMol/L (20.0-31.0); Chloride 109 mMol/L (98-107); Creatinine (Component) 0.8 mg/dL (0.6-1.3); Globulin 2.3 gm/dL (2.3-3.5); Glucose 110 mg/dL (74-106); Magnesium 1.9 mg/dL (1.6-2.6); Osmolality,Calculated 280 (275-295); Potassium 3.7 mMol/L (3.4-5.1); Sodium 138 mMol/L (136-145); Total Protein 6.1 gm/dL (5.7-8.2); eGFR > 60 See Note
[2024-03-05] MEDS: SODIUM CHLORIDE 0.9% 1000 ML 1,000 ML 75 ML IV (08:25)
[2024-03-05] MEDS: clonazePAM 0.5 MG TABLET 1 MG PO ×2 (08:25→21:30)
[2024-03-05] MEDS: POTASSIUM CHLORIDE 20 mEq TABCR 40 MEQ PO (08:26)
[2024-03-05] MEDS: PANTOPRAZOLE 40 MG TABLET PO (08:26)
[2024-03-05] MEDS: APIXABAN 2.5 MG TABLET 5 MG PO ×2 (08:26→21:29)
[2024-03-05] MEDS: ZONISAMIDE 100 MG CAPSULE 300 MG PO ×2 (08:26→21:30)
[2024-03-05] MEDS: ATORVASTATIN CALCIUM 20 MG TABLET 80 MG PO (08:26)
[2024-03-05] MEDS: HEPARIN SOD INJ 5000 UNIT/ML VIAL SC ×2 (08:27→21:30)
[2024-03-05] MEDS: ASPIRIN EC 81 MG TABEC PO (08:27)
[2024-03-05] MEDS: AMIODARONE HCL 200 MG TABLET PO ×2 (08:27→21:31)
[2024-03-05] MEDS: levETIRAcetam INJ 100 MG/ML VIAL 5ML 1500 MG IVP ×2 (08:28→21:30)
[2024-03-05] MEDS: DILTIAZEM CD 120 MG CAPCR 240 MG PO (09:11)
[2024-03-05] MEDS: NAPH,KPH MBDB 1 PACKET (1.5 GM) 2 PACKET PO (09:11)
[2024-03-05] MEDS: Magnesium Sulfate 1 gm Ivpb 1 GM/100 ML BAG IV (09:11)
--- NOTE | 2024-03-05 10:07 | PC.NURSE ---
anesthesia technician Yves informed me this morning that Pacemaker patient currently has is not MRI compatiable. I reported this information to Dr. irwin that stated he will take care of it, I also gave him the information document on the pacemaker and the warnings about MRI scanning.
--- NOTE | 2024-03-05 10:35 | ESPR_ITS ---
<Statement entered by Carol West MD - 03/05/24 15:01> I personally examined the patient evaluated the patient along with resident physician Dr. Simon Pillai, PGY 2 agree with the treatment plan recommendation patient is back in sinus rhythm continue amiodarone and also Eliquis pressure medication will be continued Cardiology esquivel patient stable [facility] amiodarone should be continued to prevent further episodes of A-fib RVR Documentation for date of: 03/05/24 Subjective Subjective Interval history: Patient seen and assessed at bedside this morning. Patient states to be feeling well. Denies any chest pain, shortness of breath, or palpitations. Exam Vital Signs Temp Pulse Resp BP Pulse Ox O2 Del Method O2 Flow Rate 97.0 F 61 17 114/72 98 Room Air 1 03/05/24 08:00 03/05/24 09:11 03/05/24 08:00 03/05/24 09:11 03/05/24 08:00 03/05/24 08:00 03/03/24 16:00 Narrative Exam GENERAL: NAD, responsive/cooperative. A&Ox3 CARDIO: No chest pain on palpation. Heart RRR, no murmurs, rubs, or gallops. PULM: No noted coughing/dyspnea. Lungs CTA B/L GI: Abdomen soft, nondistended, no pain on palpation. BSx4 SKIN/MSK/EXT: No wounds/rashes/edema/amputations, no pain on palpation. Pedal pulses present B/L Objective Labs 03/05/24 05:43 03/05/24 05:43 Labs: Laboratory Results - last 24 hr 03/05/24 05:43 WBC 17.8 H D RBC 4.07 L Hgb 13.1 L Hct 38.5 L MCV 95 MCH 32.2 MCHC 34.0 RDW Std Deviation 45.5 H Plt Count 246 Neut % (Auto) 83 H Lymph % (Auto) 8 L [place] % (Auto) 6 Eos % (Auto) 1 Baso % (Auto) 0 Neut # (Auto) 14.8 H Lymph # (Auto) 1.3 [place] # (Auto) 1.1 H Eos # (Auto) 0.2 Baso # (Auto) 0.1 Immature Gran # (Auto) 0.37 H Absolute Nucleated RBC 0.00 Immature Gran % 2 H Nucleated RBC % 0 Sodium 138 Potassium 3.7 Chloride 109 H Carbon Dioxide 20.5 Anion Gap 9 BUN 24 H Creatinine 0.8 Estim Creat Clear Calc 114.0 eGFR > 60 BUN/Creatinine Ratio 30 H Glucose 110 H Calculated Osmolality 280 Calcium 9.0 Corrected Calcium 9.2 Phosphorus 2.0 L Magnesium 1.9 Total Bilirubin 0.3 AST 21 ALT 18 Alkaline Phosphatase 72 Total Protein 6.1 Albumin 3.8 Globulin 2.3 Albumin/Globulin Ratio 1.7 Quality Measures Quality Measures VTE prophylaxis (Heparin 5000 SC) Advance care planning discussed with:: patient and spouse Assessment & Plan Assessment Current Active Medications: Generic Name Dose Route Start Last Admin Trade Name Freq PRN Reason Stop Dose Admin Acetaminophen 650 mg 03/02/24 21:25 Acetaminophen Supp 650 Mg Supp [place] 04/01/24 21:24 Q6HR PRN Fever > 100.4 or Pain 1-10 Amiodarone HCl 200 mg 03/05/24 09:00 03/05/24 08:27 Amiodarone Hcl 200 Mg Tablet PO 04/04/24 08:59 200 mg BID GERARDO Administration Apixaban 5 mg 03/04/24 13:45 03/05/24 08:26 Apixaban 2.5 Mg Tablet PO 04/03/24 13:44 5 mg BID GERARDO Administration Aspirin 81 mg 03/03/24 09:00 03/05/24 08:27 Aspirin Ec 81 Mg Tabec PO 04/02/24 08:59 81 mg QDAY GERARDO Administration Atorvastatin Calcium 80 mg 03/03/24 09:00 03/05/24 08:26 Atorvastatin Calcium 20 Mg Tablet PO 04/02/24 08:59 80 mg QDAY GERARDO Administration Clonazepam 1 mg 03/03/24 09:00 03/05/24 08:25 Clonazepam 0.5 Mg Tablet PO 03/08/24 08:59 1 mg BID GERARDO Administration Diltiazem HCl 240 mg 03/05/24 09:00 03/05/24 09:11 Diltiazem Cd 120 Mg Capcr PO 04/04/24 08:59 240 mg QDAY GERARDO Administration Heparin Sodium (Porcine) 5,000 unit 03/03/24 09:00 03/05/24 08:27 Heparin Sod Inj 5000 Unit/Ml Vial SC 03/17/24 08:59 5,000 unit Q12HR GERARDO Administration Ceftriaxone Sodium/Dextrose 50 mls @ 100 mls/hr 03/03/24 21:00 03/04/24 21:11 Rocephin/D5w 1gm Iv Premix IV 03/10/24 20:59 100 mls/hr DAILY@2100 GERARDO Administration Sodium Chloride 1,000 mls @ 75 mls/hr 03/04/24 06:07 03/05/24 08:25 Ns IV 04/03/24 06:06 75 mls/hr .[id number] GERARDO Administration Levetiracetam 1,500 mg 03/02/24 22:30 03/05/24 08:28 Levetiracetam Inj 100 Mg/Ml Vial 5ml IVP 04/01/24 22:29 1,500 mg Q12HR GERARDO Administration Lidocaine 1 patch 03/03/24 08:05 Lidocaine 5% 1 Patch TOP 04/02/24 08:04 UD PRN PAIN Protocol Lorazepam 1 mg 03/03/24 02:47 03/03/24 15:26 Lorazepam 2 Mg/Ml Vial IVP 03/08/24 02:46 1 mg Q2H PRN Administration Breakthrough seizure Ondansetron HCl 4 mg 03/02/24 15:10 03/02/24 17:54 Ondansetron Inj 2 Mg/Ml Inj 2 Ml IV 04/01/24 15:09 4 mg Q4HR PRN Administration NAUSEA OR VOMITING Pantoprazole Sodium 40 mg 03/03/24 09:00 03/05/24 08:26 Pantoprazole 40 Mg Tablet PO 04/02/24 08:59 40 mg QDAY GERARDO Administration Phenytoin 100 mg 03/03/24 06:00 03/05/24 05:05 Phenytoin 100 Mg Capsr PO 04/02/24 05:59 100 mg TID GERARDO Administration Zonisamide 300 mg 03/03/24 09:00 03/05/24 08:26 Zonisamide 100 Mg Capsule PO 04/02/24 08:59 300 mg BID GERARDO Administration Plan 68-year-old male with past medical history of seizure disorder since childhood, recent admission at [facility] for 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 Cardiology consulted for new onset A- flutter with RVR. #Atrial Flutter with RVR?resolved -Continue amiodarone 200 mg p.o. twice daily, continue with Cardizem 240 -Keep potassium above 4 and magnesium above 2 ?Continue Eliquis, but monitor patient for any signs of bleeding. #Sepsis secondary to UTI #Leukocytosis #Fever #Breakthrough seizures #History of seizure disorder #Acute ischemic stroke rule out #History of right caudate nucleus ischemic stroke with left-sided deficits Management per primary team Case discussed with attending machine molder Dr. Brett Pillai MD PGY3.
--- NOTE | 2024-03-05 13:15 | ESPR_ITS ---
<Statement entered by Zoltan Mera MD - 03/05/24 16:29> Patient was seen and examined at the bedside. Patient appears to be doing better in terms of heart rate. Vitals showed heart rate in sinus now. Labs revealed improvement in white count 17.8. Chemistry panel was unremarkable. Kidney functions remained stable. Hypophosphatemia. Phosphorus was repleted. Patient was started on amiodarone 200 p.o. and Cardizem CD240 once daily. Cardiology is agreeable to the plan. Urine culture growing E. coli pansensitive therefore will likely discharge the patient on Augmentin or Keflex. As seizures workup was not done we ordered EEG and placed neurology consult for tomorrow morning. Currently continuing aspirin and Eliquis. All labs and orders were reviewed. I saw and examined the patient, and I agree with current management stated by Dr Rajan DO,PGY1. Plan of care was discussed with the attending physician and resident physician. Disclaimer: Despite multiple revisions, due to the dictation software being used, the document bellow may not be free of grammatical errors including phonetic/typographic errors. However, this does not deter from our commitment to providing health care in the patient's best interest in mind. Dr. Samaria MD, PGY 2 Documentation for date of: 03/05/24 Subjective Subjective Interval history: 03/03: No acute events overnight patient denies any seizure-like activity since coming to hospital. Vital signs are stable. White count increased this a.m., 33.8 from 26.3. Patient denies any recent fever, nausea/vomiting, chest pain/productive sputum, abdominal pain, changes in urinary or bowel symptoms. at bedside states that patient appears to have returned to his neurological baseline. His left-sided weakness appears at his baseline Currently pending MRI, blood cultures. Neurology not available until 03/06 regarding adjustment to antiseizure medication. Mr. Mcintyre does follow with Dr. Vences outpatient. 03/04: NAOE. Amiodarone bolus and drip started after rapid called- pt found to be in Afib. HR this AM at 110s, 83 during rounds. WBC downtrending, CMP normal. Patient denies any new symptoms. Denies any chest pain, palpitations, pressure, recent fever, LOC, sensorineural changes. Patient states that he feels at his neurological baseline. Pending urine cultures- prelim cultures grew gram negative rods. 03/05: NAOE. Vital signs stable this a.m. Heart rate has been controlled since 4 PM yesterday. Electrolytes normal. White count downtrending from 29.8 yesterday to 17.8. Patient denies any new symptoms, appears comfortable. Urine culture grew E. coli. Pending neurology consult for medication adjustment for breakthrough seizure, who will be available on 03/06. Patient is on oral amiodarone and diltiazem as well as Eliquis now. Exam Vital Signs Temp Pulse Resp BP Pulse Ox O2 Del Method O2 Flow Rate 97.0 F 61 17 114/72 98 Room Air 1 03/05/24 08:00 03/05/24 09:11 03/05/24 08:00 03/05/24 09:11 03/05/24 08:00 03/05/24 08:00 03/03/24 16:00 Narrative Exam GENERAL: NAD, NC/AT, responsive/cooperative. 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 Strength 0/5 LUE, 1/5 LLE. Left sided mild facial drooping noted-this is his baseline. Speech comprehensible but slightly hard to understand due to left facial weakness. HEENT: Moist mucosa. Eyes open, symmetrical, & clear CARDIO: No chest pain on palpation. Heart RRR, no obvious murmurs PULM: No noted coughing/dyspnea. Lungs CTA B/L, no R/W/R GI: Abdomen soft, nondistended, no pain on palpation. BSx4 SKIN/MSK/EXT: No wounds/rashes/edema/amputations, no pain on palpation. Pedal pulses present B/L Objective Labs 03/05/24 05:43 03/05/24 05:43 Labs: Laboratory Results - last 24 hr 03/05/24 05:43 WBC 17.8 H D RBC 4.07 L Hgb 13.1 L Hct 38.5 L MCV 95 MCH 32.2 MCHC 34.0 RDW Std Deviation 45.5 H Plt Count 246 Neut % (Auto) 83 H Lymph % (Auto) 8 L [place] % (Auto) 6 Eos % (Auto) 1 Baso % (Auto) 0 Neut # (Auto) 14.8 H Lymph # (Auto) 1.3 [place] # (Auto) 1.1 H Eos # (Auto) 0.2 Baso # (Auto) 0.1 Immature Gran # (Auto) 0.37 H Absolute Nucleated RBC 0.00 Immature Gran % 2 H Nucleated RBC % 0 Sodium 138 Potassium 3.7 Chloride 109 H Carbon Dioxide 20.5 Anion Gap 9 BUN 24 H Creatinine 0.8 Estim Creat Clear Calc 114.0 eGFR > 60 BUN/Creatinine Ratio 30 H Glucose 110 H Calculated Osmolality 280 Calcium 9.0 Corrected Calcium 9.2 Phosphorus 2.0 L Magnesium 1.9 Total Bilirubin 0.3 AST 21 ALT 18 Alkaline Phosphatase 72 Total Protein 6.1 Albumin 3.8 Globulin 2.3 Albumin/Globulin Ratio 1.7 Quality Measures Quality Measures VTE prophylaxis (Heparin 5000 SC) Advance care planning discussed with:: patient Assessment & Plan Assessment Current Active Medications: Generic Name Dose Route Start Last Admin Trade Name Freq PRN Reason Stop Dose Admin Acetaminophen 650 mg 03/02/24 21:25 Acetaminophen Supp 650 Mg Supp NC 04/01/24 21:24 Q6HR PRN Fever > 100.4 or Pain 1-10 Amiodarone HCl 200 mg 03/05/24 09:00 03/05/24 08:27 Amiodarone Hcl 200 Mg Tablet PO 04/04/24 08:59 200 mg BID GERARDO Administration Apixaban 5 mg 03/04/24 13:45 03/05/24 08:26 Apixaban 2.5 Mg Tablet PO 04/03/24 13:44 5 mg BID GERARDO Administration Aspirin 81 mg 03/03/24 09:00 03/05/24 08:27 Aspirin Ec 81 Mg Tabec PO 04/02/24 08:59 81 mg QDAY GERARDO Administration Atorvastatin Calcium 80 mg 03/03/24 09:00 03/05/24 08:26 Atorvastatin Calcium 20 Mg Tablet PO 04/02/24 08:59 80 mg QDAY GERARDO Administration Clonazepam 1 mg 03/03/24 09:00 03/05/24 08:25 Clonazepam 0.5 Mg Tablet PO 03/08/24 08:59 1 mg BID GERARDO Administration Diltiazem HCl 240 mg 03/05/24 09:00 03/05/24 09:11 Diltiazem Cd 120 Mg Capcr PO 04/04/24 08:59 240 mg QDAY GERARDO Administration Heparin Sodium (Porcine) 5,000 unit 03/03/24 09:00 03/05/24 08:27 Heparin Sod Inj 5000 Unit/Ml Vial SC 03/17/24 08:59 5,000 unit Q12HR GERARDO Administration Ceftriaxone Sodium/Dextrose 50 mls @ 100 mls/hr 03/03/24 21:00 03/04/24 21:11 Rocephin/D5w 1gm Iv Premix IV 03/10/24 20:59 100 mls/hr DAILY@2100 GERARDO Administration Sodium Chloride 1,000 mls @ 75 mls/hr 03/04/24 06:07 03/05/24 08:25 Ns IV 04/03/24 06:06 75 mls/hr .[id number] GERARDO Administration Levetiracetam 1,500 mg 03/02/24 22:30 03/05/24 08:28 Levetiracetam Inj 100 Mg/Ml Vial 5ml IVP 04/01/24 22:29 1,500 mg Q12HR GERARDO Administration Lidocaine 1 patch 03/03/24 08:05 Lidocaine 5% 1 Patch TOP 04/02/24 08:04 UD PRN PAIN Protocol Lorazepam 1 mg 03/03/24 02:47 03/03/24 15:26 Lorazepam 2 Mg/Ml Vial IVP 03/08/24 02:46 1 mg Q2H PRN Administration Breakthrough seizure Ondansetron HCl 4 mg 03/02/24 15:10 03/02/24 17:54 Ondansetron Inj 2 Mg/Ml Inj 2 Ml IV 04/01/24 15:09 4 mg Q4HR PRN Administration NAUSEA OR VOMITING Pantoprazole Sodium 40 mg 03/03/24 09:00 03/05/24 08:26 Pantoprazole 40 Mg Tablet PO 04/02/24 08:59 40 mg QDAY GERARDO Administration Phenytoin 100 mg 03/03/24 06:00 03/05/24 05:05 Phenytoin 100 Mg Capsr PO 04/02/24 05:59 100 mg TID GERARDO Administration Zonisamide 300 mg 03/03/24 09:00 03/05/24 08:26 Zonisamide 100 Mg Capsule PO 04/02/24 08:59 300 mg BID GERARDO Administration Plan 68-year-old male with past medical history of seizure disorder since childhood, recent admission at [facility] for 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 #New Onset Atrial Flutter with Rapid Ventricular Rate Rapid Response called 03/03 afternoon for HRs in 160s. Patient found to be in atrial flutter. Pt does not attest to any symptoms Consulted Dr. [facility], stated to start patient on amiodarone drip 03/04 this AM patient in HR of 83 at bedside. 03/05 at this a.m. patient heart rate of 63, appears to have been controlled for greater than 12 hours CHADVASC score of 3 -Amiodarone load finished. Patient currently on amiodarone 200 Mg p.o. twice daily -Diltiazem 240 mg p.o. daily -Eliquis 5 Mg twice daily -Continue to reassess/monitor -Cardizem IV 20 Mg IV push x 1 if heart rate above 130s #Sepsis secondary to UTI growing GNR #Leukocytosis #Fever Patient met SIRS criteria / with temperature 101.3, tachycardia, tachypneia, and leukocytosis. UA is showing positive leukocyte esterase, 109 RBC, 103 WBC, however no bacteria. Procalcitonin was 0.59. CXR was clear. Urine cultures grew E. coli Blood cultures negative growth for 48 hours -Started ceftriaxone IV (03/02- -upon discharge patient will be discharged with oral course of Keflex #Breakthrough seizures #History of seizure disorder Patient had breakthrough seizure at facility with a second seizure witnessed by in ED, followed by postictal state. Received levetiracetam 1000 mg IV x1, lorazepam 1 mg IV x1, phenytoin 1000 mg IV x1, 1 L NS. Per chart review patient is well known by Neurology Dr. Vences. 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 Previous history of reported daily seizures. 03/04: no seizure like symptoms since admission. -Dysphagia 3/Reg liquids with precautions per speech -Levetiracetam 1500 mg IV BID -Phenytoin 100 mg TID, zonisamide 300 mg BID, clonazepam 1 mg BID -Seizure precautions -Aspiration precautions -Neurology consulted- pending recommendations for medication adjustments #Acute ischemic stroke rule out #History of right caudate nucleus ischemic stroke with left-sided deficits s/p tPA on 02/18/2024 Patient presented with altered mental status, most likely is post-ictal state versus new stroke. No new deficits, he presents with left-sided weakness which has been present since last hospitalization for CVA. CT head negative for acute hemorrhage, mildly hyperdense area in the posterior right parietal lobe, axial image 8, measuring 20 mm, which may be prominent sagittal sinus, small hyperdense mass at the convexity not excluded, such as incidental meningioma CTA head/neck negative Nurse swallow screen passed PT- pt will benefit from acute rehab placement after discharge -Neurology consulted- pending -MRI brain with and without contrast showed old 25 mm right caudate infarct -Continuing aspirin and Eliquis -Continue atorvastatin 80 mg HS daily DVT prophylaxis: Heparin 5,000 U subQ GI prophylaxis: Pantoprazole 40 mg PO daily Diet: Dysphagia 3 advanced Cohen: None Lines: Peripheral IV Antibiotics: Ceftriaxone [03/02/2023- ] CODE STATUS: FULL Reason for hospitalization: Breakthrough seizure, sepsis, CVA rule out Patient plan of care was discussed with the attending physician, Dr. Claros. Rajan Silva DO, PGY-1 Attending Provider Attestation/Addendum I attest that I was physically present for the evaluation, physical examination, lab and imaging review of the patient with the residents. I discussed the case with the residents and agree with the findings and plans of care as documented above. At bedside, patient appears comfortable and does not have any complaints. Converted back to sinus rhythm from atrial flutter. Continues to be on Amiodarone and Diltiazem. Continues to be on IV rocephin sensitive to E.Coli which gre on urine culture. We will obtain EEG and wait for recommendation from In house neurology. Luis Antonio Claros MD
--- NOTE | 2024-03-05 16:34 | XR_ITS ---
Examination: Duplex scan of the upper extremity, unilateral left Date and time of exam: March 05, 2024 1718 hrs. Indications: Left arm swelling post CVA beginning 3 weeks ago Technique: Duplex scan of the extremity veins using B-mode/grayscale imaging and Doppler spectral analysis and color flow Attention is directed to internal echogenicity, compression and augmentation involving these veins, color flow assessment, spectral analysis Findings: Major deep venous structures in the extremity demonstrate normal course and caliber. There is no evidence of deep vein thrombosis. Normal color flow and spectral analysis Impression: Negative for DVT..
[2024-03-05] MEDS: cefTRIAXone/D5w 1gm IV premix 50 ML IV (21:31)
[2024-03-06] VITALS (9 sets, daily range): BP systolic 111–121; BP diastolic 68–78; PULSE 60–77; RESP 14–30; TEMP 35.9–36.3; O2SAT 98–100; BMI 31.7
[2024-03-06] MEDS: PHENYTOIN 100 MG CAPSR PO ×3 (05:12→21:08)
[2024-03-06 05:54] LABS: Basophils # (Auto) 0.1 Thou/mm3 (0.0-0.2); Basophils % (Auto) 1 % (0-2.5); Eosinophils # (Auto) 0.2 Thou/mm3 (0.0-0.5); Eosinophils % (Auto) 2 % (0-10); Hematocrit 38.9 % (41.0-53.0); Hemoglobin 12.8 g/dL (13.5-16.0); Immature Granulocytes % (Auto) 5 % (0-0); Immature Granulocytes Auto 0.61 Thou/mm3 (0.00-0.00); Lymphocytes # (Auto) 1.3 Thou/mm3 (1.0-4.8); Lymphocytes % (Auto) 11 % (10-50); Mean Corpuscular HGB Conc 32.9 g/dl (31.0-37.0); Mean Corpuscular Hemoglobin 32.1 pg (25.0-35.0); Mean Corpuscular Volume 98 fL (80-100); Monocytes % (Auto) 9 % (0-12); Neutrophils # (Auto) 8.5 Thou/mm3 (1.8-7.7); Neutrophils % (Auto) 73 % (37-80); Nucleated Red Blood Cell % 0 /100 WBC (0); Platelet Count 276 Thou/mm3 (140-440); RDW Standard Deviation 47.8 fL (35.1-43.9); Red Blood Count 3.99 Miln/mm3 (4.50-5.90); White Blood Count 11.7 Thou/mm3 (3.8-10.6)
[2024-03-06 06:19] LABS: Alanine Aminotransferase 21 U/L (10-49); Albumin, Serum 3.7 gm/dL (3.4-4.8); Albumin/Globulin Ratio 1.5 (1.2-2.2); Alkaline Phosphatase 74 U/L (46-116); Anion Gap 7 (7-16); Aspartate Amino Transferase 26 U/L (0-34); BUN/Creatinine Ratio 25 Ratio (12-20); Bilirubin,Total 0.4 mg/dL (0.3-1.2); Blood Urea Nitrogen 20 mg/dL (9-23); Calcium 9.2 mg/dL (8.3-10.6); Calcium (Corrected) 9.4 mg/dL (8.5-10.1); Chloride 111 mMol/L (98-107); Creatinine (Component) 0.8 mg/dL (0.6-1.3); Estimated Creatinine Clearance 115.6 mL/min (>60); Globulin 2.4 gm/dL (2.3-3.5); Glucose 100 mg/dL (74-106); Magnesium 2.1 mg/dL (1.6-2.6); Osmolality,Calculated 283 (275-295); Phosphorous 2.4 mg/dL (2.4-5.1); Potassium 4.1 mMol/L (3.4-5.1); Sodium 141 mMol/L (136-145); Total Protein 6.1 gm/dL (5.7-8.2); eGFR > 60 See Note
--- NOTE | 2024-03-06 07:32 | PC.CC ---
Late Entry 03/05/24 Rounding note: Neuro consult, pt will remain.
[2024-03-06] MEDS: HEPARIN SOD INJ 5000 UNIT/ML VIAL SC ×2 (09:24→20:50)
[2024-03-06] MEDS: levETIRAcetam INJ 100 MG/ML VIAL 5ML 1500 MG IVP ×2 (09:24→20:50)
[2024-03-06] MEDS: clonazePAM 0.5 MG TABLET 1 MG PO ×2 (09:25→20:50)
[2024-03-06] MEDS: ASPIRIN EC 81 MG TABEC PO (09:25)
[2024-03-06] MEDS: PANTOPRAZOLE 40 MG TABLET PO (09:25)
[2024-03-06] MEDS: ZONISAMIDE 100 MG CAPSULE 300 MG PO ×2 (09:26→20:49)
[2024-03-06] MEDS: DILTIAZEM CD 120 MG CAPCR 240 MG PO (09:26)
[2024-03-06] MEDS: APIXABAN 2.5 MG TABLET 5 MG PO ×2 (09:26→20:49)
[2024-03-06] MEDS: AMIODARONE HCL 200 MG TABLET PO ×2 (09:27→20:49)
[2024-03-06] MEDS: ATORVASTATIN CALCIUM 10 MG TABLET 80 MG PO (10:06)
[2024-03-06] MEDS: LIDOCAINE 5% 1 PATCH TOP (10:29)
--- NOTE | 2024-03-06 13:06 | ESPR_ITS ---
RE: ANGELA MCINTYRE : 1955 DATE OF SERVICE: 03/06/2024 S: Angela Mcintyre is a 68-year-old male with history of seizure disorder, stroke, admitted to the hospital and developed AFib with RVR, back in sinus rhythm with medical management. He was started on amiodarone and apixaban. He is doing much better, not having chest pain or shortness of breath. O Vital Signs: Blood pressure 120/70 mmHg, pulse rate 64. Neck: Supple. Lungs: Decreased breath sounds. No rales or rhonchi. Heart: S1, S2 regular. S4 gallop heard. Abdomen: Thin and soft. Extremities: No edema. Laboratory Data: White blood cell count 11.7, improved. Chemistry panel is normal. A: 1. Paroxysmal atrial fibrillation back in normal sinus rhythm on amiodarone. 2. History of stroke, left-sided hemiplegia. 3. Seizure disorder. P: Continue present medications. Okay to discharge to a long-term facility. Follow-up in my office as necessary. DT: 11:21:01 TT: 13:04:00 Ref: [id number] - TID: [id number]
--- NOTE | 2024-03-06 13:43 | ESPR_ITS ---
Documentation for date of: 03/06/24 Subjective Subjective Interval history: No acute event overnight reported by patient. Patient examined at bedside. Pending final recommendations from neurology for witnessed seizure prior to admission. Patient will likely continue home medication. Patient denied any pyrexia or chills overnight. Patient denied any chest pain or dyspnea. No new seizures reproted. Patient may go home with current cardiology medication, inlcuding Eliquis. Exam Vital Signs Temp Pulse Resp BP Pulse Ox O2 Del Method O2 Flow Rate 97.0 F 65 14 119/78 100 Room Air 1 03/06/24 12:00 03/06/24 12:00 03/06/24 12:00 03/06/24 12:00 03/06/24 12:00 03/06/24 12:00 03/06/24 12:00 Narrative Exam General Appearance: Alert & Oriented X3, well-nourished [sex] who is lying in bed in [no acute distress] HEENT: Skull symmetrical and atraumatic. Conjunctivae pin and moist. Pupils equal, round, reactive to light and accommodation (PERRL). External ear without lesion or discharge. Straight, nares patient, mucosa pink, no discharge. No thyroid nodule appreciated. No cervical lymphadenopathy. Cardio: Normal Rate and Rhythm with S1 and S2 heart sounds. No murmurs or extra heart sounds auscultated. No bruits on carotid auscultation. No peripheral edema or cyanosis. Lungs: Symmetric with good expansion. Chest and back non-tender. Breath sounds vesicular without crackles, wheezing or rhonchi Abdomen: Non-tender, Non-distended, Normal Reactive Bowel Sounds Neuro: Alert, cooperative, oriented to person, place, and time. Speech clear. CN grossly intact. Upper motor strength 5/5 and Lower motor strength 5/5. Sensation intact. Objective Labs 03/06/24 04:25 03/06/24 04:25 Labs: Laboratory Results - last 24 hr 03/06/24 04:25 WBC 11.7 H D RBC 3.99 L Hgb 12.8 L Hct 38.9 L MCV 98 MCH 32.1 MCHC 32.9 RDW Std Deviation 47.8 H Plt Count 276 D Neut % (Auto) 73 Lymph % (Auto) 11 [place] % (Auto) 9 Eos % (Auto) 2 Baso % (Auto) 1 Neut # (Auto) 8.5 H Lymph # (Auto) 1.3 [place] # (Auto) 1.0 H Eos # (Auto) 0.2 Baso # (Auto) 0.1 Immature Gran # (Auto) 0.61 H Absolute Nucleated RBC 0.00 Immature Gran % 5 H Nucleated RBC % 0 Sodium 141 Potassium 4.1 Chloride 111 H Carbon Dioxide 23.0 Anion Gap 7 BUN 20 Creatinine 0.8 Estim Creat Clear Calc 115.6 eGFR > 60 BUN/Creatinine Ratio 25 H Glucose 100 Calculated Osmolality 283 Calcium 9.2 Corrected Calcium 9.4 Phosphorus 2.4 Magnesium 2.1 Total Bilirubin 0.4 AST 26 ALT 21 Alkaline Phosphatase 74 Total Protein 6.1 Albumin 3.7 Globulin 2.4 Albumin/Globulin Ratio 1.5 Quality Measures Quality Measures VTE prophylaxis (Heparin 5000 SC) Advance care planning discussed with:: patient Assessment & Plan Assessment Current Active Medications: Generic Name Dose Route Start Last Admin Trade Name Freq PRN Reason Stop Dose Admin Acetaminophen 650 mg 03/02/24 21:25 Acetaminophen Supp 650 Mg Supp VT 04/01/24 21:24 Q6HR PRN Fever > 100.4 or Pain 1-10 Amiodarone HCl 200 mg 03/05/24 09:00 03/06/24 09:27 Amiodarone Hcl 200 Mg Tablet PO 04/04/24 08:59 200 mg BID GERARDO Administration Apixaban 5 mg 03/04/24 13:45 03/06/24 09:26 Apixaban 2.5 Mg Tablet PO 04/03/24 13:44 5 mg BID GERARDO Administration Aspirin 81 mg 03/03/24 09:00 03/06/24 09:25 Aspirin Ec 81 Mg Tabec PO 04/02/24 08:59 81 mg QDAY GERARDO Administration Atorvastatin Calcium 80 mg 03/07/24 09:00 Atorvastatin Calcium 20 Mg Tablet PO 04/02/24 08:59 QDAY GERARDO Clonazepam 1 mg 03/03/24 09:00 03/06/24 09:25 Clonazepam 0.5 Mg Tablet PO 03/08/24 08:59 1 mg BID GERARDO Administration Diltiazem HCl 240 mg 03/05/24 09:00 03/06/24 09:26 Diltiazem Cd 120 Mg Capcr PO 04/04/24 08:59 240 mg QDAY GERARDO Administration Heparin Sodium (Porcine) 5,000 unit 03/03/24 09:00 03/06/24 09:24 Heparin Sod Inj 5000 Unit/Ml Vial SC 03/17/24 08:59 5,000 unit Q12HR GERARDO Administration Ceftriaxone Sodium/Dextrose 50 mls @ 100 mls/hr 03/03/24 21:00 03/05/24 21:31 Rocephin/D5w 1gm Iv Premix IV 03/10/24 20:59 100 mls/hr DAILY@2100 GERARDO Administration Levetiracetam 1,500 mg 03/02/24 22:30 03/06/24 09:24 Levetiracetam Inj 100 Mg/Ml Vial 5ml IVP 04/01/24 22:29 1,500 mg Q12HR GERARDO Administration Lidocaine 1 patch 03/03/24 08:05 03/06/24 10:29 Lidocaine 5% 1 Patch TOP 04/02/24 08:04 1 patch UD PRN Administration PAIN Protocol Lorazepam 1 mg 03/03/24 02:47 03/03/24 15:26 Lorazepam 2 Mg/Ml Vial IVP 03/08/24 02:46 1 mg Q2H PRN Administration Breakthrough seizure Ondansetron HCl 4 mg 03/02/24 15:10 03/02/24 17:54 Ondansetron Inj 2 Mg/Ml Inj 2 Ml IV 04/01/24 15:09 4 mg Q4HR PRN Administration NAUSEA OR VOMITING Pantoprazole Sodium 40 mg 03/03/24 09:00 03/06/24 09:25 Pantoprazole 40 Mg Tablet PO 04/02/24 08:59 40 mg QDAY GERARDO Administration Phenytoin 100 mg 03/03/24 06:00 03/06/24 05:12 Phenytoin 100 Mg Capsr PO 04/02/24 05:59 100 mg TID GERARDO Administration Zonisamide 300 mg 03/03/24 09:00 03/06/24 09:26 Zonisamide 100 Mg Capsule PO 04/02/24 08:59 300 mg BID GERARDO Administration Plan 68-year-old male with past medical history of seizure disorder since childhood, recent admission at [facility] for 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 #New Onset Atrial Flutter with Rapid Ventricular Rate, Rate Controlled. Rapid Response called 03/03 afternoon for HRs in 160s. Patient found to be in atrial flutter. Pt does not attest to any symptoms Consulted Dr. [facility], stated to start patient on amiodarone drip 03/04 this AM patient in HR of 83 at bedside. 03/05 at this a.m. patient heart rate of 63, appears to have been controlled for greater than 12 hours CHADVASC score of 3 03/06/2024-per cardiology, may go home on current medication -Amiodarone load finished. Patient currently on amiodarone 200 Mg p.o. twice daily -Diltiazem 240 mg p.o. daily -Eliquis 5 Mg twice daily -Continue to reassess/monitor -Cardizem IV 20 Mg IV push x 1 if heart rate above 130s #Sepsis secondary to UTI growing E. coli #Leukocytosis #Fever Patient met SIRS criteria /4 with temperature 101.3, tachycardia, tachypneia, and leukocytosis. UA is showing positive leukocyte esterase, 109 RBC, 103 WBC, however no bacteria. Procalcitonin was 0.59. CXR was clear. Urine cultures grew E. coli Blood cultures negative growth for 48 hours -Started ceftriaxone IV (03/02-03/08/2024) -upon discharge patient will be discharged with oral course of Keflex #Breakthrough seizures #History of seizure disorder Patient had breakthrough seizure at facility with a second seizure witnessed by in ED, followed by postictal state. Received levetiracetam 1000 mg IV x1, lorazepam 1 mg IV x1, phenytoin 1000 mg IV x1, 1 L NS. Per chart review patient is well known by Neurology Dr. Vences. 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 Previous history of reported daily seizures. 03/04: no seizure like symptoms since admission. 03/06/2024: no seizures reported, patient will ok likely on home medication. Pending final recommendations from Dr. Vences. Plan: -Dysphagia 3/Reg liquids with precautions per speech -Levetiracetam 1500 mg IV BID -Phenytoin 100 mg TID, zonisamide 300 mg BID, clonazepam 1 mg BID -Seizure precautions -Aspiration precautions -Neurology consulted- pending recommendations for medication adjustments #Acute ischemic stroke rule out #History of right caudate nucleus ischemic stroke with left-sided deficits s/p tPA on 02/18/2024 Patient presented with altered mental status, most likely is post-ictal state versus new stroke. No new deficits, he presents with left-sided weakness which has been present since last hospitalization for CVA. CT head negative for acute hemorrhage, mildly hyperdense area in the posterior right parietal lobe, axial image 8, measuring 20 mm, which may be prominent sagittal sinus, small hyperdense mass at the convexity not excluded, such as incidental meningioma CTA head/neck negative Nurse swallow screen passed PT- pt will benefit from acute rehab placement after discharge -Neurology consulted- pending -MRI brain with and without contrast showed old 25 mm right caudate infarct -Continuing aspirin and Eliquis -Continue atorvastatin 80 mg HS daily DVT prophylaxis: Heparin 5,000 U subQ GI prophylaxis: Pantoprazole 40 mg PO daily Diet: Dysphagia 3 advanced Cohen: None Lines: Peripheral IV Antibiotics: Ceftriaxone [03/02/2023- 03/08/2024] CODE STATUS: FULL Reason for hospitalization: Breakthrough seizure, sepsis, CVA rule out-->likely DC tomorrow after Neurology final recs. - The patient's plan was discussed with attending Dr. Claros and senior residents Dr. Pineda. Carole Carrillo MD PGY1 Internal Medicine Senior Resident Attestation: I discussed with and supervised the video editing intern physician involved in the care of this patient. I personally saw and examined the patient and discussed the assessment and plan with the entire medicine team, including my attending. I agree with the assessment and plan as documented above. At bedside, patient is AOx3. Does not want to go back to [facility]. EEG was abnormal consistent with seizure activity, per neuro cont current medications, they will see them. Cont rocephin for UTI. Anticipate DC on 03/07/23. - Patient's care was discussed with my attending physician. Everton Pineda MD Internal Medicine PGY-3 Attending Provider Attestation/Addendum I attest that I was physically present for the evaluation, physical examination, lab and imaging review of the patient with the residents. I discussed the case with the residents and agree with the findings and plans of care as documented above. At bedside, patient appears comfortable and states he is feeling well. Stated he does not want to go back to [facility]. EEG results were back show seizure activity. Discussed with neurology, recommended continuation of current medication. Continues to be on IV Rocephin for E. coli UTI. Heart rate continues to be controlled on amiodarone and diltiazem. Awaiting neurology recommendations. Likely discharge tomorrow. Luis Antonio Claros MD
--- NOTE | 2024-03-06 15:15 | PC.CC ---
Rounding Note: pt pending neurology consult. Pt refusing to return to [place], request placement in another SNF.
[2024-03-06] MEDS: cefTRIAXone/D5w 1gm IV premix 50 ML IV (20:48)
[2024-03-06] MEDS: ACETAMINOPHEN 325 MG TABLET 650 MG PO (20:49)
--- NOTE | 2024-03-06 22:02 | PD.VPROG1 ---
Telemedicine visit statement This visit was conducted with the use of phone was obtained on 03/06/24 at 2202. Documentation for date of: 03/06/24 Subjective Subjective Interval history: Patient is in telemetry today. no complaints reported. Virtual exam Vital Signs Temp Pulse Resp BP Pulse Ox O2 Del Method O2 Flow Rate 97.1 F 72 19 111/74 98 Room Air 1 03/06/24 20:00 03/06/24 20:49 03/06/24 20:00 03/06/24 20:49 03/06/24 20:00 03/06/24 20:00 03/06/24 16:00 Objective Labs 03/06/24 04:25 03/06/24 04:25 Labs: Laboratory Results - last 24 hr 03/06/24 04:25 WBC 11.7 H D RBC 3.99 L Hgb 12.8 L Hct 38.9 L MCV 98 MCH 32.1 MCHC 32.9 RDW Std Deviation 47.8 H Plt Count 276 D Neut % (Auto) 73 Lymph % (Auto) 11 [place] % (Auto) 9 Eos % (Auto) 2 Baso % (Auto) 1 Neut # (Auto) 8.5 H Lymph # (Auto) 1.3 [place] # (Auto) 1.0 H Eos # (Auto) 0.2 Baso # (Auto) 0.1 Immature Gran # (Auto) 0.61 H Absolute Nucleated RBC 0.00 Immature Gran % 5 H Nucleated RBC % 0 Sodium 141 Potassium 4.1 Chloride 111 H Carbon Dioxide 23.0 Anion Gap 7 BUN 20 Creatinine 0.8 Estim Creat Clear Calc 115.6 eGFR > 60 BUN/Creatinine Ratio 25 H Glucose 100 Calculated Osmolality 283 Calcium 9.2 Corrected Calcium 9.4 Phosphorus 2.4 Magnesium 2.1 Total Bilirubin 0.4 AST 26 ALT 21 Alkaline Phosphatase 74 Total Protein 6.1 Albumin 3.7 Globulin 2.4 Albumin/Globulin Ratio 1.5 Assessment & Plan Problem List (1) Seizure disorder: Status: Chronic Assessment and plan: patient with chronic epilepsy: intractable with daily sz almost on multiple AEDs and VNS on board, not functioning at present as the battery . Refused to get the battery replaced. Continue all his home meds: including Dilantin, clonazepam, Keppra and Zonisamide EEG showed paroxysmal multifocal and generalized epileptiform discharges consistent with seizures. (2) Atrial fibrillation with rapid ventricular response: Status: Acute Assessment and plan: on rate control with amiodaraine and Eliquis Repeat MRI brain: stable right caudate nucleus infarction, nothing new. (3) CVA (cerebral vascular accident): Status: Acute Assessment and plan: with left residual hemiparesis form the recent event continue with asa and statin and eliquis for secondary prevention (4) UTI (urinary tract infection): Status: Acute Assessment and plan: being treated with Antibiotics.
[2024-03-07] VITALS (7 sets, daily range): BP systolic 116–132; BP diastolic 70–78; PULSE 59–74; RESP 18–24; TEMP 35.9–36.2; O2SAT 95–97; BMI 30.9
[2024-03-07] MEDS: PHENYTOIN 100 MG CAPSR PO ×2 (05:13→14:30)
[2024-03-07 05:46] LABS: Basophils # (Auto) 0.1 Thou/mm3 (0.0-0.2); Basophils % (Auto) 1 % (0-2.5); Eosinophils # (Auto) 0.3 Thou/mm3 (0.0-0.5); Eosinophils % (Auto) 3 % (0-10); Hemoglobin 12.8 g/dL (13.5-16.0); Immature Granulocytes % (Auto) 11 % (0-0); Immature Granulocytes Auto 1.16 Thou/mm3 (0.00-0.00); Lymphocytes # (Auto) 1.5 Thou/mm3 (1.0-4.8); Lymphocytes % (Auto) 14 % (10-50); Mean Corpuscular HGB Conc 33.7 g/dl (31.0-37.0); Mean Corpuscular Hemoglobin 32.2 pg (25.0-35.0); Mean Corpuscular Volume 96 fL (80-100); Monocytes % (Auto) 9 % (0-12); Neutrophils # (Auto) 6.8 Thou/mm3 (1.8-7.7); Neutrophils % (Auto) 63 % (37-80); Nucleated Red Blood Cell % 0 /100 WBC (0); Platelet Count 265 Thou/mm3 (140-440); RDW Standard Deviation 47.2 fL (35.1-43.9); Red Blood Count 3.97 Miln/mm3 (4.50-5.90); White Blood Count 10.8 Thou/mm3 (3.8-10.6)
[2024-03-07 06:12] LABS: Alanine Aminotransferase 30 U/L (10-49); Albumin, Serum 3.5 gm/dL (3.4-4.8); Albumin/Globulin Ratio 1.3 (1.2-2.2); Alkaline Phosphatase 72 U/L (46-116); Anion Gap 8 (7-16); Aspartate Amino Transferase 43 U/L (0-34); BUN/Creatinine Ratio 21 Ratio (12-20); Bilirubin,Total 0.2 mg/dL (0.3-1.2); Blood Urea Nitrogen 17 mg/dL (9-23); Calcium 9.2 mg/dL (8.3-10.6); Calcium (Corrected) 9.6 mg/dL (8.5-10.1); Carbon Dioxide 21.5 mMol/L (20.0-31.0); Chloride 111 mMol/L (98-107); Creatinine (Component) 0.8 mg/dL (0.6-1.3); Estimated Creatinine Clearance 115.6 mL/min (>60); Globulin 2.7 gm/dL (2.3-3.5); Glucose 94 mg/dL (74-106); Osmolality,Calculated 280 (275-295); Potassium 4.3 mMol/L (3.4-5.1); Sodium 140 mMol/L (136-145); Total Protein 6.2 gm/dL (5.7-8.2); eGFR > 60 See Note
--- NOTE | 2024-03-07 08:43 | PC.SS ---
Addendum entered by Yamileth Jensen 03/07/24 09:49: SS spoke to pt at bedside to confirm DC plan, SS informed pt wants [facility], pt agrees. SS spoke to Eleni at [facility] and she is ready to accept pt today Original Note: SS spoke to pt , Deanna in regards to DC plan, Deanna confirmed DC plan is [facility]. SS informed Chloea pt had refused [facility], she stated she spoke to him yesterday and that's where he will go. SS to meet with pt and confirm.
[2024-03-07] MEDS: DILTIAZEM CD 120 MG CAPCR 240 MG PO (10:01)
[2024-03-07] MEDS: ZONISAMIDE 100 MG CAPSULE 300 MG PO (10:01)
[2024-03-07] MEDS: levETIRAcetam INJ 100 MG/ML VIAL 5ML 1500 MG IVP (10:01)
[2024-03-07] MEDS: ATORVASTATIN CALCIUM 20 MG TABLET 80 MG PO (10:01)
[2024-03-07] MEDS: PANTOPRAZOLE 40 MG TABLET PO (10:02)
[2024-03-07] MEDS: ASPIRIN EC 81 MG TABEC PO (10:02)
[2024-03-07] MEDS: clonazePAM 0.5 MG TABLET 1 MG PO (10:02)
[2024-03-07] MEDS: APIXABAN 2.5 MG TABLET 5 MG PO (10:02)
[2024-03-07] MEDS: HEPARIN SOD INJ 5000 UNIT/ML VIAL SC (10:03)
[2024-03-07] MEDS: AMIODARONE HCL 200 MG TABLET PO (10:03)
--- NOTE | 2024-03-07 11:03 | PC.SS ---
Pt has DC orders, pt does not possess coverage for ambulance transport. SS contacted Deanna pt , who stated she is unable to cover cost at this time. [facility] transport will be utilized being pt is not on O2. SS spoke to Daisy with No, pt information provided. SS spoke to Bhavik KENNY who requested 1500 p/u time. SS updated [facility], pending a call back from [facility].
--- NOTE | 2024-03-07 13:15 | ESPR_ITS ---
<Statement entered by Carol West MD - 03/09/24 13:07> I personally examined the patient clinically doing better does not complain any chest pain shortness breath appears to be in sinus rhythm no further episodes of atrial fibrillation agree with the treatment plan recommendation as documented by Dr. Simon Pillai, PGY 2. Continue amiodarone and rest of medications all essential complaints as noted reviewed by me personally. Documentation for date of: 03/07/24 Subjective Subjective Interval history: Patient seen and assessed at bedside. Patient denies any chest pain or palpitations. Patient will likely be discharged today. Exam Vital Signs Temp Pulse Resp BP Pulse Ox O2 Del Method O2 Flow Rate 96.7 F L 74 19 124/78 97 Room Air 1 03/07/24 12:00 03/07/24 12:00 03/07/24 12:00 03/07/24 12:00 03/07/24 12:00 03/07/24 12:00 03/06/24 16:00 Narrative Exam GENERAL: NAD, responsive/cooperative. A&Ox3 CARDIO: No chest pain on palpation. Heart RRR, no murmurs, rubs, or gallops. PULM: No noted coughing/dyspnea. Lungs CTA B/L GI: Abdomen soft, nondistended, no pain on palpation. BSx4 SKIN/MSK/EXT: No wounds/rashes/edema/amputations, no pain on palpation. Pedal pulses present B/L Objective Labs 03/07/24 04:28 03/07/24 04:28 Labs: Laboratory Results - last 24 hr 03/07/24 04:28 WBC 10.8 H RBC 3.97 L Hgb 12.8 L Hct 38.0 L MCV 96 MCH 32.2 MCHC 33.7 RDW Std Deviation 47.2 H Plt Count 265 Neut % (Auto) 63 Lymph % (Auto) 14 [place] % (Auto) 9 Eos % (Auto) 3 Baso % (Auto) 1 Neut # (Auto) 6.8 Lymph # (Auto) 1.5 [place] # (Auto) 1.0 H Eos # (Auto) 0.3 Baso # (Auto) 0.1 Immature Gran # (Auto) 1.16 H Absolute Nucleated RBC 0.00 Immature Gran % 11 H Nucleated RBC % 0 Sodium 140 Potassium 4.3 Chloride 111 H Carbon Dioxide 21.5 Anion Gap 8 BUN 17 Creatinine 0.8 Estim Creat Clear Calc 115.6 eGFR > 60 BUN/Creatinine Ratio 21 H Glucose 94 Calculated Osmolality 280 Calcium 9.2 Corrected Calcium 9.6 Magnesium 2.0 Total Bilirubin 0.2 L AST 43 H ALT 30 Alkaline Phosphatase 72 Total Protein 6.2 Albumin 3.5 Globulin 2.7 Albumin/Globulin Ratio 1.3 Quality Measures Quality Measures VTE prophylaxis (Heparin 5000 SC) Advance care planning discussed with:: patient Assessment & Plan Assessment Current Active Medications: Generic Name Dose Route Start Last Admin Trade Name Freq PRN Reason Stop Dose Admin Acetaminophen 650 mg 03/06/24 20:15 03/06/24 20:49 Acetaminophen 325 Mg Tablet PO 04/05/24 20:14 650 mg Q6HR PRN Administration Fever >100.4 or Pain 1-10 Protocol Acetaminophen 650 mg 03/07/24 09:38 Acetaminophen Supp 650 Mg Supp NE 04/01/24 21:24 Q6HR PRN Fever > 100.4 or Pain 1-10 Protocol Amiodarone HCl 200 mg 03/05/24 09:00 03/07/24 10:03 Amiodarone Hcl 200 Mg Tablet PO 04/04/24 08:59 200 mg BID GERARDO Administration Apixaban 5 mg 03/04/24 13:45 03/07/24 10:02 Apixaban 2.5 Mg Tablet PO 04/03/24 13:44 5 mg BID GERARDO Administration Aspirin 81 mg 03/03/24 09:00 03/07/24 10:02 Aspirin Ec 81 Mg Tabec PO 04/02/24 08:59 81 mg QDAY GERARDO Administration Atorvastatin Calcium 80 mg 03/07/24 09:00 03/07/24 10:01 Atorvastatin Calcium 20 Mg Tablet PO 04/02/24 08:59 80 mg QDAY GERARDO Administration Clonazepam 1 mg 03/03/24 09:00 03/07/24 10:02 Clonazepam 0.5 Mg Tablet PO 03/08/24 08:59 1 mg BID GERARDO Administration Diltiazem HCl 240 mg 03/05/24 09:00 03/07/24 10:01 Diltiazem Cd 120 Mg Capcr PO 04/04/24 08:59 240 mg QDAY GERARDO Administration Ceftriaxone Sodium/Dextrose 50 mls @ 100 mls/hr 03/03/24 21:00 03/06/24 20:48 Rocephin/D5w 1gm Iv Premix IV 03/10/24 20:59 100 mls/hr DAILY@2100 GERARDO Administration Levetiracetam 1,500 mg 03/02/24 22:30 03/07/24 10:01 Levetiracetam Inj 100 Mg/Ml Vial 5ml IVP 04/01/24 22:29 1,500 mg Q12HR GERARDO Administration Lidocaine 1 patch 03/03/24 08:05 03/06/24 10:29 Lidocaine 5% 1 Patch TOP 04/02/24 08:04 1 patch UD PRN Administration PAIN Protocol Lorazepam 1 mg 03/03/24 02:47 03/03/24 15:26 Lorazepam 2 Mg/Ml Vial IVP 03/08/24 02:46 1 mg Q2H PRN Administration Breakthrough seizure Ondansetron HCl 4 mg 03/02/24 15:10 03/02/24 17:54 Ondansetron Inj 2 Mg/Ml Inj 2 Ml IV 04/01/24 15:09 4 mg Q4HR PRN Administration NAUSEA OR VOMITING Protocol Pantoprazole Sodium 40 mg 03/03/24 09:00 03/07/24 10:02 Pantoprazole 40 Mg Tablet PO 04/02/24 08:59 40 mg QDAY GERARDO Administration Phenytoin 100 mg 03/03/24 06:00 03/07/24 05:13 Phenytoin 100 Mg Capsr PO 04/02/24 05:59 100 mg TID GERARDO Administration Zonisamide 300 mg 03/03/24 09:00 03/07/24 10:01 Zonisamide 100 Mg Capsule PO 04/02/24 08:59 300 mg BID GERARDO Administration Plan 68-year-old male with past medical history of seizure disorder since childhood, recent admission at [facility] for 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 Cardiology consulted for new onset A- flutter with RVR. #Atrial Flutter with RVR?resolved -Continue with diltiazem 240 mg for BP and rhythm control, stop amiodarone. -Keep potassium above 4 and magnesium above 2 ?Continue Eliquis, but monitor patient for any signs of bleeding. #Sepsis secondary to UTI #Leukocytosis #Fever #Breakthrough seizures #History of seizure disorder #Acute ischemic stroke rule out #History of right caudate nucleus ischemic stroke with left-sided deficits Management per primary team Case discussed with attending pharmacist assistant Dr. Brett Pillai MD PGY3.
--- NOTE | 2024-03-07 15:38 | ESDS_ITS ---
<Statement entered by Luis Antonio Claros MD - 03/07/24 16:58> I attest that I was physically present for the evaluation, physical examination, lab and imaging review of the patient with the residents. I discussed the case with the residents and agree with the findings and plans of care as documented above. At bedside today, patient appears comfortable and denies any complaints. Saturating well on room air. Neurology recommended continuation of home dosing for antiepileptics. Brain imaging showed stable findings from his previous stroke. Patient deemed stable for discharge to SNF for continued physical therapy on oral antibiotics. Luis Antonio Claros MD <Statement entered by Zoltan Mera MD - 03/07/24 15:51> I saw and examined the patient, and I agree with current management stated by Dr Rajan DO,PGY1. Plan of care was discussed with the attending physician and resident physician. Disclaimer: Despite multiple revisions, due to the dictation software being used, the document bellow may not be free of grammatical errors including phonetic/typographic errors. However, this does not deter from our commitment to providing health care in the patient's best interest in mind. Dr. Samaria MD, PGY 2 Planned Discharge Date 03/07/24 DS: Providers Provider Date of admission: 03/02/24 21:26 Primary care physician: Michael Fulton MD Admitting Provider: Albino Parra MD Attending Provider on Admission: Luis Antonio Claros MD Consults: 03/02/24 15:10 Consult to Neurology / Tele-Neurology Routine Comment: Consulting Provider: [facility] 03/03/24 01:32 Referral Speech Therapy Routine Comment: 03/03/24 05:06 Referral Physical Therapy Routine Comment: Physician Instructions: 03/03/24 16:18 Consult to Cardiology Urgent Comment: arrhythmia Consulting Provider: Carol West 03/06/24 09:57 Consult to Neurology / Tele-Neurology Routine Comment: Consulting Provider: Jasson Vences Attending Provider on DC: Alicia Silva Discharging Provider: Alicia Silva DS: Diagnosis Problem List Completed Was Problem List Reviewed/Reconciled?: Yes Hospital Course Hospital Course Hospital course: Patient is a 68-year-old male with past medical history of seizure disorder since childhood, recent admission at 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 due to concern for seizure-like activity and altered mental status. Per report patient was thought to have a seizure with eye twitching and was altered afterward, was found to have left-sided weakness however it is unclear whether this is worsening weakness as patient had residual left-side weakness from his recent stroke. Therefore patient was brought to the ED and a stroke alert was called. History obtained from at bedside as patient unable to answer questions. states that at the facility yesterday he was conversational. Per he has not had a seizure since the last hospitalization 02/18/2024. Patient currently is wheelchair bound. He has a long history of seizures and is on 4 anti-epileptics, followed by Dr. Vences. While in the ED at the bedside noted again seizure-like activity around 6:50 pm which includes flickering eyebrows and repetitive language followed by postictal state. Patient was then given lorazepam 1 mg x1 and phenytoin [address] head negative for acute hemorrhage, mildly hyperdense area in the posterior right parietal lobe. CTA negative for stroke. Patient was admitted for altered mental status secondary to seizure. MRI brain with and without contrast showed old 25 mm right chronic infarct. Over the course of patient's hospital stay patient return to his neurological baseline, as noted by patient and . No seizure- like activity in the hospital. Rapid response was called to hide heart rate in 160s, found to be in new onset a flutter with RVR. Patient started on amiodarone drip and transition to oral amiodarone as well as diltiazem, Eliquis. Patient was also treated for UTI secondary to E. coli, and will finish his antibiotic course as outpatient. Neurology consult and he states to continue patient's home regimen as patient has chronic epilepsy with intractable daily seizures almost on multiple AEDs and VNS. Patient's AEDs and VNS batteries have however he has refused to get the battery replaced. EEG showed proximal multifocal generalized epileptiform discharge consistent with seizure. Patient will be discharged to rehabilitation facility and encouraged to follow-up with his primary care physician within 1 week. Patient to follow-up with Dr. Vences upon discharge. Patient to discharge with new medications for atrial fibrillation. Patient and are amenable to discharge Status at Discharge Cognitive/behavioral status at discharge: Patient is stable on discharge Time Spent with Patient Time attestation: Total time spent providing and/or coordinating discharge services: Exam Vital Signs Temp Pulse Resp BP Pulse Ox O2 Del Method O2 Flow Rate 97.2 F 67 24 H 130/72 96 Room Air 1 03/07/24 14:43 03/07/24 14:43 03/07/24 14:43 03/07/24 14:43 03/07/24 14:43 03/07/24 14:43 03/06/24 16:00 Narrative Exam General Appearance: Alert & Oriented X3, well-nourished [sex] who is lying in bed in [no acute distress] HEENT: Skull symmetrical and atraumatic. Conjunctivae pin and moist. Pupils equal, round, reactive to light and accommodation (PERRL). External ear without lesion or discharge. Straight, nares patient, mucosa pink, no discharge. No thyroid nodule appreciated. No cervical lymphadenopathy. Cardio: Normal Rate and Rhythm with S1 and S2 heart sounds. No murmurs or extra heart sounds auscultated. No bruits on carotid auscultation. No peripheral edema or cyanosis. Lungs: Symmetric with good expansion. Chest and back non-tender. Breath sounds vesicular without crackles, wheezing or rhonchi Abdomen: Non-tender, Non-distended, Normal Reactive Bowel Sounds Neuro: Alert, cooperative, oriented to person, place, and time. Speech clear. CN grossly intact. Upper motor strength 5/5 and Lower motor strength 5/5. Sensation intact. Discharge Plan Plan Patient Disposition: Xfer Skilled Nsg Fac (SNF) Patient condition on transfer: Stable Care Plan Goals: Please take your home medications as directed Please take your new discharge medications as directed: Amiodarone 200 mg orally twice a day Apixaban 5 mg orally twice a day Diltiazem HCl 240 mg once a day Please follow-up with your primary care provider within 1 week of discharge. If you do not have a primary care provider you can establish care with [facility]. [address], [address], [place] [address] Please follow-up with your weekend caregiver within 2 weeks upon discharge Prescriptions/Referrals Prescriptions/Med Rec: New apixaban 5 mg tablet 5 mg PO BID 30 Days Qty: 60 0RF diltiazem HCl 240 mg capsule,extended release 24hr 240 mg PO QDAY 30 Days Qty: 30 0RF cephalexin 500 mg capsule 500 mg PO BID 2 Days Qty: 4 0RF Continued zonisamide 100 MG capsule 300 mg PO BID Qty: 0 clonazepam 1 mg tablet 1 mg PO BID Patient Comments: TAKE 1 TABLET BY MOUTH TWICE DAILY FOR EPILEPSY phenytoin sodium extended 100 mg capsule 100 mg PO TID Patient Comments: TAKE 1 CAPSULE BY MOUTH 3 TIMES DAILY ALTERNATING WITH 2 CAPSULES BY MOUTH TWICE DAILY aspirin 81 mg Tablet,Delayed Release (Dr/Ec) 81 mg PO QDAY 30 Days Qty: 30 0RF atorvastatin 80 mg tablet 80 mg PO QDAY Qty: 30 0RF pantoprazole 40 mg tablet,delayed release (DR/EC) 40 mg PO QDAY 14 Days Qty: 14 0RF levetiracetam 750 mg tablet 1,500 mg PO BID bisacodyl [Dulcolax (bisacodyl)] 10 mg Suppository 10 mg PA DAILY Discontinued clopidogrel [Plavix] 75 mg tablet 75 mg PO QDAY 30 Days Qty: 30 0RF Referrals: Michael Fulton MD [Primary Care Provider] - Jasson Vences MD [Physician] - Patient/Caregiver Discharge Instructions Discharge Activity: activity as tolerated Other Discharge Activity Instructions:: Please take your home medications as directed Please take your new discharge medications as directed: Apixaban 5 mg orally twice a day Diltiazem HCl 240 mg once a day Cephalexin 500 mg orally twice a day for 2 days Please follow-up with your primary care provider within 1 week of discharge. If you do not have a primary care provider you can establish care with [facility] [address], [address], [place], [place] [id number] Please follow-up with your weekend caregiver within 2 weeks upon discharge Education Materials: Urinary Tract Infections in Men, ED Atrial Flutter, ED Seizure, Recurrent (Adult) Print Language: Burundian Stand Alone Forms: Lucy Award Info., Patient Portal Info Letter Discharge Order Discharge Orders: Discharge (Routine); Ordered 03/07/24 Ordered By: Zoltan Mera Quality Discharge Quality Measures VTE prophylaxis
== END 2024-03-07 14:55 | disposition skilled nursing facility (03) | DRG 871 ==
LOC: SERX 20:43 → SERHOLD 21:43 → S2NX 23:06
PROVIDERS: Registered Nurse General Practice; Student in an Organized Health Care Education/Training Program; Admitting Provider Internal Medicine; Emergency Provider Emergency Medicine; PCP Family Medicine; Visit Provider Student in an Organized Health Care Education/Training Program
DX: A41.51 Sepsis due to Escherichia coli [E. coli] (principal); G93.41 Metabolic encephalopathy; N39.0 Urinary tract infection, site not specified; I48.92 Unspecified atrial flutter; I69.354 Hemiplegia and hemiparesis following cerebral infarction affecting left non-dominant side; G40.909 Epilepsy, unspecified, not intractable, without status epilepticus; I48.0 Paroxysmal atrial fibrillation; Z99.3 Dependence on wheelchair; Z79.01 Long term (current) use of anticoagulants; Z79.82 Long term (current) use of aspirin; Z79.899 Other long term (current) drug therapy
CPT/HCPCS: 36415; 70450; 70496; 70498; 70544; 71045; 80053; 80307; 81001; 82550; 83605; 83615; 83690; 83735; 83880; 84100; 84145; 84484; 84703; 85025; 85610; 85730; 87040; 87077; 87081; 87086; 87186; 87400; 87811; 92526; 92610; 93005; 93971; 95816; 96365; 96374; 96375; 97162; 99285; A4649; J0283; J0696; J1165; J1643; J1953; J2060; J2270; J2405; J3475; J3490; J7030; J7040; Q9967; A9270

== ENCOUNTER → 2024-08-03 | Outpatient (CLI) | payer MEDICARE, BC, SELFPAY ==
[2024-08-03 11:39] LABS: Basophils # (Auto) 0.1 Thou/mm3 (0.0-0.2); Basophils % (Auto) 1 % (0-2.5); Eosinophils # (Auto) 0.1 Thou/mm3 (0.0-0.5); Eosinophils % (Auto) 1 % (0-10); Hematocrit 41.2 % (41.0-53.0); Immature Granulocytes % (Auto) 6 % (0-0); Immature Granulocytes Auto 0.95 Thou/mm3 (0.00-0.00); Lymphocytes # (Auto) 1.4 Thou/mm3 (1.0-4.8); Lymphocytes % (Auto) 10 % (10-50); Mean Corpuscular Volume 97 fL (80-100); Monocytes # (Auto) 1.1 Thou/mm3 (0.0-0.8); Monocytes % (Auto) 8 % (0-12); Neutrophils # (Auto) 11.1 Thou/mm3 (1.8-7.7); Neutrophils % (Auto) 75 % (37-80); Nucleated Red Blood Cell % 0 /100 WBC (0); Platelet Count 426 Thou/mm3 (140-440); RDW Standard Deviation 52.3 fL (35.1-43.9); Red Blood Count 4.24 Miln/mm3 (4.50-5.90); White Blood Count 14.8 Thou/mm3 (3.8-10.6)
[2024-08-03 12:05] LABS: Alanine Aminotransferase 14 U/L (10-49); Albumin, Serum 4.3 gm/dL (3.4-4.8); Alkaline Phosphatase 72 U/L (46-116); Anion Gap 15 (7-16); Aspartate Amino Transferase 19 U/L (0-34); BUN/Creatinine Ratio 18 Ratio (12-20); Bilirubin,Direct 0.2 mg/dL (0.0-0.3); Bilirubin,Total 0.5 mg/dL (0.3-1.2); Blood Urea Nitrogen 18 mg/dL (9-23); Calcium 10.1 mg/dL (8.3-10.6); Carbon Dioxide 23.4 mMol/L (20.0-31.0); Cardiac Risk Estimate 2.6 RATIO (4.0-6.7); Chloride 103 mMol/L (98-107); Cholesterol 156 mg/dL (132-200); Glucose 110 mg/dL (74-106); HDL Cholesterol 59 mg/dL (40-60); LDL Cholesterol,Calculated 75 mg/dL (0-130); Osmolality,Calculated 284 (275-295); Potassium 4.9 mMol/L (3.4-5.1); Sodium 141 mMol/L (136-145); Thyroid Stimulating Hormone 0.71 uIU/mL (0.55-4.78); Total Protein 6.8 gm/dL (5.7-8.2); Triglycerides 109 mg/dL (30-150); eGFR > 60 See Note
== END | disposition home or self-care (01) ==
PROVIDERS: PCP Family Medicine; Referring Provider Internal Medicine Cardiovascular Disease; Visit Provider Internal Medicine Cardiovascular Disease
DX: E78.5 Hyperlipidemia, unspecified (principal); I10 Essential (primary) hypertension
CPT/HCPCS: 36415; 80048; 80061; 80076; 84439; 84443; 85025

== ENCOUNTER → 2024-08-18 | Outpatient (CLI) | payer MEDICARE, BC, SELFPAY ==
[2024-08-18 12:59] LABS: Collection Type, Urine Clean Catch; Squamous Epithelial Cell,Urine 0 /hpf (0-5)
[2024-08-18 13:41] LABS: Bacteria,Urine 2+; Bilirubin,Urine Negative (Negative); Blood,Urine 2+ (Negative); Clarity,Urine Turbid (Clear/Hazy); Color,Urine Yellow (Lt Yel-Yel); Glucose, Urine Negative (Negative); Ketones,Urine Negative (Negative); Leukocyte Esterase,Urine Positive (Negative); Nitrite,Urine Positive (Negative); PH,Urine 6.5 (5.0-7.0); Protein,Urine 1+ (Neg - Trace); RBC,Urine 137 /hpf (0-3); Specific Gravity,Urine 1.026 (1.001-1.035); WBC,Urine 436 /hpf (0-5)
[2024-08-18 14:02] LABS: Culture Indicated,Urine Yes
== END | disposition home or self-care (01) ==
PROVIDERS: Referring Provider Internal Medicine; Visit Provider Internal Medicine
DX: N30.00 Acute cystitis without hematuria (principal)
CPT/HCPCS: 81001; 87077; 87086; 87186

== ENCOUNTER → 2024-08-23 | Outpatient (CLI) | payer MEDICARE, BC, SELFPAY | END | disposition home or self-care (01) | PROVIDERS: PCP Family Medicine; Referring Provider Internal Medicine Cardiovascular Disease; Visit Provider Internal Medicine Cardiovascular Disease | DX: I70.0 Atherosclerosis of aorta (principal) | CPT/HCPCS: 93306 ==

== ENCOUNTER → 2025-01-09 | Outpatient (CLI) | payer MEDICARE, BC, SELFPAY ==
[2025-01-09 14:17] LABS: Collection Type, Urine Clean Catch; Squamous Epithelial Cell,Urine 0 /hpf (0-5)
[2025-01-09 17:01] LABS: Bacteria,Urine Rare; Bilirubin,Urine Negative (Negative); Blood,Urine 3+ (Negative); Clarity,Urine Turbid (Clear/Hazy); Color,Urine Lt-Brown (Lt Yel-Yel); Culture Indicated,Urine Not Indicated; Glucose, Urine Negative (Negative); Ketones,Urine Negative (Negative); Leukocyte Esterase,Urine Positive (Negative); Nitrite,Urine Negative (Negative); PH,Urine 7.0 (5.0-7.0); Protein,Urine Trace (Neg - Trace); RBC,Urine 3 /hpf (0-3); Specific Gravity,Urine 1.006 (1.001-1.035); Urobilinogen,Urine Negative mg/dL (0.0-1.0); WBC,Urine 4 /hpf (0-5)
== END | disposition home or self-care (01) ==
LOC: SLDO 14:10
PROVIDERS: PCP Internal Medicine; Referring Provider Internal Medicine; Visit Provider Internal Medicine
DX: N39.0 Urinary tract infection, site not specified (principal)
CPT/HCPCS: 81001

== ENCOUNTER → 2025-02-03 | Outpatient (CLI) | payer MEDICARE, BC, SELFPAY ==
[2025-02-03 12:19] LABS: Collection Type, Urine Clean Catch; Squamous Epithelial Cell,Urine 0 /hpf (0-5)
[2025-02-03 13:34] LABS: Amorphous Crystals,Urine Present (Absent); Bacteria,Urine 1+; Bilirubin,Urine Negative (Negative); Blood,Urine Negative (Negative); Calcium Oxalate Crystals,Urine 2+; Color,Urine Lt-Yellow (Lt Yel-Yel); Glucose, Urine Negative (Negative); Ketones,Urine Negative (Negative); Leukocyte Esterase,Urine Positive (Negative); Nitrite,Urine Positive (Negative); PH,Urine 7.0 (5.0-7.0); Protein,Urine Negative (Neg - Trace); RBC,Urine 6 /hpf (0-3); Specific Gravity,Urine 1.019 (1.001-1.035); Urobilinogen,Urine Negative mg/dL (0.0-1.0); WBC,Urine 12 /hpf (0-5)
[2025-02-03 13:40] LABS: Clarity,Urine Hazy (Clear/Hazy)
== END | disposition home or self-care (01) ==
LOC: SLDO 12:17
PROVIDERS: PCP Student in an Organized Health Care Education/Training Program; Referring Provider Student in an Organized Health Care Education/Training Program; Visit Provider Student in an Organized Health Care Education/Training Program
DX: N39.0 Urinary tract infection, site not specified (principal)
CPT/HCPCS: 81001; 87077; 87086; 87186